=== PATIENT | female | born 1995 | race Caucasian/White ===

== ENCOUNTER 2020-10-09 16:48 | Emergency (ER) | payer MEDICAID, SELFPAY ==
--- NOTE | 2020-10-09 17:20 | XR_ITS ---
EXAMINATION: XR FOOT, LEFT CLINICAL INFORMATION: Pain fourth digit with swelling after jamming foot into door. COMPARISON: None TECHNIQUE: AP, lateral, and oblique views of the left foot. FINDINGS: There is a comminuted fracture of the terminal tuft of the distal phalanx of the fourth digit. No other fractures are seen. There is associated soft tissue swelling XR/XR foot LT 2V IMPRESSION: Fracture terminal tuft distal phalanx fourth digit.
[2020-10-09 17:24] VITALS: BP 132/78; PULSE 78; RESP 16; TEMP 36.7; O2SAT 100; BMI 23.4
--- NOTE | 2020-10-09 17:35 | ED.GENADULT ---
HPI - General Adult General Chief complaint: Extremity Injury, Lower Stated complaint: TOE INJURY Time Seen by Provider: 10/09/20 17:16 Source: patient Mode of arrival: ambulatory History of Present Illness HPI narrative: A 25-year-old female otherwise healthy presenting to the emergency department for left toe pain. She states she stubbed her toe the entrance way walking to her door. She is not sure if she has an open wound. She is able to ambulate. She denies other injuries. Unknown last tetanus. Related Data Allergies Allergy/AdvReac Type Severity Reaction Status Date / Time No Known Allergies Allergy Verified 10/09/20 17:32 [No Known Allergies*] Review of Systems Constitutional: Constitutional: Denies fever(s) Eyes: Eyes: Reports no additional eye complaints ENT: Reports system reviewed and no additional complaints, except as documented and Denies dizziness Cardiovascular: Cardiovascular: Denies chest pain and Denies dyspnea Respiratory: Respiratory: Denies dyspnea Gastrointestinal: Gastrointestinal: Denies abdominal pain Musculoskeletal: Comments: left toe pain Neurologic: Denies dizziness Psychiatric: Psychiatric: Reports no additional psychiatric complaints Endocrine: Endocrine: Reports no additional endocrine complaints Hematologic/Lymphatic: Hematologic/Lymphatic: Denies easy bleeding [facility] Past Medical History Medical History Asthma Social History Social History Advance Directives: No Advance Directives Information Provided: No Physical Exam Vital Signs: Vital Signs: Last Vital Signs Temp 98.0 F 10/09/20 17:24 Pulse 78 10/09/20 17:24 Resp 16 10/09/20 17:24 BP 132/78 10/09/20 17:24 Pulse Ox 100 10/09/20 17:24 Body Mass Index 23.4 Const: Other: Sitting upright texting on the cellphone Orientation/consciousness: patient oriented x3 HENMT: Head: Yes atraumatic Eyes: Pupils: Equal, round and reactive pupils present Neck: Neck: Yes supple Chest: Chest palpation & inspection: normal inspection of the chest Resp: Effort & Inspection: normal respiratory effort and able to speak in complete sentences Cardio: Rate: regular rate GI: Inspection: No distended Back/Spine/Pelvis: Other: normal ROM Skin: Other: abrasion noted to dorsal aspect of 4th left toe, no laceration Neuro: General: patient oriented x3 Cranial nerves: Yes Equal, round and reactive pupils present Extrem: Other: LLE- positive pedal pulse, swelling noted to left toe with ecchymosis, unable to assess capillary refill since her toes are painted, swelling also noted to 5th digit no swelling or tenderness to proximal foot, no evidence of open fracture, compartment soft, neurovascularly intact Medical Decision Making MDM Narrative Medical decision making narrative: 25-year-old female presenting to the emergency department after injuring her left foot Vitals stable, nontoxic appearing, hemodynamically stable Was sent for x-ray of her left foot to assess for fracture given swelling. No evidence of a LeFort fracture. No evidence of a Velasquez fracture. She is otherwise neurovascularly intact. Compartments are soft. No injuries to other extremities. No evidence of infectious symptoms, area appears to be ecchymosis secondary to the injury, and does not appear to be erythematous suggesting underlying cellulitis. no evidence of hyphema as ecchymosis seems to be more dorsal and inferior. Will israel tape her 4th digit to her 3rd digit. Will give her a postop shoe. She is ambulating while it is not need crutches. Will update her tetanus given the abrasion. No evidence of an open fracture. No evidence of foreign body. Discussed icing to help with the swelling. Tylenol Motrin for pain. Discharge Plan Discharge Clinical Impression: Fracture of toe of left foot Patient Disposition: Home, Self-Care Instructions: Toe Fracture (ED), R.I.C.E. Treatment (ED) Additional Instructions: Please return to the emergency department if your pain is not controlled, worsening swelling, weakness, dizziness, difficulty walking, vomiting, or any other concerning symptoms. We recommend you elevate your foot and place ice pack to help with the swelling. Take tylenol or motrin as directed for pain if needed. Use post op shoe when walking, when the swelling goes down you may resume using your other shoes. Your tetanus was updated today.
== END 2020-10-09 18:31 | disposition home or self-care (01) ==
PROVIDERS: Emergency Provider Emergency Medicine; PCP Internal Medicine Geriatric Medicine
DX: S92.902A Unspecified fracture of left foot, initial encounter for closed fracture (principal); M79.672 Pain in left foot; Y29.XXXA Contact with blunt object, undetermined intent, initial encounter; Y93.9 Activity, unspecified; Y92.9 Unspecified place or not applicable; Y99.9 Unspecified external cause status
CPT/HCPCS: 73620; 90471; 90715; 99284

== ENCOUNTER 2020-11-08 16:17 | Emergency (ER) | payer MEDICAID, SELFPAY ==
[2020-11-08 17:30] VITALS: BP 125/71; PULSE 75; RESP 16; TEMP 36.8; O2SAT 100; BMI 23.4
--- NOTE | 2020-11-08 18:29 | ED.URI ---
HPI - URI/Sore Throat General Chief Complaint: Upper Respiratory Symptoms Stated Complaint: SOB Time Seen by Provider: 11/08/20 17:48 Source: patient Mode of arrival: ambulatory Limitations: no limitations History of Present Illness HPI Narrative: This is a 25-year-old female who reports mild history of asthma otherwise no significant health problems presenting with complaint of cough for past several days also some rhinorrhea and myalgias. MD elicited complaint: cough Pertinent past history: asthma Onset (ago): day(s) Severity: mild Able to tolerate fluids by mouth: Yes Relieving factors: nothing Treatments prior to arrival: none Related Data Previous Rx's Medication Instructions Recorded azithromycin [Zithromax Z-Michael] 250 mg PO DAILY 5 Days #6 tab 11/08/20 prednisone 40 mg PO DAILY 5 Days #10 tab 11/08/20 Allergies Allergy/AdvReac Type Severity Reaction Status Date / Time No Known Allergies Allergy Verified 10/09/20 17:32 [No Known Allergies*] Review of Systems Review of Systems: Constitutional: No Weight loss, No Fever, + Chills, No Night Sweats, No Fatigue, No Malaise ENT/Mouth: No Hearing loss, No Ear Pain, No Sinus Pain, No Hoarseness, No sore throat, + Rhinorrhea, No Swallowing Difficulty Eyes: No Eye Pain, No Swelling, No Redness, No Foreign Body, No Discharge, No Vision Changes Cardiovascular: No Chest Pain, No SOB, No Dyspnea on Exertion, No Orthopnea, No Edema, No Palpitations Respiratory: + Cough, No Sputum, No Wheezing, No Smoke Exposure, No Dyspnea Gastrointestinal: No Nausea, No Vomiting, No Diarrhea, No Constipation, No abdominal Pain, No Hematochezia, No Melena Genitourinary: no irregular bleeding, No Dysuria, No Urinary Frequency, No Hematuria, No Urinary Incontinence, No Urgency, No Flank Pain, No Urinary Flow Changes, No Hesitancy Musculoskeletal: No joint pain, No Myalgias, No Joint Swelling Skin: No Skin Lesions, No rash Neuro: No Weakness, No Numbness, No Paresthesias, No Loss of Consciousness, No Dizziness, No Headache Psych: No Social Issues Heme/Lymph: No Bruising, No Bleeding,No Lymphadenopathy Endocrine: No Polyuria, No Polydipsia, No Temperature Intolerance Yes all other systems are reviewed and are negative [facility] Past Medical History Medical History Asthma Social History Social History Advance Directives: No Advance Directives Information Provided: No Physical Exam Vital Signs: Vital Signs: Last Vital Signs Temp 98.3 F 11/08/20 17:30 Pulse 75 11/08/20 17:30 Resp 16 11/08/20 17:30 BP 125/71 11/08/20 17:30 Pulse Ox 100 11/08/20 17:30 Body Mass Index 23.4 Reviewed Const: General: cooperative and healthy appearing; No acute distress or intoxicated appearing Nutritional Appearance: average body habitus Orientation/consciousness: patient oriented x3 HENMT: Head: Yes normal to inspection Ears: hearing grossly normal bilaterally Eyes: General: appearance normal, both eyes and all related structures Visual Jacobs: normal visual jacobs by confrontation Neck: Neck: Yes normal visual inspection, No positive Brudzinski's sign, No positive Kernig's sign and No tender Thyroid: Thyroid normal Chest: Chest palpation & inspection: normal inspection of the chest Resp: Other: Mild dry bronchial cough Effort & Inspection: normal respiratory effort Auscultation: clear to auscultation bilaterally Cardio: Jugular venous distension: no JVD Rhythm: regular rhythm Heart sounds: S1 normal heart sound present and S2 normal heart sound present GI: Inspection: Yes normal to inspection Percussion: Yes normal to percussion Auscultation: normal bowel sounds : General: Yes no CVA tenderness Back/Spine/Pelvis: Back: no CVA tenderness Skin: General skin exam: no rashes or lesions noted Neuro: General: patient oriented x3 Extrem: General: Yes normal to inspection Course Course Course Narrative: Hemodynamically stable. Respiratory rate 18, pulse ox 100% on room air, heart rate 78. In no acute distress. Will discharge with short course steroids, azithromycin proper use of inhaler with chamber. COVID-19 send a PCR. Will quarantine for 14 days. Clear return follow-up instructions provided. Stable for discharge. Discharge Plan Discharge Clinical Impression: Upper respiratory infection Patient Disposition: Home, Self-Care Instructions: Viral Syndrome (ED) Additional Instructions: Based on your symptoms and history we have sent a COVID-19. Although your RESULT IS PENDING at this time. RESULTS should return within 72 hours. At this time you will be contacted with either NEGATIVE OR POSITIVE results. -Please wait until we contact you for your results. At this time you will be okay for discharge. Please plan for self quarantine for up to 14 days. Do not expose yourself to others. You may not go to work. If testing does come back negative you may return to activities as long as you are no longer having any symptoms for at least 3 days. Please continue to follow cold instructions and wash your hands frequently. You may take Tylenol as directed on the bottle for pain or fever. Patient seen in the emergency department and should be excused from work until negative test results AND until 72 hours without any symptoms AND at least 10 days have passed since symptoms first appeared or since last exposure to COVID-19 positive patient CDC Guidelines for home isolation: - Stay away from others - WEAR A MASK if you are sick AND STAY HOME - Cover your mouth and nose with a tissue when you cough or sneeze. Dispose of tissues in a lined trash can and wash your hands immediately with soap and water for at least 20 seconds. If soap and water are not available, clean hands with alcohol-based hand sample sawyer that contains at least 60% alcohol. - Clean your hands often with soap and water for at least 20 seconds - Avoid touching your eyes, nose and mouth with unwashed hands - Do not share dishes, drinking glasses, cups, eating utensils, towels, or bedding with other people in your home. After using these items, wash them thoroughly with soap and water or put in the silverware buffing machine operator. - Clean high-touch surfaces in your isolation area ( sick room and bathroom) every day; let a caregiver clean and disinfect high-touch surfaces in other areas of the home. Clean the area or item with soap and water or another detergent if it is dirty. Then, use a household disinfectant. - Limit contact with pets and animals: If you must care for a pet, wash your hands before and after interacting with them Prescriptions: New azithromycin [Zithromax Z-Michael] 250 mg tablet 250 mg PO DAILY 5 Days Qty: 6 RF: 0 prednisone 20 mg tablet 40 mg PO DAILY 5 Days Qty: 10 RF: 0 Interventions: ED Discharge Assessment Last Done: 11/08/20 18:26
== END 2020-11-08 19:12 | disposition home or self-care (01) ==
PROVIDERS: Nurse Practitioner Primary Care; Emergency Provider Emergency Medicine; PCP Internal Medicine Geriatric Medicine
DX: J06.9 Acute upper respiratory infection, unspecified (principal); Z20.828 Contact with and (suspected) exposure to other viral communicable diseases; J45.909 Unspecified asthma, uncomplicated
CPT/HCPCS: 36415; 99283; U0003

== ENCOUNTER 2020-12-22 12:19 | Emergency (ER) | payer MEDICAID, SELFPAY ==
[2020-12-22 19:22] VITALS: BP 148/87; PULSE 78; RESP 18; TEMP 36.9; O2SAT 98; BMI 23.3
--- NOTE | 2020-12-22 19:22 | PC.NURSE ---
attempted to call patient into ED. No answer in waiting room x 2.
== END 2020-12-22 19:28 | disposition left against medical advice (07) ==
LOC: HO.ED 19:28
PROVIDERS: Emergency Provider Emergency Medicine; PCP Internal Medicine Geriatric Medicine
DX: R11.0 Nausea (principal); R10.11 Right upper quadrant pain
CPT/HCPCS: 99281; 99282

== ENCOUNTER 2020-12-23 05:31 | Emergency (ER) | payer MEDICAID, SELFPAY ==
--- NOTE | ~2020-12-23 | US_ITS ---
EXAMINATION: US ABDOMEN LIMITED CLINICAL INFORMATION: Right upper quadrant pain. Elevated liver function tests. Evaluate gallbladder. COMPARISON: None TECHNIQUE: Real-time imaging of the right upper quadrant abdominal viscera. FINDINGS: PANCREAS: Normal. LIVER: Normal. The liver is normal in size. The liver contour is normal. Parenchymal echogenicity is normal. No focal hepatic lesion. There is no intrahepatic biliary duct dilatation seen. GALLBLADDER: There is layering dependent echogenic sludge or bile in the gallbladder. No shadowing gallstones. No gallbladder wall thickening or pericholecystic fluid. COMMON BILE DUCT: Normal in caliber measuring 0.3 cm in diameter. RIGHT KIDNEY: Normal. No hydronephrosis. No renal calculi or focal parenchymal lesions. The kidney measures 9.4 cm in maximum dimension. FREE FLUID: None. US/US abdomen limited IMPRESSION: There is dependent sludge or bile in the gallbladder. No gallstones however. No evidence of cholecystitis. No biliary ductal dilatation.
--- NOTE | ~2020-12-23 | US_ITS ---
EXAMINATION: US OBSTETRICAL ULTRASOUND CLINICAL INFORMATION: Approximately 8 weeks , pain. Assess for ectopic. COMPARISON: None. LMP: 10/27/2020. Gestational age by maternal dates is 8 weeks 1 day. Estimated date of delivery by maternal dates is 08/03/2021. TECHNIQUE: Ultrasound of the maternal pelvis is performed using transabdominal transducer. M-mode Doppler is also performed. FINDINGS: There is a single intrauterine gestational sac with visible yolk sac, embryo/fetus, and cardiac activity. There is no significant subchorionic hemorrhage or hematoma. HR: 163 beats per minute. CRL (crown rump length): 1.6 cm (8 weeks 0 days +/- 4 days). CHELA (estimated date of delivery): 08/04/2021 +/- 4 days. MATERNAL ADNEXA: The right maternal ovary measures 3.0 x 2.1 x 2.3 cm. The left maternal ovary measures 2.4 x 1.0 x 1.8 cm. There is no significant maternal adnexal mass. No maternal pelvic ascites. US/US OB <= 14 weeks fetus IMPRESSION: 1. Single intrauterine gestation with ultrasound gestational age of 8 weeks 0 days +/- 4 days. 2. Estimated date of delivery is 08/04/2021 +/- 4 days. 3. No maternal adnexal mass or pelvic ascites.
[2020-12-23 05:37] VITALS: BP 130/54; BP 174/94; PULSE 71; PULSE 73; RESP 15; O2SAT 99; BMI 23.4
[2020-12-23] MEDS: 0.9 % Sodium Chloride 1,000 ML 999 ML IV (06:12)
[2020-12-23] MEDS: diphenhydrAMINE HCL 50 MG/ML VIAL 25 MG IVPUSH (06:13)
[2020-12-23 06:30] LABS: Basophils Percent Auto 0.2 % (0-2); Eosinophils Percent Auto 0.1 % (0-4); Hematocrit 40.2 % (37-47); Hemoglobin 13.4 g/dl (12.0-16.0); Imm Gran Abs Auto 0.14 X10*3/uL (0.00-0.03); Imm Gran Pct Auto 0.6 % (0.0-0.4); Lymphocytes Absolute Auto 1.7 X10*3/uL (1.2-4.9); Lymphocytes Percent Auto 6.7 % (20-40); MANUAL DIFF FLAG SCAN; Mean Corpuscular HGB Conc 33.3 g/dl (31.0-35.0); Mean Corpuscular Hemoglobin 29.8 pg (27.0-33.0); Mean Corpuscular Volume 89.3 fL (80-98); Monocytes Percent Auto 3.9 % (2-11); Neutrophils Absolute Auto 22.5 X10*3/uL (2.0-8.3); Neutrophils Percent Auto 88.5 % (45-73); Platelet Count 361 X10*3/uL (160-400); Red Cell Distribution Width 11.9 % (11.0-16.0); SCAN SMEAR FLAG 1; White Blood Count 25.4 X10*3/uL (4.8-10.8)
[2020-12-23 06:32] LABS: Glucose Urine UA NEG (NEG); Leukocyte Esterase Urine NEG (NEG); Mean Platelet Volume 9.9 fL (9.4-12.3); Nitrite Urine NEG (NEG); Specific Gravity - Urine >= 1.030 (1.005-1.025); Urine Blood TRACE (NEG); Urine Ketones 40 MG/DL (NEG); Urine Protein 1+ MG/DL (NEG-TRACE)
--- NOTE | 2020-12-23 06:32 | PC.NURSE ---
Patient medicated per emar as noted. MD evaluation completed and patient line'd and lab'd
[2020-12-23 06:33] LABS: Appearance Urine CLOUDY; Color Urine DARK YELLOW
[2020-12-23 06:39] LABS: Bacteria Urine TRACE /LPF; Mucus Urine 4+ /LPF; RBC Urine 0-2 /HPF (0); Squamous Epithelial Cell Urine 4+ /LPF
[2020-12-23 06:40] LABS: Alanine Aminotransferase 52 U/L (0-31); Albumin Level 4.9 g/dL (3.5-5.0); Alkaline Phosphatase 64 U/L (39-117); Anion Gap 19 (12-20); Aspartate Amino Transferase 34 U/L (5-31); Bilirubin Total 1.3 mg/dL (0.0-1.0); Blood Urea Nitrogen 11 mg/dL (9-16); Calcium 9.9 mg/dL (8.4-10.2); Carbon Dioxide 22 mmol/L (22-29); Chloride 99 mmol/L (96-108); Creatinine Clr Calc Pharmacy 81.6; Estimated Glomerular Filt Rate > 60; Glucose Random 174 mg/dL (60-115); Lipase 4 U/L (8-78); Potassium 3.6 mmol/L (3.3-5.1); Sodium 136 mmol/L (135-145)
[2020-12-23 06:54] LABS: SLIDE REVIEW VERIFIED
--- NOTE | 2020-12-23 07:21 | ED_ITS ---
HPI - General Adult General Chief complaint: Nausea/Vomiting/Diarrhea Stated complaint: NAUSEA AND VOMITING Time Seen by Provider: 12/23/20 05:45 Source: patient Mode of arrival: EMS Limitations: no limitations History of Present Illness HPI narrative: 25-year-old female who presents emergency department for evaluat ion of nausea, vomiting, diarrhea and abdominal pain. The patient states that she is approximately 8 weeks with a last menstrual period being on 10/27/2020 she is a G4, P0. The patient states that she has been sick for approximately 4 days. She states that she has been vomiting all day and unable to eat food or drink fluid. She states that she has had 2-3 episodes of diarrhea per day. She states that occasionally she has noted blood in the emesis. She is also complaining of abdominal pain. She points to her mid epigastric area when asked to localize the pain. She describes the pain as a constant, cramping sensation. She also states she is having a cramping sensation in her lower abdomen which is mild compared to her epigastric area. The patient has established [employer] [facility] and states that she has an ultrasound scheduled at the end of the month but has not had an ultrasound yet during this . Related Data Allergies Allergy/AdvReac Type Severity Reaction Status Date / Time Penicillins Allergy Unknown Verified 12/23/20 05:43 Review of Systems Review of Systems: Yes all other systems are reviewed and are negative Neurologic: Reports Abnormal speech present [facility] Past Medical History [facility] Narrative: Patient has a history of asthma, she denies tobacco, alcohol and drug use. Medical History Asthma Social History Social History Smoking Status: Never smoker Use of substances other than those prescribed or required for medical reasons: No Advance Directives: No Advance Directives Information Provided: No Physical Exam Vital Signs: Vital Signs: Last Vital Signs Pulse 73 12/23/20 05:37 Resp 15 12/23/20 05:37 BP 130/54 L 12/23/20 05:37 Pulse Ox 99 12/23/20 05:37 Body Mass Index 23.4 Const: General: cooperative, in distress (Secondary to abdominal pain, nausea and vomiting) and anxious Orientation/consciousness: oriented to person and oriented to place Limitations: no limitations HENMT: Head: Yes normal to inspection, Yes normocephalic and Yes atraumatic Ears: external ears normal General nose exam: Normal external nose present Face and sinus: Yes normal facial exam Mouth: Normal oral and palatal mucosa present Throat: Yes posterior oropharynx normal Eyes: Periorbital: periorbital findings normal Eyelids: Yes eyelids normal Conjunctivae: conjunctivae normal Sclerae: sclerae normal Corneas: corneas normal Pupils: Equal, round and reactive pupils present Direct Ophthalmoscopy: normal light reflex Neck: Neck: Yes full ROM, Yes no lymphadenopathy, Yes no meningeal signs, Yes trachea midline and Yes supple Chest: Chest palpation & inspection: normal inspection of the chest and normal palpation of entire chest wall Resp: Effort & Inspection: normal respiratory effort and able to speak in complete sentences Auscultation: clear to auscultation bilaterally Cardio: Rate: regular rate Rhythm: regular rhythm Heart sounds: S1 normal heart sound present, S2 normal heart sound present and no murmurs GI: Inspection: Yes normal to inspection Palpation (GI): Soft to palpation, Tenderness to palpation present (GI) in the epigastrum (Moderate) and suprapu bicly ([id number]), no guarding, not rigid and No hepatosplenomegaly present : General: Yes no CVA tenderness Back/Spine/Pelvis: Back: no CVA tenderness Cervical Spine: normal cervical lordosis Thoracic/Lumbar Spine: thoracic and lumbar spine normal to inspection Skin: Lesions: no lesions Rashes: no rashes Wounds: no wounds Neuro: General: oriented to person, oriented to place and no meningeal signs Cranial nerves: Yes CN's II-XII intact bilaterally and Yes Equal, round and reactive pupils present Cognition (Neuro): normal cognition Speech: Abnormal speech present Motor exam (neuro): 5/5 motor strength present throughout Extrem: General: Yes normal to inspection and Yes full ROM Psych: Appearance: well kempt Mental Status: mental status grossly normal Speech and movement: Normal speech and movement present Affect: normal affect Attitude: cooperative Thought process: Normal thought process present Thought content: Normal thought content present Course Course Course Narrative: 25-year-old female, G4, P0, approximately 8 weeks by dates, who presents emergency department for evaluation of nausea, vomiting, diarrhea abdominal pain x4 days. Physical examination did reveal a young woman who is in distress secondary to her pain and vomiting. She did have moderate midepigastric tenderness and mild to moderate suprapubic tenderness. Patient was ordered to get Reglan 10 mg IV and Benadryl 50 mg IV. Was also treated with normal saline IV x1 L. 0733: The patient states that her nausea and abdominal pain is improved. Repeat exam did reveal mild midepigastric tenderness and mild suprapubic tenderness. She continues to complain of nausea therefore she was given Phenergan 12.5 mg IV and a 2nd L of normal saline IV. [place] [id number] which may be secondary to her demarginalization/stress. She also has slight elevation in her AST and ALT with normal alk-phos. Quantitative beta HCG was elevated at 185,876. A ultrasound was ordered of the patient's right upper quadrant and pelvis to evaluate the and rule out biliary disease. At the end of my shift, the patient's care was turned over to my colleague, Dr. Kristina Mejia. Medical Decision Making Lab Data Result diagrams: 12/23/20 06:05 12/23/20 06:05 Labs: Lab Results 12/23/20 12/23/20 12/23/20 Range/Units 06:05 06:05 06:05 WBC 25.4 H (4.8-10.8) X10*3/uL RBC 4.50 (4.20-5.50) X10*6/uL Hgb 13.4 (12.0-16.0) g/dl Hct 40.2 (37-47) % MCV 89.3 (80-98) fL MCH 29.8 (27.0-33.0) pg MCHC 33.3 (31.0-35.0) g/dl RDW 11.9 (11.0-16.0) % Plt Count 361 (160-400) X10*3/uL MPV 9.9 (9.4-12.3) fL Immature Gran % (Auto) 0.6 H (0.0-0.4) % Neut % (Auto) 88.5 H (45-73) % Lymph % (Auto) 6.7 L (20-40) % [place] % (Auto) 3.9 (2-11) % Eos % (Auto) 0.1 (0-4) % Baso % (Auto) 0.2 (0-2) % Lymph # (Auto) 1.7 (1.2-4.9) X10*3/uL [place] # (Auto) 1.0 (0.1-1.2) X10*3/uL Eos # (Auto) 0.0 (0.0-0.4) X10*3/uL Baso # (Auto) 0.0 (0.0-0.2) X10*3/uL Abs Immat Gran (auto) 0.14 H (0.00-0.03) X10*3/uL Absolute Neuts (auto) 22.5 H (2.0-8.3) X10*3/uL Absolute Nucleated RBC 0.000 (0.0-0.012) X10*3/uL Nucleated RBC % (auto) 0.0 (0.0-0.2) /100WBC Smear Tech's Comments VERIFIED Sodium 136 (135-145) mmol/L Potassium 3.6 (3.3-5.1) mmol/L Chloride 99 (96-108) mmol/L Carbon Dioxide 22 (22-29) mmol/L Anion Gap 19 (12-20) BUN 11 (9-16) mg/dL Creatinine 0.75 (0.5-1.4) mg/dL Estim Creat Clear Calc 81.6 Estimated GFR > 60 Random Glucose 174 H (60-115) mg/dL Calcium 9.9 (8.4-10.2) mg/dL Total Bilirubin 1.3 H (0.0-1.0) mg/dL AST 34 H (5-31) U/L ALT 52 H (0-31) U/L Alkaline Phosphatase 64 (39-117) U/L Total Protein 8.0 (6.5-8.0) g/dL Albumin 4.9 (3.5-5.0) g/dL Lipase 4 L (8-78) U/L Beta HCG, Quant 030248 mIU/mL Urine Color DARK YELLOW Urine Appearance CLOUDY Urine pH 6.0 (5.0-8.0) Ur Specific [place] >= 1.030 H (1.005-1.025) Urine Protein 1+ H (NEG-TRACE) MG/DL Urine Glucose (UA) NEG (NEG) MG/DL Urine Ketones 40 (NEG) MG/DL Urine Blood TRACE (NEG) Urine Nitrite NEG (NEG) Ur Leukocyte Esterase NEG (NEG) Urine RBC 0-2 (0) /HPF Urine WBC 1-4 (0-4) /HPF Ur Squamous Epith Cells 4+ /LPF Urine Bacteria TRACE /LPF Urine Mucus 4+ /LPF
[2020-12-23] MEDS: 0.9 % Sodium Chloride 1,000 ML 999 ML IVCONT (07:30)
--- NOTE | 2020-12-23 10:01 | PC.NURSE ---
pt tolerating small sips of fluid. She moans when approached, is otherwise sleeping. She states she has abdominal pain. Will continue to monitor
[2020-12-23 10:35] VITALS: BP 101/56; PULSE 80; RESP 16; O2SAT 98
== END 2020-12-23 11:04 | disposition home or self-care (01) ==
PROVIDERS: Emergency Provider Emergency Medicine Emergency Medical Services
DX: O26.91 Pregnancy related conditions, unspecified, first trimester (principal); R11.2 Nausea with vomiting, unspecified; Z3A.08 8 weeks gestation of pregnancy
CPT/HCPCS: 36415; 76705; 76801; 80053; 81001; 83690; 84702; 85025; 96361; 96374; 96375; 99284; J1200; J2765

== ENCOUNTER 2021-06-04 21:32 | Emergency (ER) | payer OTHER, MEDICAID, SELFPAY ==
[2021-06-04 21:44] VITALS: BP 110/62; PULSE 59; RESP 18; TEMP 37; O2SAT 99; BMI 25.4
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
[2021-06-04] MEDS: Cyclobenzaprine HCl 10 MG TABLET PO (23:54)
== END 2021-06-04 23:59 | disposition home or self-care (01) ==
PROVIDERS: Emergency Provider Emergency Medicine Emergency Medical Services; PCP Internal Medicine Geriatric Medicine
DX: S16.1XXA Strain of muscle, fascia and tendon at neck level, initial encounter (principal); S06.0X0A Concussion without loss of consciousness, initial encounter; S30.860A Insect bite (nonvenomous) of lower back and pelvis, initial encounter; M54.2 Cervicalgia; V43.52XA Car driver injured in collision with other type car in traffic accident, initial encounter; Y93.9 Activity, unspecified; Y92.410 Unspecified street and highway as the place of occurrence of the external cause; Y99.9 Unspecified external cause status; Z79.899 Other long term (current) drug therapy
CPT/HCPCS: 99284

== ENCOUNTER 2021-12-13 10:34 | Emergency (ER) | payer MEDICAID, SELFPAY ==
--- NOTE | ~2021-12-13 | US_ITS ---
EXAMINATION: US PELVIS TRANSVAGINAL CLINICAL INFORMATION: Abdominal pain. Bleeding. COMPARISON: April 13, 2014 TECHNIQUE: Transcutaneous and transvaginal pelvic ultrasound. Transvaginal scanning was performed after voiding to better evaluate the endometrium and adnexa. FINDINGS: The uterus measures 8.0 x 3.0 x 4.6 cm. The uterus is anteverted. No suspicious abnormalities region of the cervix. The uterine contour is smooth. The endometrium measures 0.5 cm. IUD seen in place. No focal abnormalities within the myometrium. The right ovary measures approximately 4.2 x 2.3 x 2.5 cm. The calculated right ovarian volume is approximately 4.6 mL. There is normal vascular flow to the adnexa. No abnormal adnexal masses. The left ovary measures 2.9 x 1.0 x 2.1 cm. The calculated left ovarian volume is approximately 3.2 mL. Normal vascular flow present. No abnormal adnexal mass. No significant free pelvic fluid. US/US pelvic and transvaginal IMPRESSION: IUD in position. No suspicious pelvic findings.
[2021-12-13 10:41] VITALS: BP 145/83; PULSE 83; RESP 19; TEMP 36.6; O2SAT 100; BMI 23.6
--- NOTE | 2021-12-13 13:17 | ED_ITS ---
HPI - General Chief complaint: Vaginal Bleeding Stated complaint: vaginal bleeding iud quest Time Seen by Provider: 12/13/21 13:04 Source: patient Mode of arrival: ambulatory Limitations: no limitations History of Present Illness HPI Narrative: 26 y/o female presenting with lower abdominal pain and intermittent vaginal bleeding for the last 3 days. She reports taking a home test today that was positive. She has an IUD in place. She reports having 3 miscarriages in the past as well as 3 abortions. She does not recall when her last menstrual period was but she was given him regularly and thinks it was in the middle of November. She reports 3 days ago she started have some light pink vaginal bleeding when she wiped. It resolved and recurred again this morning. She took a test that was positive. She called the [facility] and was unable to be evaluated for several days so she came to the ER for further evaluation. She reports lower abdominal cramping intermittently, in the middle and not on 1 side more than the other. No fever, chills, vaginal discharge. Not concerned about STI. MD Complaint: abdominal pain and vaginal bleeding Onset (ago): day(s) (3) Pain Consistency: intermittent Location: pelvis Severity: mild Severity scale (1-10): 4 Quality: Cramping Relieving factors: none Exacerbating factors: none Associated symptoms: abdominal pain Vaginal discharge: none Vaginal bleeding: light Date of Last Menstrual Period: 11/15/21 Patient : Yes Related Data : 6 Para: 0 Total number of abortions (spontaneous and elective): 6 Previous Rx's Medication Instructions Recorded doxylamine 20 mg-pyridoxine 20 mg 1 tab PO BID PRN #30 tab 12/23/20 tablet,immediate and delayed release promethazine 25 mg tablet 25 mg PO TID PRN #30 tab 12/23/20 cyclobenzaprine 10 mg tablet 10 mg PO TID PRN #20 tab 06/04/21 Allergies Allergy/AdvReac Type Severity Reaction Status Date / Time Penicillins Allergy Unknown Verified 12/23/20 05:43 Review of Systems Review of Systems: Constitutional: No Fever, No Chills ENT/Mouth: No sore throat, No Rhinorrhea, No Swallowing Difficulty Cardiovascular: No Chest Pain, No SOB, No Orthopnea, No Edema Respiratory: No Cough, No Sputum, No Wheezing, No dyspnea Gastrointestinal: No Nausea, No Vomiting, No Diarrhea, + abdominal Pain, No Hematochezia, No Melena Genitourinary: No Dysuria, No Urinary Frequency, No Hematuria, +vaginal bleeding Musculoskeletal: No joint pain, No Myalgias Skin: No Skin Lesions, No rash Neuro: No Weakness, No Numbness, No Dizziness, No Headache Psych: +Anxiety/Panic, No Depression Heme/Lymph: No Bruising, No Lymphadenopathy PMFSH Past Medical History Medical History Asthma : 6 Para: 0 Total number of abortions (spontaneous and elective): 6 Date of Last Menstrual Period: 11/15/21 Social History Social History Advance Directives: No Advance Directives Information Provided: Yes Patient : Yes Physical Exam Vital Signs: Vital Signs: Last Vital Signs Temp 98 F 12/13/21 10:41 Pulse 59 12/13/21 14:17 Resp 16 12/13/21 14:17 BP 127/77 12/13/21 14:17 Pulse Ox 99 12/13/21 14:17 BMI result Body Mass Index 23.6 Appearance: Alert. Oriented X3. No acute distress. Eyes: Pupils equal, round and reactive to light. ENT: Pharynx normal. Neck: Normal inspection. Neck supple. CVS: Normal heart rate and rhythm. Pulses normal. Respiratory: No respiratory distress. Breath sounds normal. Abdomen: Soft with mild suprapubic tenderness centrally, +BS x4. Pelvic deferred Skin: Skin warm and dry. Normal skin color. Normal skin turgor. No rashes. Extremities: No lower extremity edema. Neuro: Oriented X 3. Nonfocal. Course Course Course Narrative: 26 y/o female s/p 3 elective and 3 spontaneous abortions in the past presents with + test at home despite IUD. She has lower abdominal cramping and light vaginal bleeding. Will check HCG quant and pelvic U/S. Reevaluation(s) Reevaluation #1: HCG quant is negative. Patient informed. Will get pelvic U/S to assess positioning of IUD. Reevaluation #2: Pelvic ultrasound showed the IUD is in adequate position. At this time was ruled out and patient is satisfied with the results of today. She is declining a pelvic exam at this time, saying she does not need it and she is reassured with the information provided today. She will follow-up with the top history is needed. She is stable for discharge home. MDM - OB/Uterine Contractions Lab Data Result diagrams: 12/13/21 13:58 12/13/21 13:58 Labs: Lab Results 12/13/21 12/13/21 12/13/21 Range/Units 13:57 13:58 13:58 WBC 8.6 (4.8-10.8) X10*3/uL RBC 4.48 (4.20-5.50) X10*6/uL Hgb 13.5 (12.0-16.0) g/dl Hct 41.2 (37.0-47.0) % MCV 92.0 (80.0-98.0) fL MCH 30.1 (27.0-33.0) pg MCHC 32.8 (31.0-35.0) g/dl RDW 12.2 (11.0-16.0) % Plt Count 314 (160-400) X10*3/uL MPV 9.8 (9.4-12.3) fL Immature Gran % (Auto) 0.2 (0.0-0.4) % Neut % (Auto) 62.4 (45-73) % Lymph % (Auto) 28.5 (20-40) % [place] % (Auto) 6.9 (2-11) % Eos % (Auto) 1.8 (0-4) % Baso % (Auto) 0.2 (0-2) % Lymph # (Auto) 2.4 (1.2-4.9) X10*3/uL [place] # (Auto) 0.6 (0.1-1.2) X10*3/uL Eos # (Auto) 0.2 (0.0-0.4) X10*3/uL Baso # (Auto) 0.0 (0.0-0.2) X10*3/uL Abs Immat Gran (auto) 0.02 (0.00-0.03) X10*3/uL Absolute Neuts (auto) 5.3 (2.0-8.3) x10*3/uL Absolute Nucleated RBC 0.000 (0.0-0.012) X10*3/uL Nucleated RBC % (auto) 0.0 (0.0-0.2) /100WBC Sodium 136 (135-145) mmol/L Potassium 4.5 D (3.3-5.1) mmol/L Chloride 105 (96-108) mmol/L Carbon Dioxide 27 (22-29) mmol/L Anion Gap 9 L (12-20) BUN 13 (9-16) mg/dL Creatinine 0.75 (0.5-1.4) mg/dL Estim Creat Clear Calc 85.0 Estimated GFR > 60 Random Glucose 92 (60-115) mg/dL Calcium 9.9 (8.4-10.2) mg/dL Magnesium 2.1 (1.6-2.6) mg/dL Total Bilirubin 0.7 (0.0-1.0) mg/dL Direct Bilirubin 0.2 (0.0-0.5) mg/dL AST 14 D (5-31) U/L ALT 11 (0-31) U/L Alkaline Phosphatase 76 (39-117) U/L Total Protein 7.5 (6.5-8.0) g/dL Albumin 4.5 (3.5-5.0) g/dL Beta HCG, Quant < 2 mIU/mL Urine Color Urine Appearance Urine pH (5.0-8.0) Ur Specific [place] (1.005-1.025) Urine Protein (NEG-TRACE) MG/DL Urine Glucose (UA) (NEG) MG/DL Urine Ketones (NEG) MG/DL Urine Blood (NEG) Urine Nitrite (NEG) Ur Leukocyte Esterase (NEG) Urine Test (NEGATIVE) Blood Type O Positive 12/13/21 12/13/21 Range/Units 13:58 13:58 WBC (4.8-10.8) X10*3/uL RBC (4.20-5.50) X10*6/uL Hgb (12.0-16.0) g/dl Hct (37.0-47.0) % MCV (80.0-98.0) fL MCH (27.0-33.0) pg MCHC (31.0-35.0) g/dl RDW (11.0-16.0) % Plt Count (160-400) X10*3/uL MPV (9.4-12.3) fL Immature Gran % (Auto) (0.0-0.4) % Neut % (Auto) (45-73) % Lymph % (Auto) (20-40) % [place] % (Auto) (2-11) % Eos % (Auto) (0-4) % Baso % (Auto) (0-2) % Lymph # (Auto) (1.2-4.9) X10*3/uL [place] # (Auto) (0.1-1.2) X10*3/uL Eos # (Auto) (0.0-0.4) X10*3/uL Baso # (Auto) (0.0-0.2) X10*3/uL Abs Immat Gran (auto) (0.00-0.03) X10*3/uL Absolute Neuts (auto) (2.0-8.3) x10*3/uL Absolute Nucleated RBC (0.0-0.012) X10*3/uL Nucleated RBC % (auto) (0.0-0.2) /100WBC Sodium (135-145) mmol/L Potassium (3.3-5.1) mmol/L Chloride (96-108) mmol/L Carbon Dioxide (22-29) mmol/L Anion Gap (12-20) BUN (9-16) mg/dL Creatinine (0.5-1.4) mg/dL Estim Creat Clear Calc Estimated GFR Random Glucose (60-115) mg/dL Calcium (8.4-10.2) mg/dL Magnesium (1.6-2.6) mg/dL Total Bilirubin (0.0-1.0) mg/dL Direct Bilirubin (0.0-0.5) mg/dL AST (5-31) U/L ALT (0-31) U/L Alkaline Phosphatase (39-117) U/L Total Protein (6.5-8.0) g/dL Albumin (3.5-5.0) g/dL Beta HCG, Quant mIU/mL Urine Color YELLOW Urine Appearance HAZY Urine pH 8.0 (5.0-8.0) Ur Specific [place] 1.020 (1.005-1.025) Urine Protein NEG (NEG-TRACE) MG/DL Urine Glucose (UA) NEG (NEG) MG/DL Urine Ketones NEG (NEG) MG/DL Urine Blood NEG (NEG) Urine Nitrite NEG (NEG) Ur Leukocyte Esterase NEG (NEG) Urine Test NEGATIVE (NEGATIVE) Blood Type Discharge Plan Discharge Clinical Impression: Vaginal bleeding Patient Disposition: Home, Self-Care Additional Instructions: Your labs and urine test today showed you are NOT Your ultrasound showed your IUD is in the correct position Your light bleeding and cramping may just be due to your period Follow up with your doctor as needed If you develop new or worsening symptoms call 911 or come back to the ER for further evaluation. Prescriptions: No Action doxylamine-pyridoxine (vit B6) 20-20 mg tablet,IR,delayed rel,biphasic 1 tab PO BID PRN (Reason: nausea and vomiting) Qty: 30 1RF promethazine 25 mg tablet 25 mg PO TID PRN (Reason: nausea and vomiting) Qty: 30 0RF cyclobenzaprine 10 mg tablet 10 mg PO TID PRN (Reason: muscle spasm) Qty: 20 0RF
[2021-12-13 14:04] LABS: MANUAL DIFF FLAG NO
[2021-12-13 14:06] LABS: Basophils Percent Auto 0.2 % (0-2); Eosinophils Absolute Auto 0.2 X10*3/uL (0.0-0.4); Eosinophils Percent Auto 1.8 % (0-4); Hematocrit 41.2 % (37.0-47.0); Hemoglobin 13.5 g/dl (12.0-16.0); Imm Gran Abs Auto 0.02 X10*3/uL (0.00-0.03); Imm Gran Pct Auto 0.2 % (0.0-0.4); Lymphocytes Absolute Auto 2.4 X10*3/uL (1.2-4.9); Lymphocytes Percent Auto 28.5 % (20-40); Mean Corpuscular HGB Conc 32.8 g/dl (31.0-35.0); Mean Corpuscular Hemoglobin 30.1 pg (27.0-33.0); Mean Platelet Volume 9.8 fL (9.4-12.3); Monocytes Absolute Auto 0.6 X10*3/uL (0.1-1.2); Monocytes Percent Auto 6.9 % (2-11); Neutrophils Absolute Auto 5.3 x10*3/uL (2.0-8.3); Neutrophils Percent Auto 62.4 % (45-73); Platelet Count 314 X10*3/uL (160-400); Red Blood Count 4.48 X10*6/uL (4.20-5.50); Red Cell Distribution Width 12.2 % (11.0-16.0); White Blood Count 8.6 X10*3/uL (4.8-10.8)
[2021-12-13 14:09] LABS: Appearance Urine HAZY; Color Urine YELLOW; Glucose Urine UA NEG (NEG); Leukocyte Esterase Urine NEG (NEG); Nitrite Urine NEG (NEG); Urine Blood NEG (NEG); Urine Ketones NEG (NEG); Urine Protein NEG (NEG-TRACE)
[2021-12-13 14:10] LABS: UPreg QC Valid YES; Urine Pregnancy NEGATIVE (NEGATIVE)
[2021-12-13 14:17] VITALS: BP 127/77; PULSE 59; RESP 16; O2SAT 99
[2021-12-13 14:28] LABS: Alanine Aminotransferase 11 U/L (0-31); Albumin Level 4.5 g/dL (3.5-5.0); Alkaline Phosphatase 76 U/L (39-117); Anion Gap 9 (12-20); Aspartate Amino Transferase 14 U/L (5-31); Bilirubin Direct 0.2 mg/dL (0.0-0.5); Bilirubin Total 0.7 mg/dL (0.0-1.0); Carbon Dioxide 27 mmol/L (22-29); Chloride 105 mmol/L (96-108); Estimated Glomerular Filt Rate > 60; Glucose Random 92 mg/dL (60-115); Magnesium 2.1 mg/dL (1.6-2.6); Potassium 4.5 mmol/L (3.3-5.1); Sodium 136 mmol/L (135-145); Total Protein 7.5 g/dL (6.5-8.0)
[2021-12-13 14:33] LABS: HCG Quantitative < 2 mIU/mL
[2021-12-13 15:03] LABS: Blood Urea Nitrogen 13 mg/dL (9-16); Calcium 9.9 mg/dL (8.4-10.2)
[2021-12-13 15:54] VITALS: BP 124/80; PULSE 57; RESP 16; TEMP 36.6; O2SAT 100
== END 2021-12-13 16:19 | disposition home or self-care (01) ==
PROVIDERS: Physician Assistant; Emergency Provider Emergency Medicine; PCP Internal Medicine Geriatric Medicine
DX: R10.30 Lower abdominal pain, unspecified (principal); N93.9 Abnormal uterine and vaginal bleeding, unspecified; Z32.02 Encounter for pregnancy test, result negative
CPT/HCPCS: 36415; 76830; 76856; 80048; 80076; 81003; 81025; 83735; 84702; 85025; 86900; 86901; 99284

== ENCOUNTER 2022-03-31 11:10 | Emergency (ER) | payer OTHER, SELFPAY ==
--- NOTE | ~2022-03-31 | XR_ITS ---
EXAMINATION: XR CHEST CLINICAL INFORMATION: Cough. COMPARISON: Comparison 07/29/2017 chest radiograph. TECHNIQUE: Frontal view of the chest was obtained. FINDINGS: No significant abnormality is noted involving the heart, lungs, mediastinum, bony thorax or soft tissues. XR/XR chest 1V IMPRESSION: No acute cardiopulmonary process.
[2022-03-31 11:14] VITALS: BP 136/88; PULSE 88; RESP 18; TEMP 37; O2SAT 96; BMI 25.4
[2022-03-31 11:37] LABS: MANUAL DIFF FLAG NO
[2022-03-31 11:39] LABS: Basophils Percent Auto 0.4 % (0-2); Eosinophils Absolute Auto 0.5 X10*3/uL (0.0-0.4); Eosinophils Percent Auto 5.4 % (0-4); Hematocrit 39.9 % (37.0-47.0); Hemoglobin 13.1 g/dl (12.0-16.0); Imm Gran Abs Auto 0.02 X10*3/uL (0.00-0.03); Imm Gran Pct Auto 0.2 % (0.0-0.4); Lymphocytes Absolute Auto 2.7 X10*3/uL (1.2-4.9); Lymphocytes Percent Auto 27.2 % (20-40); Mean Corpuscular HGB Conc 32.8 g/dl (31.0-35.0); Mean Corpuscular Hemoglobin 29.8 pg (27.0-33.0); Mean Corpuscular Volume 90.7 fL (80.0-98.0); Mean Platelet Volume 9.6 fL (9.4-12.3); Monocytes Absolute Auto 0.9 X10*3/uL (0.1-1.2); Monocytes Percent Auto 9.1 % (2-11); Neutrophils Absolute Auto 5.8 x10*3/uL (2.0-8.3); Neutrophils Percent Auto 57.7 % (45-73); Platelet Count 338 X10*3/uL (160-400); Red Cell Distribution Width 12.8 % (11.0-16.0); White Blood Count 10.1 X10*3/uL (4.8-10.8)
[2022-03-31 11:54] LABS: Alanine Aminotransferase 21 U/L (0-31); Albumin Level 4.3 g/dL (3.5-5.0); Alkaline Phosphatase 72 U/L (39-117); Anion Gap 10 (12-20); Aspartate Amino Transferase 16 U/L (5-31); Bilirubin Total 0.6 mg/dL (0.0-1.0); Blood Urea Nitrogen 7 mg/dL (9-16); Calcium 9.4 mg/dL (8.4-10.2); Carbon Dioxide 26 mmol/L (22-29); Chloride 106 mmol/L (96-108); Creatinine Clr Calc Pharmacy 89.3; Estimated Glomerular Filt Rate > 60; Glucose Random 85 mg/dL (60-115); Potassium 3.6 mmol/L (3.3-5.1); Sodium 138 mmol/L (135-145); Total Protein 7.2 g/dL (6.5-8.0)
[2022-03-31 11:56] LABS: Influenza A Negative (Negative); Influenza B2 Negative (Negative)
[2022-03-31 11:57] LABS: COVID-19 Test Negative (Negative); IDNOW Serial# 16C4AD1C
--- NOTE | 2022-03-31 13:26 | ED_ITS ---
HPI - URI/Sore Throat General Chief Complaint: Upper Respiratory Symptoms Stated Complaint: Asthma Time Seen by Provider: 03/31/22 13:22 Source: patient Mode of arrival: ambulatory History of Present Illness HPI Narrative: 26-year-old female with past medical history of asthma presenting to the ED complaining of productive cough, wheezing, and chest tightness at night x3 days S/P cleaning air conditioner. Admits to using inhalers and took 1 dose of 20 mg of prednisone yesterday from prior prescription without relief. Denies fever, [place], recent travel, sick contacts MD elicited complaint: cough Onset (ago): day(s) Related Data Previous Rx's Medication Instructions Recorded doxylamine 20 mg-pyridoxine 20 mg 1 tab PO BID PRN #30 tab 12/23/20 tablet,immediate and delayed release promethazine 25 mg tablet 25 mg PO TID PRN #30 tab 12/23/20 cyclobenzaprine 10 mg tablet 10 mg PO TID PRN #20 tab 06/04/21 albuterol sulfate 2.5 mg/0.5 mL 5 mg INHALATION Q4H PRN #30 ea 03/31/22 solution for nebulization albuterol sulfate 90 mcg/actuation 2 puff INHALATION Q4-6H PRN #6.7 g 03/31/22 aerosol inhaler prednisone 20 mg tablet 40 mg PO DAILY 5 Days #10 tab 03/31/22 Allergies Allergy/AdvReac Type Severity Reaction Status Date / Time Penicillins Allergy Unknown Verified 12/23/20 05:43 Review of Systems Review of Systems: Constitutional: No Fever, No Chills, No Fatigue, No Ma laise ENT/Mouth: No Ear Pain, No Nasal Congestion, No sore throat, No Rhinorrhea, No Swallowing Difficulty Eyes: No Eye Pain, No Swelling, No Redness, No Vision Changes Cardiovascular: + Chest tightness, +intermittent SOB, No Edema, No Palpitations Respiratory: + Cough, No Sputum, + Wheezing, No Smoke Exposure, No Dyspnea Gastrointestinal: No Nausea, No Vomiting, No Diarrhea, No Constipation, No A bdominal pain Genitourinary: No Dysuria, No Urinary Frequency, No Hematuria, No Flank Pain Musculoskeletal: No joint pain, No Myalgias, No Joint Swelling Skin: No Skin Lesions, No rash Neuro: No Weakness, No Dizziness, No Headache Yes all other systems are reviewed and are negative PMFSH Past Medical History Attestation statement: The following information was validated with the patient. Medical History Asthma Social History Social History Advance Directives: No Advance Directives Information Provided: No Physical Exam Vital Signs: Vital Signs: Last Vital Signs Temp 98.6 F 03/31/22 11:14 Pulse 67 03/31/22 14:54 Resp 20 03/31/22 13:49 BP 136/88 03/31/22 11:14 Pulse Ox 96 03/31/22 11:14 BMI result Body Mass Index 25.4 Const: General: cooperative, healthy appearing and no acute distress Orientation/consciousness: patient oriented x3 Limitations: no limitations HEENT: Head: Yes normal to inspection and Yes atraumatic Ears: hearing grossly normal bilaterally General nose exam: Normal external nose present Face and sinus: Yes normal facial exam Eyes: General: appearance normal, both eyes and all related structures EOM: EOMs intact bilaterally Neck: Neck: Yes normal visual inspection and Yes no meningeal signs Resp: Effort & Inspection: normal respiratory effort and no respiratory distress Auscultation: clear to auscultation bilaterally and wheezes (end expiratory) expiratory wheezes and throughout Cardio: Rate: regular rate Heart sounds: S1 normal heart sound present and S2 normal heart sound present Skin: Rashes: no rashes Wounds: no wounds Neuro: General: patient oriented x3, tone normal and no meningeal signs Gait exam (Neuro): Normal gait present Extrem: General: Yes normal to inspection and Yes no pedal edema Course Course Course Narrative: -1332--no leukocytosis. Labs otherwise unremarkable. COVID-19 and influenza negative. -CXR unremarkable -1426-- On re-evaluation pt reports sx improvement, however still continued exp wheeze noted > will give additional Duoneb and reassess -on re-evaluation lungs CTA. Patient satting 97% on RA. Patient reports symptomatic improvement, discussed worrisome signs and symptoms and strict return precautions and need close follow-up with PCP. She verbalized understanding & feels safe for discharge home MDM - URI/Sore Throat MDM Narrative Medical decision making narrative: 26-year-old female with past medical history of asthma presenting to the ED complaining of productive cough, wheezing, and chest tightness at night x3 days S/P cleaning air conditioner. On exam vital signs stable, and 80/nontoxic- appearing, talking in complete sentences, mild end expiratory wheeze noted throughout. No respiratory distress. Concern for asthma exacerbation versus viral illness including COVID-19 / influenza. Rule out pneumonia. Symptoms atypical for ACS/PE plan: Labs, CXR, COVID-19/influenza testing, DuoNeb, p.o. prednisone, anticipated DC home Differential Diagnosis Differential diagnosis: Likely upper respiratory infection, viral infection, bronchitis and influenza Medical Records Attestation: I reviewed the patient's medical records. Lab Data Attestation: I reviewed the patient's lab results. Result diagrams: 03/31/22 11:31 03/31/22 11:31 Labs: Lab Results 03/31/22 03/31/22 03/31/22 Range/Units 11:31 11:31 11:31 WBC 10.1 (4.8-10.8) X10*3/uL RBC 4.40 (4.20-5.50) X10*6/uL Hgb 13.1 (12.0-16.0) g/dl Hct 39.9 (37.0-47.0) % MCV 90.7 (80.0-98.0) fL MCH 29.8 (27.0-33.0) pg MCHC 32.8 (31.0-35.0) g/dl RDW 12.8 (11.0-16.0) % Plt Count 338 (160-400) X10*3/uL MPV 9.6 (9.4-12.3) fL Immature Gran % (Auto) 0.2 (0.0-0.4) % Neut % (Auto) 57.7 (45-73) % Lymph % (Auto) 27.2 (20-40) % [place] % (Auto) 9.1 (2-11) % Eos % (Auto) 5.4 H (0-4) % Baso % (Auto) 0.4 (0-2) % Lymph # (Auto) 2.7 (1.2-4.9) X10*3/uL [place] # (Auto) 0.9 (0.1-1.2) X10*3/uL Eos # (Auto) 0.5 H (0.0-0.4) X10*3/uL Baso # (Auto) 0.0 (0.0-0.2) X10*3/uL Abs Immat Gran (auto) 0.02 (0.00-0.03) X10*3/uL Absolute Neuts (auto) 5.8 (2.0-8.3) x10*3/uL Absolute Nucleated RBC 0.000 (0.0-0.012) X10*3/uL Nucleated RBC % (auto) 0.0 (0.0-0.2) /100WBC Sodium 138 (135-145) mmol/L Potassium 3.6 (3.3-5.1) mmol/L Chloride 106 (96-108) mmol/L Carbon Dioxide 26 (22-29) mmol/L Anion Gap 10 L (12-20) BUN 7 L (9-16) mg/dL Creatinine 0.76 (0.5-1.4) mg/dL Estim Creat Clear Calc 89.3 Estimated GFR > 60 Random Glucose 85 (60-115) mg/dL Calcium 9.4 (8.4-10.2) mg/dL Total Bilirubin 0.6 (0.0-1.0) mg/dL AST 16 (5-31) U/L ALT 21 (0-31) U/L Alkaline Phosphatase 72 (39-117) U/L Total Protein 7.2 (6.5-8.0) g/dL Albumin 4.3 (3.5-5.0) g/dL COVID-19 (EDMUND) (Negative) COVID-19 Clin Com Influenza Type A (MOIZ) Negative (Negative) Influenza Type B (OMIZ) Negative (Negative) Influenza A & B Note See Note 03/31/22 Range/Units 11:31 WBC (4.8-10.8) X10*3/uL RBC (4.20-5.50) X10*6/uL Hgb (12.0-16.0) g/dl Hct (37.0-47.0) % MCV (80.0-98.0) fL MCH (27.0-33.0) pg MCHC (31.0-35.0) g/dl RDW (11.0-16.0) % Plt Count (160-400) X10*3/uL MPV (9.4-12.3) fL Immature Gran % (Auto) (0.0-0.4) % Neut % (Auto) (45-73) % Lymph % (Auto) (20-40) % [place] % (Auto) (2-11) % Eos % (Auto) (0-4) % Baso % (Auto) (0-2) % Lymph # (Auto) (1.2-4.9) X10*3/uL [place] # (Auto) (0.1-1.2) X10*3/uL Eos # (Auto) (0.0-0.4) X10*3/uL Baso # (Auto) (0.0-0.2) X10*3/uL Abs Immat Gran (auto) (0.00-0.03) X10*3/uL Absolute Neuts (auto) (2.0-8.3) x10*3/uL Absolute Nucleated RBC (0.0-0.012) X10*3/uL Nucleated RBC % (auto) (0.0-0.2) /100WBC Sodium (135-145) mmol/L Potassium (3.3-5.1) mmol/L Chloride (96-108) mmol/L Carbon Dioxide (22-29) mmol/L Anion Gap (12-20) BUN (9-16) mg/dL Creatinine (0.5-1.4) mg/dL Estim Creat Clear Calc Estimated GFR Random Glucose (60-115) mg/dL Calcium (8.4-10.2) mg/dL Total Bilirubin (0.0-1.0) mg/dL AST (5-31) U/L ALT (0-31) U/L Alkaline Phosphatase (39-117) U/L Total Protein (6.5-8.0) g/dL Albumin (3.5-5.0) g/dL COVID-19 (EDMUND) Negative (Negative) COVID-19 Clin Com See Note Influenza Type A (MOIZ) (Negative) Influenza Type B (MOIZ) (Negative) Influenza A & B Note Discharge Plan Discharge Clinical Impression: Asthma with acute exacerbation Patient Disposition: Home, Self-Care Instructions: Asthma (DC) Additional Instructions: Your blood work and chest x-ray were reassuring today in the ED. you tested negative for COVID-19 and the flu. Continue to use inhalers and neb machine. In addition take prednisone. If symptoms persist or worsen please return to the emergency department. Please follow-up with her doctor Prescriptions: New prednisone 20 mg tablet 40 mg PO DAILY 5 Days Qty: 10 0RF albuterol sulfate 90 mcg/actuation HFA aerosol inhaler 2 puff inhalation Q4-6H PRN (Reason: shortness of breath or wheezing) Qty: 6.7 0RF albuterol sulfate 2.5 mg/0.5 mL solution for nebulization 5 mg inhalation Q4H PRN (Reason: shortness of breath or wheezing) Qty: 30 0RF No Action doxylamine-pyridoxine (vit B6) 20-20 mg tablet,IR,delayed rel,biphasic 1 tab PO BID PRN (Reason: nausea and vomiting) Qty: 30 1RF promethazine 25 mg tablet 25 mg PO TID PRN (Reason: nausea and vomiting) Qty: 30 0RF cyclobenzaprine 10 mg tablet 10 mg PO TID PRN (Reason: muscle spasm) Qty: 20 0RF Referrals: Physician,Unknown J [Primary Care Provider] - 3 days
[2022-03-31] MEDS: predniSONE 20 MG TABLET 40 MG PO (13:44)
[2022-03-31] MEDS: Albuterol/Iprat 2.5/0.5MG 3 ML AMPUL.NEB INHALE ×2 (13:47→14:53)
[2022-03-31 13:49] VITALS: PULSE 60; RESP 20; O2SAT 99
[2022-03-31 14:54] VITALS: PULSE 67; O2SAT 100
== END 2022-03-31 16:42 | disposition home or self-care (01) ==
PROVIDERS: Emergency Provider Emergency Medicine
DX: J45.901 Unspecified asthma with (acute) exacerbation (principal); R05.9 Cough, unspecified; Z20.822 Contact with and (suspected) exposure to COVID-19; Z79.899 Other long term (current) drug therapy
CPT/HCPCS: 71045; 80053; 85025; 87502; 87635; 94640; 99283

== ENCOUNTER 2022-11-23 17:45 | Outpatient (REF) | payer OTHER, SELFPAY ==
[2022-11-24 13:30] LABS: BV Int Neg Control Negative (Negative); BV Int Pos Control Positive (Positive)
== END 2022-11-23 17:46 | disposition home or self-care (01) ==
LOC: HO.LNP 17:45
PROVIDERS: Visit Provider Internal Medicine
DX: N76.0 Acute vaginitis (principal); B96.89 Other specified bacterial agents as the cause of diseases classified elsewhere
CPT/HCPCS: 87480; 87510; 87660

== ENCOUNTER 2023-05-24 14:45 | Outpatient (AMB) | payer OTHER, SELFPAY ==
--- OUTSIDE RECORDS SUMMARY | 2023-05-24 14:46 | XMS_ITS | Continuity of Care Document ---
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/pharmacy #[id number], Partial fill upon patient request if the prescription is for a schedule II opioid drug., 152, cm, 12/26... Start Date: 12/27/20 Status: Ordered famotidine 20 mg oral tablet 1, tablet, By Mouth, Daily at bedtime, # 30 tablet, Refills 0, Tot. Refills 0, Maintenance, 04/09/21 16:40:00 EDT, Route to Pharmacy Electronically, [id number], 152, cm, 12/26/20 13:14:00 EST, Height, 53.6, kg, 12/26/20 16:46:00 EST, Dry Weight Start Date: 04/09/21 Status: Ordered Vitamin B6 25 mg oral tablet See Instructions, 1 tablet By Mouth up to 3 times Daily for nausea, # 90 tablet, 1 Refills, Maintenance, 12/27/20 2:30:00 EST, [facility][id number], Partial fill upon patient request if the prescription is for a schedule II opioid drug., 152, cm, ... Start Date: 12/27/20 Status: Ordered Problem List Condition Confirmation Course Effective Dates Status Health [facility] Informant Asthma Confirmed Active Social History Social History Type Response Smoking Status Never (less than 100 in lifetime) entered on: 12/26/20 Sex Patient Care team information Care Team Personnel Name: Name Billy FARRAR Position: [facility] Outreach Member Role: PCP Address: Address: [address] [place] [address]- Care Team Related Persons Name: SERENE ZHOU Address: home [address] [place] [address]
--- NOTE | 2023-05-24 14:50 | MHC.OFFWIV ---
Intake Vital Signs 05/24/23 14:51 Height 5 ft BP 112/70 Blood Pressure Location Lt brachial Position Sitting Pulse 74 Pulse Source Pulse Oximeter Temp 97 F Temp Source Temporal Artery Scan Pulse Oximetry (%) 99 Oxygen Delivery Method Room Air Intake Visit Reasons: EP vaginal infection? Patient Tobacco Use Status: Never used Tobacco Allergies Seasonal Allergies Allergy (Intermediate, Verified 05/24/23 14:51) Sneezing Do you need a note to return to daycare/school/sports/work: No HPI HPI Comments History of Present Illness Details This is a 27-year-old female with history of recurrent bacterial vaginosis who presents with vaginal odor. Patient states she has not noticed any vaginal discharge or vaginal irritation/pruritus but she has noticed a foul odor. She denies any dysuria, hematuria, or urinary frequency/urgency. She denies any fevers/chills. 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 Current occupational exposures/hazards: No Cognitive needs: Yes Hearing needs: No Vision needs: Yes Review of Systems Const All systems reviewed & are unremarkable except as noted in HPI and below Reports no additional complaints Eyes Reports no additional complaints ENT Reports no additional complaints Card Reports no additional complaints Resp Reports no additional complaints GI Reports no additional complaints Reports as per HPI Musc Reports no additional complaints Skin/Breast Reports system reviewed and no additional complaints, except as documented Neuro Reports no additional complaints Psych Reports no additional complaints Endo Reports no additional complaints Yaw/Lymph Reports no additional complaints Aller/Immun Reports no additional complaints Physical Exam Vital Signs: Last Vital Signs Temp 97 F 05/24/23 14:51 Pulse 74 05/24/23 14:51 BP 112/70 05/24/23 14:51 Pulse Ox 99 05/24/23 14:51 Oxygen Delivery Method Room Air 05/24/23 14:51 Const General: cooperative, healthy appearing, comfortable, no acute distress and well developed Orientation/consciousness: patient oriented x3 HEENT Head: Yes normal to inspection Ears: hearing grossly normal bilaterally General nose exam: Normal external nose present Face and sinus: Yes normal facial exam Eyes General: appearance normal, both eyes and all related structures Pupils: Equal, round and reactive pupils present EOM: EOMs intact bilaterally Resp Effort & Inspection: normal respiratory effort and able to speak in complete sentences Cardio Rate: regular rate Skin General skin exam: no rashes or lesions noted Neuro General: patient oriented x3 Cranial nerves: Yes CN's II-XII intact bilaterally and Yes Equal, round and reactive pupils present Motor exam (neuro): 5/5 motor strength present throughout Assessment & Plan Assessment & Plan (1) Bacterial vaginosis: Code(s): N76.0 - Acute vaginitis; B96.89 - Other specified bacterial agents as the cause of diseases classified elsewhere Plan This is a 27-year-old female presenting to the office with foul odor of her vagina. Patient started on metronidazole gel daily x5 days for empiric treatment of bacterial vaginosis. Follow-up BV panel as well as chlamydia/gonorrhea panel. Orders: Orders Bacterial Vaginosis Panel Today N89.8 - Other specified noninflammatory disorders of vagina CT NG by PCR Today N89.8 - Other specified noninflammatory disorders of vagina Medications: New metronidazole 0.75%(37.5mg/5gram) 1 appful vaginal DAILY 70 grams 0RF 5 days Coding Level of Care Code Est Pt Level 3 (15865) Diagnoses Bacterial vaginosis N76.0; B96.89
[2023-05-24 14:51] VITALS: BP 112/70; PULSE 74; TEMP 36.1; O2SAT 99
== END 2023-05-24 16:12 | disposition home or self-care (01) ==
PROVIDERS: PCP Hospitalist; Visit Provider Physician Assistant Medical
DX: N76.0 Acute vaginitis (principal); B96.89 Other specified bacterial agents as the cause of diseases classified elsewhere
CPT/HCPCS: 99213

== ENCOUNTER 2023-05-24 14:57 | Outpatient (REF) | payer OTHER, SELFPAY ==
[2023-05-25 07:23] LABS: CT PCR NOT DETECTED (Not Detect.); NG PCR NOT DETECTED (Not Detect.)
[2023-05-25 11:49] LABS: BV Int Neg Control Negative (Negative); BV Int Pos Control Positive (Positive)
== END 2023-05-24 14:58 | disposition home or self-care (01) ==
LOC: HO.LAB 14:57
PROVIDERS: Visit Provider Physician Assistant Medical
DX: N89.8 Other specified noninflammatory disorders of vagina (principal)
CPT/HCPCS: 0353U; 87480; 87510; 87660

== ENCOUNTER 2023-09-13 16:16 | Outpatient (AMB) | payer OTHER, SELFPAY ==
[2023-09-13 16:19] VITALS: BP 100/60; PULSE 61; RESP 13; O2SAT 98; BMI 22.3
--- NOTE | 2023-09-13 16:19 | A.OFFPC_ITS ---
Vital Signs 09/13/23 16:19 Height 5 ft Weight 114 lb BMI 22.3 BP 100/60 Blood Pressure Location Rt brachial Position Sitting Respiration 13 Pulse 61 Pulse Source Pulse Oximeter Pulse Oximetry (%) 98 Oxygen Delivery Method Room Air Intake Visit Reasons: Transfer of Care from [facility] Intake Note: Patient is here to transfer care from Gita Morrow DNP to Christine Trivedi DNP. Patient would like to discuss monoxadil oral for alopecia. Patient was seeing [facility] and they informed her she would need a new referral. Patient reports she has a history of bacterial vaginosis and she is usually prescribed a gel and she would like to know if her provider will send the prescription to the pharmacy. Patient would like to renew her albuterol inhaler prescription. 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 Accompanied by: Self / Same As Patient Allergies Seasonal Allergies Allergy (Intermediate, Verified 09/13/23 16:31) Sneezing Medication List - Last Reconciled 09/13/23 by Christine Trivedi CNP albuterol sulfate 90 mcg/actuation 2 puffs inhalation Q4-6H PRN albuterol sulfate 2.5 mg (3 mL) inhalation QID PRN fluoxetine 20 mg PO DAILY 30 days metronidazole 0.75%(37.5mg/5gram) 1 appful vaginal DAILY 5 days Tobacco use date assessed: 12/20/22 HPI HPI Comments History of Present Illness Details 27-year-old female presents for transfer of care She has past medical history significant for asthma, bipolar 1 disorder, anxiety, depression, and PTSD She is on fluoxetine and albuterol and admits to taking her medications as prescribed. She reports controlled anxiety and depression symptoms She notes that she is on a wait list for therapist She reports history of a bald spot on head that resolved after she missed her appointment from [facility]; she requests a referral for a follow-up She offers no complaints and denies acute symptoms. 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 1. Little interest or pleasure in doing things: several days 2. Feeling down, depressed, or hopeless: several days 3. Trouble falling or staying asleep, or sleeping too much: more than half the days 4. Feeling tired or having little energy: several days 5. Poor appetite or overeating: nearly every day 6. Feeling bad about yourself - or that you are a failure or have let yourself or your family down: not at all 7. Trouble concentrating on things, such as reading the newspaper or watching television: more than half the days 8. Moving or speaking so slowly that other people could have noticed. Or the opposite - being so fidgety or restless that you have been moving around a lot more than usual: several days 9. Thoughts that you would be better off or of hurting yourself in some way: not at all Total score: 11 Depression Screening Interpretation: Positive Depression Screening Follow-up: Existing condition and In treatment Depression Screening Done: Yes 37955 - PHQ-9 Billing: Yes Source: Developed by Drs. Anthony Nichole, Arleen Do, Vic Patel and colleagues, with an educational jeri from [employer]. Thrive Questionnaire Date Thrive assessed: 09/13/23 I am a: Patient What is your living situation today?: I have a steady place to live Within the past 12 months, did the food you bought not last and you didn't have the money to get more?: Never true Within the past 12 months, did you worry whether your food would run out before you got money to buy more?: Never true Do you have trouble paying for medicines?: No Do you have trouble getting transportation to medical appointments?: No Do you have trouble paying your heating and electricity bill?: No Do you have trouble taking care of your child, family member or friend?: No Do you have trouble with day-to-day activities such as bathing, preparing meals, shopping, managing finances, etc.?: No Are you currently unemployed and looking for a job?: No Are you interested in more education?: No Please select the resources that you would like help with: None Currently or been in a relationship where the following occur: no concerns reported AUDIT C Alcohol Use Questionnaire (AUDIT-C) 1. How often do you have a drink containing alcohol?: Never 3. How often do you have six or more drinks on one occasion?: Never Total Score: 0 TEMI-7 AMB Questionnaire TEMI-7 Date TEMI - 7 assessed: 09/13/23 Feeling nervous, anxious, or on edge: 0 = Not at all Not being able to stop or control worryin = Not at all Worrying too much about different things: 0 = Not at all Trouble relaxin = Several days Being so restless that it is hard to sit still: 0 = Not at all Becoming easily annoyed or irritable: 1 = Several days Feeling afraid as if something awful might happen: 0 = Not at all Total TEMI-7 score (0-4 normal; 5-9 mild; 10-14 moderate; 15-21 severe): 2 Source: Developed by Drs. Anthony Nichole, Arleen Do, Vic Patel and colleagues, with an educational jeri from [employer]. TEMI-7 Assessment Billing TEMI-7 Assessment Tool: TEMI-7 Assessment 59580 ACT Questionnaire In the past 4 weeks, how much of the time did your asthma keep you from getting as much done at work, school or at home?: Some of the time During the past 4 weeks, how often have you had shortness of breath?: Once a day During the past 4 weeks, how often did your asthma symptoms wake you up at night or earlier than usual in the morning?: 2-3 nights a week During the past 4 weeks, how often have you had to use your rescue inhaler or nebulizer medication?: 1-2 times a week How would you rate your asthma control during the past 4 weeks?: Somewhat controlled ACT Interpretation: Positive Score: 12 Review of Systems Const Details: Const Denies chills, Denies fatigue, Denies fever(s), Denies headache(s) and Denies weakness ENT Denies dizziness and Denies headache(s) Card Denies chest pain, Denies lightheadedness, Denies dyspnea and Denies other (Palpitations) Resp Denies cough, Denies dyspnea, Denies wheezing and Denies other ( shortness of breath) GI Denies abdominal pain, Denies melena, Denies hematochezia, Denies change in bowel habits, Denies dyspepsia and Denies nausea Denies hematuria and Denies dysuria Musc Denies abnormal gait, Denies myalgias, Denies arthralgias, Denies numbness and Denies tingling Skin/Breast Denies rash, Denies unusual bruising and Denies wounds Neuro Denies abnormal gait, Denies dizziness, Denies headache(s), Denies memory loss, Denies numbness, Denies Sensory deficit (Neuro), Denies tingling and Denies weakness Psych Denies anxiety, Denies depression, Denies memory loss Endo Denies cold intolerance, Denies fatigue, Denies heat intolerance, Denies polydipsia and Denies polyuria Aller/Immun Denies wheezing Physical exam (Primary Care) Vital Signs: Last Vital Signs Pulse 61 09/13/23 16:19 Resp 13 09/13/23 16:19 BP 100/60 09/13/23 16:19 Pulse Ox 98 09/13/23 16:19 Oxygen Delivery Method Room Air 09/13/23 16:19 BMI result Body Mass Index 22.3 Tobacco/Smoking Status: Tobacco use Status Tobacco use date assessed 12/20/22 09/13/23 16:19 Patient Tobacco Use Status Never used Tobacco 09/13/23 16:19 e-Cigarette/Vaping Use Never Used 09/13/23 16:19 Depression Screening Interpretation: Positive Depression Screening Follow-up: Existing condition and In treatment Thrive Assessment: Date of Thrive Assessment Date Thrive assessed 04/24/23 09/13/23 16:19 Currently or been in a relationship where the following occur: no concerns reported Const Other: General: no acute distress and well developed Nutritional Appearance: well nourished Orientation/consciousness: patient oriented x3 HENMT Head: Yes normocephalic and Yes atraumatic Eyes General: appearance normal, both eyes and all related structures Pupils: Equal, round and reactive pupils present EOM: EOMs intact bilaterally Resp Effort & Inspection: normal respiratory effort Auscultation: clear to auscultation bilaterally Cardio Rate: regular rate Rhythm: regular rhythm Heart sounds: S1 normal heart sound present, S2 normal heart sound present, no gallops, no murmurs and no rubs GI Palpation (GI): No Abdominal aortic bruit present, Soft to palpation, nontender, No hepatosplenomegaly present and No Rebound tenderness present Auscultation: normal bowel sounds General: Yes no CVA tenderness Back/Spine/Pelvis Back: no CVA tenderness Cervical Spine: cervical ROM normal and No Cervical spine tenderness Thoracic/Lumbar Spine: thoraco-lumbar ROM normal, No pain with thoraco-lumbar ROM, No thoracic spinal tenderness and No lumbar spinal tenderness Extrem General: Yes normal to inspection, No edema and No calf tenderness Skin General: warm and dry. Normal skin color. Normal skin turgor Lesions: no lesions Rashes: no rashes Trauma: no lacerations or abrasions Wounds: no wounds Nails: normal Neuro General: patient oriented x3, gait normal and no focal neuro deficit Cranial nerves: Yes Equal, round and reactive pupils present Cognition (Neuro): normal cognition Gait exam (Neuro): Normal gait present Sensory Exam: No Sensory deficit (Neuro) Psych Appearance: grossly normal Affect: normal affect Attitude: cooperative Thought process: Normal thought process present Assessment and Plan Assessment & Plan (1) Anxiety: Code(s): F41.9 - Anxiety disorder, unspecified Plan: PHQ-9 score revealed moderate depression. TEMI-7 score is normal Continue to take fluoxetine as prescribed Routine exercise encouraged Follow-up in 1 month for complete physical exam. Encouraged to perform previously scheduled fasting blood work done before her next visit. Advised to fast for 10-12 hours, may drink water only, before getting blood work done. Will also check urinalysis Return sooner with new or worsening symptoms Verbalized understanding and agreed with treatment plan. (2) Depression: Code(s): F32.A - Depression, unspecified Plan: As above (3) Bipolar 1 disorder, depressed: Code(s): F31.9 - Bipolar disorder, unspecified Plan: As above (4) PTSD (post-traumatic stress disorder): Code(s): F43.10 - Post-traumatic stress disorder, unspecified Plan: As above (5) Asthma: Code(s): J45.909 - Unspecified asthma, uncomplicated Plan: ACT score is 12 and indicates poorly control asthma Continue with current treatment regimen Follow-up with worsening or new symptoms Verbalized understanding and agreed with treatment plan. (6) Alopecia: Code(s): L65.9 - Nonscarring hair loss, unspecified Plan: She reports history of a bald spot on head that resolved after she missed her appointment from [facility]; she requests a referral for a follow-up Normal hair volume and distribution. No alopecia noted Referred to dermatology as requested Orders: Orders UA CC w/rflx Micro + Cult Today Z00.00 - Encounter for general adult medical examination without abnormal findings Referrals Dermatology Referral L65.9 - Nonscarring hair loss, unspecified Medications: Changed From albuterol sulfate 90 mcg/actuation 2 puffs inhalation Q4-6H PRN 6.7 grams 0RF shortness of breath or wheezing To albuterol sulfate 90 mcg/actuation 2 puffs inhalation Q4-6H 30 days PRN 8.5 grams 3RF shortness of breath or wheezing Refilled albuterol sulfate 2.5 mg (3 mL) inhalation QID PRN 90 mL 3RF shortness of breath or wheezing Coding Level of Care Code Est Pt Level 4 (25846) Diagnoses Anxiety F41.9 Depression F32.A Bipolar 1 disorder, depressed F31.9 PTSD (post-traumatic stress disorder) F43.10 Asthma J45.909 Alopecia L65.9 Additional Codes TEMI-7 Assessment Billing - TEMI-7 Assessment Tool: TEMI-7 Assessment 49246 ([id number])
== END 2023-09-13 16:53 | disposition home or self-care (01) ==
PROVIDERS: PCP Hospitalist; Visit Provider Nurse Practitioner Family
DX: F41.9 Anxiety disorder, unspecified (principal); F31.9 Bipolar disorder, unspecified; F43.10 Post-traumatic stress disorder, unspecified; J45.909 Unspecified asthma, uncomplicated; L65.9 Nonscarring hair loss, unspecified
CPT/HCPCS: 96127; 99214

== ENCOUNTER 2023-10-01 13:00 | Outpatient (AMB) | payer OTHER, SELFPAY ==
[2023-10-01 13:23] VITALS: BP 120/70; PULSE 83; TEMP 36.2; O2SAT 99; BMI 22.7
--- NOTE | 2023-10-01 13:23 | AM.OFFWIN_ITS ---
Intake Vital Signs 10/01/23 13:23 Height 5 ft Weight 116 lb BMI 22.7 BP 120/70 Blood Pressure Location Lt brachial Position Sitting Pulse 83 Pulse Source Pulse Oximeter Temp 97.2 F Pulse Oximetry (%) 99 Oxygen Delivery Method Room Air Intake Visit Reasons: EST/lip issues (lobby) Intake Note: pt is here today for lip issues. started yesterday top lip Patient Tobacco Use Status: Never used Tobacco Allergies Seasonal Allergies Allergy (Intermediate, Verified 10/01/23 13:42) Sneezing Do you need a note to return to daycare/school/sports/work: No HPI EST/lip issues (lobby) HPI Details 28-year-old female presents to the [facility] for a sick visit. Patient feels she has a swelling on her lips. No irritation. Noticed it on . She would also like to have testing done for bacterial vaginosis. 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 No erythema around the mouth. Assessment & Plan Assessment & Plan (1) Screening examination for sexually transmitted disease: Code(s): Z11.3 - Encounter for screening for infections with a predominantly sexual mode of transmission Plan: Testing for BV done. Will call with results. (2) Rash: Code(s): R21 - Rash and other nonspecific skin eruption Plan: Reassurance. No medications needed. Coding Level of Care Code Est Pt Level 3 (55118) Diagnoses Screening examination for sexually transmitted disease Z11.3 Rash R21
== END 2023-10-01 14:40 | disposition home or self-care (01) ==
PROVIDERS: PCP Hospitalist; Visit Provider Internal Medicine
DX: Z11.3 Encounter for screening for infections with a predominantly sexual mode of transmission (principal); R21 Rash and other nonspecific skin eruption
CPT/HCPCS: 99213

== ENCOUNTER 2023-10-01 14:49 | Outpatient (REF) | payer OTHER, SELFPAY ==
[2023-10-02 13:21] LABS: BV Int Neg Control Negative (Negative); BV Int Pos Control Positive (Positive)
== END 2023-10-01 14:50 | disposition home or self-care (01) ==
LOC: HO.LAB 14:49
PROVIDERS: Visit Provider Internal Medicine
DX: N76.0 Acute vaginitis (principal); B96.89 Other specified bacterial agents as the cause of diseases classified elsewhere
CPT/HCPCS: 87480; 87510; 87660

== ENCOUNTER 2024-03-25 13:29 | Outpatient (AMB) | payer OTHER, SELFPAY ==
[2024-03-25 13:31] VITALS: BP 102/62; PULSE 76; TEMP 36.9; O2SAT 99
--- NOTE | 2024-03-25 13:31 | AM.OFFWIN_ITS ---
Intake Vital Signs 03/25/24 13:31 Height 5 ft BP 102/62 Blood Pressure Location Rt brachial Position Sitting Pulse 76 Pulse Source Pulse Oximeter Temp 98.4 F Temp Source Oral Pulse Oximetry (%) 99 Oxygen Delivery Method Room Air Intake Visit Reasons: EP Yeast Infection Intake Note: pt is here for yeast infection or possible BV Patient Tobacco Use Status: Never used Tobacco Allergies Seasonal Allergies Allergy (Intermediate, Verified 03/25/24 13:32) Sneezing Do you need a note to return to daycare/school/sports/work: No PFSH Medical History Anxiety Asthma Bipolar 1 disorder, depressed Depression Family History Mother Thyroid condition Maternal Grandmother Colon cancer Asthma Other No family history of mental disorder Social History Household Members: Family Housing: Apartment Alcohol intake: never Patient Tobacco Use Status: Never used Tobacco e-Cigarette/Vaping Use: Never Used Substance Use Type: Marijuana service: No Current occupational status: employed 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 Current occupational exposures/hazards: No Cognitive needs: Yes Hearing needs: No Vision needs: Yes Physical Exam Vital Signs: Last Vital Signs Temp 98.4 F 03/25/24 13:31 Pulse 76 03/25/24 13:31 BP 102/62 03/25/24 13:31 Pulse Ox 99 03/25/24 13:31 Oxygen Delivery Method Room Air 03/25/24 13:31 Const General: comfortable and no acute distress Nutritional Appearance: thin Orientation/consciousness: patient oriented x3 GI Palpation (GI): Soft to palpation, not firm, nontender, no guarding, not rigid, No hepatosplenomegaly present, no hernias and no masses General: Yes no CVA tenderness External Female Exam: normal external appearance, No external swelling, No lesion and No urethral discharge Speculum Exam - Vagina: normal appearance of the vagina, abnormal vaginal discharge malodorous and frothy, erythematous and No vaginal bleeding Speculum Exam - Cervix: normal palpation, Cervical os open, Abnormal cervical discharge present white and malodorous and nontender Bimanual exam- vagina & uterus: normal palpation and No Cervical tenderness present Bimanual Exam- Adnexa, other: no masses OB/external & speculum: Cervical os open; No vaginal bleeding Back/Spine/Pelvis Back: no CVA tenderness Neuro General: patient oriented x3 Assessment & Plan Assessment & Plan (1) Vaginitis and vulvovaginitis: Code(s): N76.0 - Acute vaginitis Plan: - Sent Vaginal swab roberson BV/Yeast and TM - Void before and after intercourse - Clean front to back - Pure Latex condoms - Avoid tight clothing. Orders: Orders Bacterial Vaginosis Panel Today N76.0 - Acute vaginitis Medications: New terconazole 1 supp vaginal BEDTIME 3 ea 0RF 3 days N76.0 - Acute vaginitis fluconazole TAKE 1 TABLET TODAY, MAY REPEAT DOSE IN 72 HOURS. 150 mg PO DAILY 2 tabs 1RF N76.0 - Acute vaginitis Coding Level of Care Code Est Pt Level 4 (87806) Diagnoses Vaginitis and vulvovaginitis N76.0 Time Spent (min) 20
== END 2024-03-25 14:38 | disposition home or self-care (01) ==
PROVIDERS: PCP Hospitalist; Visit Provider Nurse Practitioner Family
DX: N76.0 Acute vaginitis (principal)
CPT/HCPCS: 99214

== ENCOUNTER 2024-03-25 13:59 | Outpatient (REF) | payer OTHER, SELFPAY ==
[2024-03-25 17:51] LABS: Bacterial Vaginosis PCR POSITIVE (Negative); Candida Group PCR NOT DETECTED (Not Detect); Candida glab krusei PCR NOT DETECTED (Not Detect); Trichomonas vaginalis PCR NOT DETECTED (Not Detect)
== END 2024-03-25 14:00 | disposition home or self-care (01) ==
LOC: HO.LAB 13:59
PROVIDERS: Visit Provider Nurse Practitioner Family
DX: N76.0 Acute vaginitis (principal)
CPT/HCPCS: 0352U

== ENCOUNTER 2024-05-22 17:38 | Outpatient (AMB) | payer OTHER, SELFPAY ==
[2024-05-22 17:39] VITALS: BP 100/62; PULSE 99; O2SAT 95; BMI 21.7
--- NOTE | 2024-05-22 17:39 | A.OFFPC_ITS ---
Vital Signs 05/22/24 17:39 Height 5 ft Weight 111 lb 2 oz BMI 21.7 BP 100/62 Blood Pressure Location Lt brachial Position Sitting Pulse 99 Pulse Source Pulse Oximeter Pulse Oximetry (%) 95 Oxygen Delivery Method Room Air Intake Visit Reasons: Meds follow up Intake Note: Patient is here to follow up on anti depressant med Allergies Seasonal Allergies Allergy (Intermediate, Verified 05/22/24 17:50) Sneezing Medication List - Last Reconciled 05/22/24 by Christine Trivedi CNP albuterol sulfate 90 mcg/actuation 2 puffs inhalation Q4-6H PRN 30 days albuterol sulfate 2.5 mg (3 mL) inhalation QID PRN fluoxetine 20 mg PO DAILY 30 days Tobacco use date assessed: 05/22/24 Dental Screening Dental Screen Date: 04/24/23 Did you have a dental visit in the last 12 months?: No Did you have a dental problem in the last 6 months where you did not have access to dental care?: No Was dental information given to patient?: Patient has dentist HPI HPI Comments History of Present Illness Details 28-year-old female presents for anxiety, depression, bipolar 1 disorder, and PTSD follow-up She admits to taking fluoxetine as prescribed without adverse reactions She reports controlled symptoms on current treatment regimen She notes that she has been doing therapy twice weekly with counseling. She does not see a psychiatrist even though she was given the option. She prefers that her PCP continue to manage her psychotropic medications She states that she has been eating healthy, sleeping well, and exercising routinely She offers no complaints and denies acute symptoms at this time [facility] Medical History Anxiety Asthma Bipolar 1 disorder, depressed Depression Family History Mother Thyroid condition Maternal Grandmother Colon cancer Asthma Other No family history of mental disorder Social History Household Members: Family Housing: Apartment Alcohol intake: never Patient Tobacco Use Status: Never used Tobacco e-Cigarette/Vaping Use: Never Used Substance Use Type: Marijuana service: No Current occupational status: employed 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 1. Little interest or pleasure in doing things: not at all 2. Feeling down, depressed, or hopeless: not at all 3. Trouble falling or staying asleep, or sleeping too much: not at all 4. Feeling tired or having little energy: not at all 5. Poor appetite or overeating: not at all 6. Feeling bad about yourself - or that you are a failure or have let yourself or your family down: not at all 7. Trouble concentrating on things, such as reading the newspaper or watching television: not at all 8. Moving or speaking so slowly that other people could have noticed. Or the opposite - being so fidgety or restless that you have been moving around a lot more than usual: not at all 9. Thoughts that you would be better off or of hurting yourself in some way: not at all Total score: 0 Depression Screening Interpretation: Negative Depression Screening Done: Yes Source: Developed by Drs. Anthony Nichole, Arleen Do, Vic Patel and colleagues, with an educational jeri from [employer]. Thrive Questionnaire Date Thrive assessed: 09/13/23 TEMI-7 AMB Questionnaire TEMI-7 Date TEMI - 7 assessed: 05/22/24 Feeling nervous, anxious, or on edge: 0 = Not at all Not being able to stop or control worryin = Several days Worrying too much about different things: 1 = Several days Trouble relaxin = Not at all Being so restless that it is hard to sit still: 0 = Not at all Becoming easily annoyed or irritable: 0 = Not at all Feeling afraid as if something awful might happen: 0 = Not at all Total TEMI-7 score (0-4 normal; 5-9 mild; 10-14 moderate; 15-21 severe): 2 Source: Developed by Drs. Anthony Nichole, Arleen Do, Vic Patel and colleagues, with an educational jeri from [employer]. Review of Systems Const Details: Const Denies chills, Denies fatigue, Denies fever(s), Denies headache(s) and Denies weakness ENT Denies dizziness and Denies headache(s) Card Denies chest pain, Denies lightheadedness, Denies dyspnea and Denies other (Palpitations) Resp Denies cough, Denies dyspnea, Denies wheezing and Denies other ( shortness of breath) GI Denies abdominal pain, Denies melena, Denies hematochezia, Denies change in bowel habits, Denies dyspepsia and Denies nausea Denies hematuria and Denies dysuria Musc Denies abnormal gait, Denies myalgias, Denies arthralgias, Denies numbness and Denies tingling Skin/Breast Denies rash, Denies unusual bruising and Denies wounds Neuro Denies abnormal gait, Denies dizziness, Denies headache(s), Denies memory loss, Denies numbness, Denies Sensory deficit (Neuro), Denies tingling and Denies wea kness Psych Denies anxiety, Denies depression, Denies memory loss Endo Denies cold intolerance, Denies fatigue, Denies heat intolerance, Denies polydi psia and Denies polyuria Aller/Immun Denies wheezing Physical exam (Primary Care) BMI result Body Mass Index 21.7 Tobacco/Smoking Status: Tobacco use Status Tobacco use date assessed 12/20/22 09/13/23 16:19 Patient Tobacco Use Status Never used Tobacco 03/25/24 13:32 e-Cigarette/Vaping Use Never Used 09/13/23 16:19 Depression Screening Interpretation: Negative Thrive Assessment: Date of Thrive Assessment Date Thrive assessed 09/13/23 09/13/23 16:51 Const Other: General: no acute distress and well developed Nutritional Appearance: well nourished Orientation/consciousness: patient oriented x3 HENAR Head: Yes normocephalic and Yes atraumatic Eyes General: appearance normal, both eyes and all related structures Pupils: Equal, round and reactive pupils present EOM: EOMs intact bilaterally Resp Effort & Inspection: normal respiratory effort Auscultation: clear to auscultation bilaterally Cardio Rate: regular rate Rhythm: regular rhythm Heart sounds: S1 normal heart sound present, S2 normal heart sound present, no gallops, no murmurs and no rubs GI Palpation (GI): No Abdominal aortic bruit present, Soft to palpation, nontender, No hepatosplenomegaly present and No Rebound tenderness present Auscultation: normal bowel sounds General: Yes no CVA tenderness Back/Spine/Pelvis Back: no CVA tenderness Cervical Spine: cervical ROM normal and No Cervical spine tenderness Thoracic/Lumbar Spine: thoraco-lumbar ROM normal, No pain with thoraco-lumbar RO M, No thoracic spinal tenderness and No lumbar spinal tenderness Extrem General: Yes normal to inspection, No edema and No calf tenderness Skin General: warm and dry. Normal skin color. Normal skin turgor Neuro General: patient oriented x3, gait normal and no focal neuro deficit Cranial nerves: Yes Equal, round and reactive pupils present Cognition (Neuro): normal cognition Gait exam (Neuro): Normal gait present Sensory Exam: No Sensory deficit (Neuro) Psych Appearance: grossly normal Affect: normal affect Attitude: cooperative Thought process: Normal thought process present Assessment and Plan Assessment & Plan (1) Anxiety: Code(s): F41.9 - Anxiety disorder, unspecified Plan: Controlled symptoms on current treatment regimen PHQ-9 and TEMI-7 scores are normal Continue current treatment regimen Healthy diet and routine exercise encouraged Continue follow-up with therapist as planned Return in 1 month for an extended physical exam or sooner with symptoms or concerns Verbalized understanding and agreed with the treatment plan (2) Depression: Code(s): F32.A - Depression, unspecified Plan: As above (3) Bipolar 1 disorder, depressed: Code(s): F31.9 - Bipolar disorder, unspecified Plan: As above (4) PTSD (post-traumatic stress disorder): Code(s): F43.10 - Post-traumatic stress disorder, unspecified Plan: As above Orders: Orders Comprehensive [place]. Panel Fast Today Z00.00 - Encounter for general adult medical examination without abnormal findings Lipid Panel Today Z00.00 - Encounter for general adult medical examination without abnormal findings UA CC w/rflx Micro + Cult Today Z00.00 - Encounter for general adult medical examination without abnormal findings Complete Blood Count Auto Diff Today Z00.00 - Encounter for general adult medical examination without abnormal findings TSH reflex Free T4 Today Z00.00 - Encounter for general adult medical examination without abnormal findings Coding Level of Care Code New Pt Level 4 (06139) Complex EM visit Add On G2211 Diagnoses Anxiety F41.9 Depression F32.A Bipolar 1 disorder, depressed F31.9 PTSD (post-traumatic stress disorder) F43.10
== END 2024-05-22 18:00 | disposition home or self-care (01) ==
PROVIDERS: Visit Provider Nurse Practitioner Family
DX: F41.9 Anxiety disorder, unspecified (principal); F31.9 Bipolar disorder, unspecified; F32.A Depression, unspecified; F43.10 Post-traumatic stress disorder, unspecified
CPT/HCPCS: 99214; G2211

== ENCOUNTER 2024-11-10 10:04 | Outpatient (AMB) | payer OTHER, SELFPAY ==
--- NOTE | 2024-11-10 10:15 | MHC.PC.OV ---
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: No Is last menstrual period known: Yes Last menstrual period: 11/10/24 Post menopausal: No Patient : No Allergies Seasonal Allergies Allergy (Intermediate, Verified 11/10/24 10:55) Sneezing Medication List - Last Reconciled 11/10/24 by Christine Trivedi CNP albuterol sulfate 2.5 mg (3 mL) inhalation QID PRN albuterol sulfate 90 mcg/actuation (Ventolin HFA) 2 puffs inhalation Q4-6H PRN fluoxetine 20 mg PO DAILY 30 days Tobacco use date assessed: 11/10/24 Dental Screening Dental Screen Date: 11/10/24 Did you have a dental visit in the last 12 months?: Yes Did you have a dental problem in the last 6 months where you did not have access to dental care?: No Was dental information given to patient?: Patient has dentist HPI HPI Comments History of Present Illness Details 29-year-old female presents for an extended physical exam. She admits to taking her medications as prescribed without adverse reaction. She notes that her mood is generally stable. Acute issue(s) - None Past Medical History - Asthma, bipolar 1 disorder, anxiety, depression, and PTSD Social History - Nonsmoker. Does not vape. Does not drink alcohol. Smokes half a joint of cannabis twice weekly as sleep aid - Has been making healthy dietary choices. Exercises routinely. Generally sleep well Health maintenance - Last eye exam was in 2019. Referred to ophthalmology for routine eye care. - Last dental visit was over 6 months ago. She will follow up for routine cleaning - Last Tdap was in 10/2020 - Has not been vaccinated for the flu this season; declines vaccination - Last pap smear was over 3 years ago Specialists - Therapist at counseling weekly [facility] Medical History Anxiety Asthma Bipolar 1 disorder, depressed Depression Family History Mother Thyroid condition Maternal Grandmother Colon cancer Asthma Other No family history of mental disorder Social History Household Members: Family Housing: Apartment Alcohol intake: never Patient Tobacco Use Status: Never used Tobacco e-Cigarette/Vaping Use: Never Used Substance Use Type: Marijuana service: No Current occupational status: employed 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 1. Little interest or pleasure in doing things: not at all 2. Feeling down, depressed, or hopeless: not at all 3. Trouble falling or staying asleep, or sleeping too much: several days 4. Feeling tired or having little energy: several days 5. Poor appetite or overeating: several days 6. Feeling bad about yourself - or that you are a failure or have let yourself or your family down: not at all 7. Trouble concentrating on things, such as reading the newspaper or watching television: several days 8. Moving or speaking so slowly that other people could have noticed. Or the opposite - being so fidgety or restless that you have been moving around a lot more than usual: not at all 9. Thoughts that you would be better off or of hurting yourself in some way: not at all Total score: 4 Depression Screening Interpretation: Negative Depression Screening Done: Yes 00754 - PHQ-9 Billing: Yes Source: Developed by Drs. Anthony Nichole, Arleen Do, Vic Patel and colleagues, with an educational jeri from [employer]. Thrive Questionnaire Date Thrive assessed: 11/10/24 I am a: Patient What is your living situation today?: I have a steady place to live Within the past 12 months, did the food you bought not last and you didn't have the money to get more?: Never true Within the past 12 months, did you worry whether your food would run out before you got money to buy more?: Sometimes True Do you have trouble paying for medicines?: No Do you have trouble getting transportation to medical appointments?: No Do you have trouble paying your heating and electricity bill?: No Do you have trouble taking care of your child, family member or friend?: No Do you have trouble with day-to-day activities such as bathing, preparing meals, shopping, managing finances, etc.?: Yes Are you currently unemployed and looking for a job?: No Are you interested in more education?: No Please select the resources that you would like help with: None Currently or been in a relationship where the following occur: No concerns reported THRIVE Score: 1 AUDIT C Alcohol Use Questionnaire (AUDIT-C) 1. How often do you have a drink containing alcohol?: Never Total Score: 0 TEMI-7 AMB Questionnaire TEMI-7 Date TEMI - 7 assessed: 11/10/24 Feeling nervous, anxious, or on edge: 0 = Not at all Not being able to stop or control worryin = Not at all Worrying too much about different things: 0 = Not at all Trouble relaxin = Several days Being so restless that it is hard to sit still: 0 = Not at all Becoming easily annoyed or irritable: 0 = Not at all Feeling afraid as if something awful might happen: 0 = Not at all Total TEMI-7 score (0-4 normal; 5-9 mild; 10-14 moderate; 15-21 severe): 1 Source: Developed by Drs. Anthony Nichole, Arleen Do, Vic Patel and colleagues, with an educational jeri from [employer]. TEMI-7 Assessment Billing TEMI-7 Assessment Tool: TEMI-7 Assessment 92654 ACT Questionnaire In the past 4 weeks, how much of the time did your asthma keep you from getting as much done at work, school or at home?: A little of the time During the past 4 weeks, how often have you had shortness of breath?: 1-2 times a week During the past 4 weeks, how often did your asthma symptoms wake you up at night or earlier than usual in the morning?: Not at all During the past 4 weeks, how often have you had to use your rescue inhaler or nebulizer medication?: 1-2 times a week How would you rate your asthma control during the past 4 weeks?: Well controlled ACT Interpretation: Positive Score: 19 Review of Systems Const Details: Denies chills, Denies fatigue, Denies fever(s), Denies headache(s) and Denies weakness HEENT Denies change in vision, Denies dizziness, Denies headache(s), Denies hearing loss, Denies nasal congestion, Denies sinus pain, Denies sinus pressure and Denies sore throat Card Denies chest pain, Denies lightheadedness, Denies dyspnea and Denies other (palpitations) Resp Denies cough, Denies dyspnea and Denies wheezing GI Denies abdominal pain, Denies melena, Denies hematochezia, Denies change in bowel habits, Denies dyspepsia and Denies nausea Denies hematuria and Denies dysuria Musc Denies abnormal gait, Denies myalgias, Denies arthralgias, Denies numbness and Denies tingling Skin/Breast Denies rash, Denies unusual bruising and Denies wounds Neuro Denies abnormal gait, Denies dizziness, Denies headache(s), Denies memory loss, Denies numbness, Denies Sensory deficit (Neuro), Denies tingling and Denies weakness Psych Denies anxiety, Denies depression and Denies memory loss Endo Denies cold intolerance, Denies fatigue, Denies heat intolerance, Denies polydipsia and Denies polyuria Yaw/Lymph Denies easy bleeding and Denies easy bruising Aller/Immun Denies wheezing Physical exam (Primary Care) Vital Signs: Last Vital Signs Temp 97.4 F 11/10/24 10:22 Pulse 66 11/10/24 10:22 Resp 16 11/10/24 10:22 BP 103/66 11/10/24 10:22 Pulse Ox 100 11/10/24 10:22 BMI result Body Mass Index 24.1 Tobacco/Smoking Status: Tobacco use Status Tobacco use date assessed 11/10/24 11/10/24 10:25 Patient Tobacco Use Status Never used Tobacco 11/10/24 10:15 e-Cigarette/Vaping Use Never Used 11/10/24 10:15 PHQ-9: PHQ-9 Score PHQ-9: Total score 4 11/10/24 10:58 Depression Screening Interpretation: Negative Thrive Assessment: Date of Thrive Assessment Date Thrive assessed 11/10/24 11/10/24 10:25 Currently or been in a relationship where the following occur: No concerns reported Const Other: General: no acute distress, well developed, alert and awake Nutritional Appearance: well nourished Orientation/consciousness: patient oriented x3 [facility] Head: Yes normocephalic and Yes atraumatic Ears: hearing grossly normal bilaterally and TM's normal bilaterally General nose exam: Normal external nose present and Normal nares present Mouth: Normal oral and palatal mucosa present and moist mucous membranes Teeth and gingiva: dentition normal Throat: Yes oropharynx normal Eyes Pupils: Equal, round and reactive pupils present and Pupil accommodation reflex normal EOM: EOMs intact bilaterally Neck Neck: Yes normal visual inspection, Yes no lymphadenopathy and Yes trachea midline Thyroid: Thyroid normal Carotids: no bruits Lymphatic: no lymphadenopathy noted Chest Chest palpation & inspection: normal inspection of the chest Resp Effort & Inspection: normal respiratory effort Auscultation: clear to auscultation bilaterally Cardio Rate: regular rate Rhythm: regular rhythm Heart sounds: S1 normal heart sound present, S2 normal heart sound present, no gallops, no murmurs and no rubs Bruits: no abdominal aortic bruits and no carotid bruits GI Palpation (GI): No Abdominal aortic bruit present, Soft to palpation, nontender, No hepatosplenomegaly present and No Rebound tenderness present Auscultation: normal bowel sounds General: Yes no CVA tenderness Back/Spine/Pelvis Back: no CVA tenderness Cervical Spine: cervical ROM normal and No Cervical spine tenderness Thoracic/Lumbar Spine: thoraco-lumbar ROM normal, No pain with thoraco-lumbar ROM, No thoracic spinal tenderness and No lumbar spinal tenderness Skin General: warm and dry. Normal skin color. Normal skin turgor Lesions: no lesions Rashes: no rashes Trauma: no lacerations or abrasions Wounds: no wounds Nails: normal Neuro General: patient oriented x3, gait normal and CN's II-XI intact bilaterally Cranial nerves: Yes Equal, round and reactive pupils present Cognition (Neuro): normal cognition Gait exam (Neuro): Normal gait present Motor exam (neuro): 5/5 motor strength present throughout Sensory Exam: No Sensory deficit (Neuro) Deep tendon reflexes (DTR's): Right patellar reflex intensity grade: 2+ and Left patellar reflex intensity grade: 2+ Extrem General: Yes normal to inspection, No edema and No calf tenderness Psych Appearance: grossly normal Affect: normal affect Attitude: cooperative Thought process: Normal thought process present Coding Level of Care Code Est Pt Prev Care 18-39y(66224) Diagnoses Normal physical exam Z00.00 Anxiety F41.9 Bipolar 1 disorder, depressed F31.9 Myopia of both eyes H52.13 Asthma J45.909 Pap smear for cervical cancer screening Z12.4 Additional Codes Asthma Control Questionnaire - ACT Interpretation: Positive ([id number]) TEMI-7 Assessment Billing - TEMI-7 Assessment Tool: TEMI-7 Assessment 80112 ([id number]) PHQ-9 - 37244 - PHQ-9 Billing: Yes ([id number]) Assessment & Plan Assessment & Plan (1) Normal physical exam: Code(s): Z00.00 - Encounter for general adult medical examination without abnormal findings Category: Medical Plan: No significant functional limitation noted. Continue current treatment regimen. Advised to get routine lab work done and follow-up 2 months for mood and labs review or sooner with symptoms or concerns. Verbalized understanding and agreed with treatment plan. (2) Anxiety: Code(s): F41.9 - Anxiety disorder, unspecified Category: Medical Plan: Her mood is generally stable. Continue current treatment regimen. Routine exercise encouraged. Follow-up with therapist as planned. Follow-up in 2 months. Verbalized understanding and agreed with the plan. (3) Bipolar 1 disorder, depressed: Code(s): F31.9 - Bipolar disorder, unspecified Category: Medical Plan: Plan as above. (4) Myopia of both eyes: Code(s): H52.13 - Myopia, bilateral Category: Medical Plan: Her last eye exam was in 2019. Referred to Ophthalmology. (5) Asthma: Code(s): J45.909 - Unspecified asthma, uncomplicated Category: Medical Plan: ACT score is 19, partially control asthma. Continue current treatment regimen. Follow-up with symptoms or concerns. Verbalized understanding and agreed with the plan. (6) Pap smear for cervical cancer screening: Code(s): Z12.4 - Encounter for screening for malignant neoplasm of cervix Category: Medical Plan: Her last Pap smear test was over 3 years ago. 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 Orders: Referrals [employer]ER Referral Z12.4 - Encounter for screening for malignant neoplasm of cervix Ophthalmology Referral H52.13 - Myopia, bilateral
[2024-11-10 10:22] VITALS: BP 103/66; PULSE 66; RESP 16; TEMP 36.3; O2SAT 100; BMI 24.1
--- OUTSIDE RECORDS SUMMARY | 2024-11-10 10:36 | XMS_ITS | Continuity of Care Document ---
Author Organization [facility] Address [address] [facility] [address] [place] [address] Phone Care Team Providers Care Craniologist Name Role Phone Brinda Man MD Unavailable [...] Providers Copied on Encounter Office/outpa tient visit,est, [facility], [facility] [address], [place], [place], [id number], tel:[phone] [facility] Blood in stool (chief complaint) Blood in stoolEncounter for exam of blood pressure w/o abnormal findingsBody mass index (BMI) 30.0-30.9, adult 0 Donovan Rasmussenelia. [address] [place] [address], [address], [place], [address], [place]. tel:[phone] Office/outpa tient visit,[facility], [facility], [address] [place] [address] [facility] [address], [place], [place], [id number], [phone] [facility] PT C/O BURNING WITH URINATION X 1 EPISODE (chief complaint) DysuriaObesity (BMI 30.0-34.9)Encount er for exam of blood pressure w/o abnormal findingsBody mass index (BMI) 30.0-30.9, adult Oct- 9 Zach Robles. [address], [address], [place], [place], [id number] , [place]. tel:[phone] Office/outpa tient visit,est, [facility], [address], [place], [place], [id number], [place] [phone] [facility] Possible food poisoning (chief complaint) Abdominal pain, unspecified abdominal locationEncounter for exam of blood pressure w/o abnormal findingsBody mass index (BMI) 30.0-30.9, adult 9 Donovan Parry. [address] [place] [address], [address], [place], [address], [place]. tel:[phone] Office/outpa tient visit,rosio, alexa Yañez [facility], [address], [place], [place], [id number], [place] tel:[phone] [facility] Establish care (chief complaint) Fatigue, unspecified typeFamily history of breast cancerFamily history of thyroid cancerEncounter to establish careEncounter for exam of blood pressure w/o abnormal findingsBody mass index (BMI) 30.0-30.9, adult Sep-2 0-201 9 Donovan Brinda. [address] [facility], [address], [address], [place]. tel:[phone] Family History Family Member Type Diagnosis Age At Onset No Information Payers Payer name Insurance type Covered alliance party ID Deni barbosa(shaan Kaur (Blue Cross) [id number] Social History Type Description Quantity Date Captured [...] Sent Future Order: Lab Order CULTURE, SALM/SHIG ([id number]), Sent on: Sent Future Order: Lab Order [...] Mental Status Date Cognitive Assessment Orientation - Blanket ed to time, place, person, situation. Patient Care Teams Name Effective Dates (start - stop) Status Members No Information
== END 2024-11-10 11:09 | disposition home or self-care (01) ==
PROVIDERS: Visit Provider Nurse Practitioner Family
DX: Z00.00 Encounter for general adult medical examination without abnormal findings (principal); F41.9 Anxiety disorder, unspecified; F31.9 Bipolar disorder, unspecified; H52.13 Myopia, bilateral; J45.909 Unspecified asthma, uncomplicated; Z12.4 Encounter for screening for malignant neoplasm of cervix

== ENCOUNTER → 2024-11-10 10:04 | Outpatient (BNVA) | payer OTHER, SELFPAY | PROVIDERS: Visit Provider Nurse Practitioner Family | DX: Z00.00 Encounter for general adult medical examination without abnormal findings (principal); F31.9 Bipolar disorder, unspecified; F41.9 Anxiety disorder, unspecified; F43.10 Post-traumatic stress disorder, unspecified; H52.13 Myopia, bilateral; J45.909 Unspecified asthma, uncomplicated | CPT/HCPCS: 96127; 96160; 99395 ==

== ENCOUNTER 2025-01-11 14:15 | Outpatient (REF) | payer OTHER, SELFPAY ==
[2025-01-11 14:30] LABS: MANUAL DIFF FLAG NO
[2025-01-11 14:45] LABS: Basophils Percent Auto 0.7 % (0-2); Eosinophils Absolute Auto 0.2 X10*3/uL (0.0-0.4); Eosinophils Percent Auto 3.3 % (0-4); Hematocrit 40.4 % (37.0-47.0); Hemoglobin 13.2 g/dl (12.0-16.0); Imm Gran Abs Auto 0.01 X10*3/uL (0.00-0.03); Imm Gran Pct Auto 0.2 % (0.0-0.4); Lymphocytes Absolute Auto 1.7 X10*3/uL (1.2-4.9); Lymphocytes Percent Auto 28.6 % (20-40); Mean Corpuscular HGB Conc 32.7 g/dl (31.0-35.0); Mean Corpuscular Hemoglobin 30.5 pg (27.0-33.0); Mean Corpuscular Volume 93.3 fL (80.0-98.0); Mean Platelet Volume 9.7 fL (9.4-12.3); Monocytes Absolute Auto 0.5 X10*3/uL (0.1-1.2); Monocytes Percent Auto 8.6 % (2-11); Neutrophils Absolute Auto 3.4 x10*3/uL (2.0-8.3); Neutrophils Percent Auto 58.6 % (45-73); Platelet Count 344 X10*3/uL (160-400); Red Blood Count 4.33 X10*6/uL (4.20-5.50); Red Cell Distribution Width 12.3 % (11.0-16.0); White Blood Count 5.8 X10*3/uL (4.8-10.8)
[2025-01-11 14:49] LABS: Appearance Urine Clear; Color Urine Yellow; Glucose Urine UA Negative (Negative); Leukocyte Esterase Urine Negative (Negative); Nitrite Urine Negative (Negative); UMIC TRIGGER UACC YES; Urine Blood Trace (Negative); Urine Ketones Negative (Negative); Urine Protein Negative (Neg-Trace)
[2025-01-11 14:52] LABS: Bacteria Urine None Seen (None Seen); Hyaline Casts Urine 0-2 /LPF (0-2); RBC Urine 0-2 /HPF (0-2); Squamous Epithelial Cell Urine 0-2 /HPF (0-2); WBC Urine 0-5 /HPF (0-5)
[2025-01-11 15:18] LABS: Alanine Aminotransferase 22 U/L (0-31); Albumin Level 4.4 g/dL (3.5-5.0); Alkaline Phosphatase 69 U/L (39-117); Anion Gap 10 (12-20); Aspartate Amino Transferase 20 U/L (5-31); Blood Urea Nitrogen 10 mg/dL (9-16); Calcium 9.1 mg/dL (8.4-10.2); Carbon Dioxide 26 mmol/L (22-29); Chloride 107 mmol/L (96-108); Cholesterol 185 mg/dL (<200); Estimated Glomerular Filt Rate > 60; Glucose Fasting 91 mg/dL (60-99); HDL Cholesterol 68 mg/dL (>40); LDL Cholesterol Calculated 104 mg/dL (<100); Potassium 3.8 mmol/L (3.3-5.1); Sodium 139 mmol/L (135-145); Total Protein 7.8 g/dL (6.5-8.0); Triglycerides 67 mg/dL (<150)
[2025-01-11 15:33] LABS: TSH reflex Free T4 0.75 uIU/mL (0.32-4.0)
--- OUTSIDE RECORDS SUMMARY | 2025-01-11 16:19 | XMS_ITS | Encounter Summary ---
Author Organization [facility] Address [address] [place], [place] [id number] Phone Care Team Providers Care Pressurization Mechanic Name Role Phone Briana Vázquez NP Primary Care Provider Fany bey Encounter Details Date Type Department Care Team (Late st Contact Info) Description 04/25/2012 Documentation EM Family Medicine [address] [place], [place] [id number] Family Medicine, Physician [address] [place] [address] Social History Tobacco Use Types Packs/Day Years Used Date Smoking Tobacco: Never Assessed Comments Unknown Sex and Gender Information Value Date Recorded Sex Assigned at Not on file Legal Sex Female 4:57 PM EDT Gender Identity Not on file Sexual Orientation Not on file documented as of this encounter Plan of Treatment Not on file documented as of this encounter Visit Diagnoses Not on filedocumented in this encounter Care Teams Pressurization Mechanic Relationship Specialty Start Date End Date Briana Vázquez NP PCP - General 06/14/17 02/10/23 documented as of this encounter
--- OUTSIDE RECORDS SUMMARY | 2025-01-11 16:19 | XMS_ITS | Clinical Summary ---
Author Organization [facility] Address [address] [place] [address] Phone Care Team Providers Care Supervisor Cutting [employer] Boning Name Role Phone Unavailable Primary Care Provider Unavailabl e Immunizations Immunization Administration Dates Next Due DTP 04/03/1996,199 5,02/01/1995,12/04 DTaP 5 11/03/1999 HPV, Quadrivalent 03/24/2010,09/20/2009,07/19/20 09 Hep A, Adult 03/15/2015 Hep B, ped/adol 04/03/1995,1994,1994 Hib (HbOC) 01/01/1996, 5,02/01/1995,12/04 IPV 11/03/1999, 5,02/01/1995,12/04 Influenza Split 11/19/2012,07/12/2010 Influenza, injectable, trivalent 07/19/2009,1104/2007,08/21/2006 MMR 11/03/1999,01/01/1996 Meningococcal Conj (Menactra) MCV4P 03/15/2015,1 11/09/2006 Td (adult) (Tenivac), 5 Lf t etanus toxoid, PF, adsorbed 03/15/2015 Tdap 08/21/2006 Family History Relation Name Status Comments Father Alive Father: Alive a nd well Half-Brother Alive Half brother (M ): ADD/ADHD Mother Alive Mother: Alive a nd well Sister Alive Sister: Autism Social History Tobacco Use Types Packs/Day Years Used Date Smoking Tobacco: Never Comments:Never smoker Comments Unknown Sex and Gender Information Value Date Recorded Sex Assigned at Not on file Legal Sex Female 4:57 PM EDT Gender Identity Not on file Sexual Orientation Not on file Last Filed Vital Signs Vital Sign Reading Time Taken Comments Blood Pressure 119/78 05/30/2015 12:00 AM EDT Pulse 65 05/30/2015 12:00 AM EDT Temperature 36 ??C (96.8 ??F) 11/19/2012 12:00 AM EST Respiratory Rate - - Oxygen Saturation 100% 09/06/2010 12:00 AM EDT Inhaled Oxygen Concentration - - Weight 44.5 kg (98 lb) 05/30/2015 12:00 AM EDT Height 151.8 cm (4' 11.75 ) 05/30/2015 12:00 AM EDT Body Mass Index 19.3 05/30/2015 12:00 AM EDT Plan of Treatment Health Maintenance Due Date Last Done Comments Varicella Vaccines (1 of 2 - 13+ 2-dose series) 2007 Influenza Vaccines (#1) 2024 11/19/19 13, 07/12/2010, 07/19/2009, Additional history exists COVID-19 Vaccine (2023- season) 2024 DTaP,Tdap,and Td Vaccines (8 - Td or Tdap) 03/15/2025 03/15/2015, 08/21/2006, 11/03/1999, Additional history exists Hepatitis B Vaccines Completed 04/03/1995, 1994, 1994 HIB Vaccines Completed 01/01/1996, 03/06, 02/01/1995, Additional history exists IPV Vaccines Completed 11/03/1999, 03/06, 02/01/1995, Additional history exists MMR Vaccines Completed 11/03/1999, 01/01/1996 HPV Vaccines Completed 03/24/2010, 09/04, 07/19/2009 Hepatitis A Vaccines Aged Out 03/15/2015 No long er eligible based on patient's age to complete this topic Meningococcal Vaccine Aged Out 03/15/2015, 007 No longer eligible based on patient's age to complete this topic Men B Vaccine Aged Out No longer elig ible based on patient's age to complete this topic Pneumococcal Vaccine Aged Out No long er eligible based on patient's age to complete this topic Procedures * Due to [place] state law, this organization might not be sharing sensitive test results. Procedure Name Priority Date/Time Associated Diagnosis Comments CHLAMYDIA AND GONORRHEA, AMPLIFIED Routine 03/16/2015 3:15 PM EDT from Last 3 Months or Most Recently Relevant to Health Maintenance Results * Due to [place] state law, this organization might not be sharing sensitive test results. * Chlamydia and Gonorrhoea, Amplified (03/16/2015 3:15 PM EDT) URINE CHLAMYDIA AMP PROBE NEGATIVE [facility] Comment: No Chlamydia Trachomatis RNA detected in this patient's sample (REFERENCE RANGE/NORMAL VALUE: NOT DETECTED) URINE GC AMP PROBE NEGATIVE [facility] Comment: No Neisseria Gonorrhoeae RNA detected in this patient's sample (REFERENCE RANGE/NORMAL VALUE: NOT DETECTED) NOTE: This test uses railroad design consultant-mediated amplification method to detect rRNA from C.Trachomatis and N.Gonorrhoeae. A negative result does not preclude infection. In the case of a negative urine result, testing of an endocervical(female) or urethral(male) specimen is recommended if there is high clinical suspicion of infection. The performance characteristics of this test have not been evaluated in children. The Aptima Combo2 assay is not intended for the evaluation of suspected sexual abuse or for other medico-legal indications. The ordering provider should assess if the patient had consensual sex without risk of sexual abuse. Consult the [facility] if needed. Contact phone number . Therapeutic failure or success cannot be determined with the Aptima Combo2 assay since nucleic acid may persist following appropriate antimicrobial therapy. The Centers for Disease Control and Prevention (CDC) recommends confirmatory retesting using culture or a different nucleic acid amplification test when positive results occur, if indicated. Testing performed or reported by [facility], a Service of [facility], [address] [place] [id number] Levi Dye MD, PhD, Fuel Cell Battery Technician 03/16/2015 3:15 PM EDT Narrative [facility] - 03/16/2015 3:15 PM EDT URINE CHLAMYDIA GC AMP PROBE us Briana Vázquez NP LAB MICROBIOLOGY - GENERAL OR DERABLES Final Result [facility] [address] [place] [address], [place] from Last 3 Months or Most Recently Relevant to Health Maintenance
--- OUTSIDE RECORDS SUMMARY | 2025-01-11 16:19 | XMS_ITS | Encounter Summary ---
Author Organization [facility] Address [address] [place], [place] [address] Phone Care Team Providers Care Head Of Science Name Role Phone Briana Vázquez NP Primary Care Provider Fany bey Encounter Details Date Type Department Care Team (Late st Contact Info) Description 06/07/2015 Documentation [facility] [address] [place] [address] Family Medicine, Physician [facility] [address] Social History Tobacco Use Types Packs/Day Years [...] on filedocumented in this encounter Care Teams Head Of Science Relationship Specialty Start Date End Date Briana Vázquez NP PCP - General 06/14/17 02/10/23 documented as of this encounter
--- OUTSIDE RECORDS SUMMARY | 2025-01-11 16:19 | XMS_ITS | Encounter Summary ---
Author Organization [facility] Address [address] [place], [place] [address] Phone Care Team Providers Care Maintenance Job Titles Name Role Phone Briana Vázquez NP Primary Care Provider Fany bey Encounter Details Date Type Department Care Team (Late st Contact Info) Description 07/08/2014 Documentation EM Family Medicine [address] [place], [place] [id number] Family Medicine, Physician [facility] [place] [address] Social History Tobacco Use Types Packs/Day Years [...] on filedocumented in this encounter Care Teams Maintenance Job Titles Relationship Specialty Start Date End Date Briana Vázquez NP PCP - General 06/14/17 02/10/23 documented as of this encounter
--- OUTSIDE RECORDS SUMMARY | 2025-01-11 16:19 | XMS_ITS | Continuity of Care Document ---
Author Organization [facility] Address [address] [facility] [place] [address] Phone Care Team Providers Care Editor News Name Role Phone Brinda Man MD Unavailable [...] Providers Copied on Encounter Office/outpa tient visit,est, [facility], [facility] [facility] [address], [place], [place], [id number], tel:[phone] [facility] Blood in stool (chief complaint) Blood in stoolEncounter for exam of blood pressure w/o abnormal findingsBody mass index (BMI) 30.0-30.9, adult 0 Donovan Rasmussenelia. [address] [place] [address], [address], [place], [address], [place]. [phone] Office/outpa [facility]ient visit,[facility], [facility], [address] [place] [address] [facility] [facility] [address], [place], [place], [id number], [phone] [facility] PT C/O BURNING WITH URINATION X 1 EPISODE (chief complaint) DysuriaObesity (BMI 30.0-34.9)Encount er for exam of blood pressure w/o abnormal findingsBody mass index (BMI) 30.0-30.9, adult Oct- 9 Zach Robles. [address], [address], [place], [place], [id number] , [place]. tel:[phone] Office/outpa tient visit,est, [facility], [address], [place], [place], [id number], [place] [phone] [facility] Possible food poisoning (chief complaint) Abdominal pain, unspecified abdominal locationEncounter for exam of blood pressure w/o abnormal findingsBody mass index (BMI) 30.0-30.9, adult 9 Donovan Parry. [address] [place] [address], [address], [place], [address], [place]. tel:[phone] Office/outpa tient visit,rosio, alexa Yañez [facility], [address] [facility] [address] [facility], [place], [place], [id number], [place] tel:[phone] [facility] Establish care (chief complaint) Fatigue, unspecified typeFamily history of breast cancerFamily history of thyroid cancerEncounter to establish careEncounter for exam of blood pressure w/o abnormal findingsBody mass index (BMI) 30.0-30.9, adult Sep-2 0-201 9 Donovan Brinda. [address] [facility], [address], [place], [address], [place]. tel:[phone] Family History Family Member Type Diagnosis Age At Onset No Information Payers Payer name Insurance type Covered alliance party ID Deni barbosa(shaan Kaur ([employer] Cross) [id number] Social History Type Description Quantity Date Captured [...] Sent Future Order: Lab Order CULTURE, SALM/SHIG ([id number]), Sent on: Sent Future Order: Lab Order [...] Mental Status Date Cognitive Assessment Orientation - [place] ed to time, place, person, situation. Patient Care Teams Name Effective Dates (start - stop) Status Members No Information
--- OUTSIDE RECORDS SUMMARY | 2025-01-11 16:19 | XMS_ITS | Continuity of Care Document ---
Author Organization [facility] Address [address] [place] [address] Care Team Providers Care Accounts Receivable Administrator Name Role Phone Cher Colin Unavailable Unavailable Advance Directives Directive Yes / No Effective Date File Name No Information Encounters Encounter Description Practice Location Reason(s) For Visit Diagnoses Date Provider Providers Copied on Encounter [facility], [address], [place], [place], [id number], [address] No Information Hoang Kwon. [address] [facility] , [address], [place], [address], [place]. tel:[phone] Family History Family Member Type Diagnosis Age At Onset No Information Payers Payer name Insurance type Covered libertarian ID Authoriza tion(s) No Information Social History [...]
--- OUTSIDE RECORDS SUMMARY | 2025-01-11 16:19 | XMS_ITS | Clinical Summary ---
Author Organization [facility] Address [address] [place] [address] Care Team Providers Care Station Supervisor Name Role Phone Unavailable Primary Care Provider Unavailabl e Social History Tobacco Use Types Packs/Day Years Used Date Smoking Tobacco: Never Assessed Comments Unknown Sex and Gender Information Value Date Recorded Sex Assigned at Not on file Legal Sex Female 7:33 PM EST Gender Identity Not on file Sexual Orientation Not on file Plan of Treatment Health Maintenance Due Date Last Done Comments DTaP,Tdap,and Td Vaccines (1 - Tdap) 2013 Hepatitis B Vaccines (1 of 3 - 19+ 3-dose series) 2013 Cervical Cancer Screening: P ap Smear 2015 COVID-19 Vaccine ( - 2023-2 5 season) 2024 Influenza Vaccine (#1) 2024 HIB Vaccines Aged Out No longer eligi ble based on patient's age to complete this topic HPV Vaccines Aged Out No longer eligi ble based on patient's age to complete this topic Hepatitis A Vaccines Aged Out No long er eligible based on patient's age to complete this topic IPV Vaccines Aged Out No longer eligi ble based on patient's age to complete this topic MMR Vaccines Aged Out No longer eligi ble based on patient's age to complete this topic Meningococcal ACWY Vaccine Aged Out N o longer eligible based on patient's age to complete this topic Meningococcal B Vacine Aged Out No lo nger eligible based on patient's age to complete this topic Pneumococcal Vaccine: Pediat rics (0 to 5 Years) and At-Risk Patients (6 to 64 Years) Aged Out No longer eligible b ased on patient's age to complete this topic RSV Immunization Patients Un radha 20 months Aged Out No longer eligible b ased on patient's age to complete this topic Varicella Vaccines Aged Out No longer eligible based on patient's age to complete this topic
--- OUTSIDE RECORDS SUMMARY | 2025-01-11 16:19 | XMS_ITS | Encounter Summary ---
Author Organization [facility] Address [address] [place] [address] Phone Care Team Providers Care Hat Ironer Name Role Phone Briana Vázquez NP Primary Care Provider Fany bey Encounter Details Date Type Department Care Team (Late st Contact Info) Description 06/20/2017 Conversion Encounter [facility] - [address] [address] Social History Tobacco Use Types Packs/Day Years [...] on filedocumented in this encounter Care Teams Hat Ironer Relationship Specialty Start Date End Date Briana Vázquez NP PCP - General 06/14/17 02/10/23 documented as of this encounter
== END 2025-01-11 14:16 | disposition home or self-care (01) ==
LOC: HO.LAB 14:15
PROVIDERS: PCP Nurse Practitioner Family; Visit Provider Nurse Practitioner Family
DX: Z00.00 Encounter for general adult medical examination without abnormal findings (principal)
CPT/HCPCS: 36415; 80053; 80061; 81001; 84443; 85025

== ENCOUNTER 2025-01-12 09:16 | Outpatient (AMB) | payer OTHER, SELFPAY ==
--- NOTE | 2025-01-12 09:19 | MHC.PC.OV ---
Vital Signs 01/12/25 09:25 Height 5 ft Weight 124 lb BMI 24.2 BP 118/66 Blood Pressure Location Rt brachial Position Sitting Respiration 16 Pulse 58 Pulse Source Pulse Oximeter Temp 98.1 F Temp Source Oral Intake Visit Reasons: 2 mos mood, labs review Car Dryer Required: No Is last menstrual period known: Yes Last menstrual period: 01/27/25 Post menopausal: No Patient : No Allergies Seasonal Allergies Allergy (Intermediate, Verified 01/12/25 09:50) Sneezing Medication List - Last Reconciled 01/12/25 by Christine Trivedi CNP albuterol sulfate 2.5 mg (3 mL) inhalation QID PRN albuterol sulfate 90 mcg/actuation (Ventolin HFA) 2 puffs inhalation Q4-6H PRN fluoxetine 20 mg PO DAILY 30 days Tobacco use date assessed: 01/12/25 Dental Screening Dental Screen Date: 01/12/25 Did you have a dental visit in the last 12 months?: Yes Did you have a dental problem in the last 6 months where you did not have access to dental care?: No Was dental information given to patient?: Patient has dentist HPI HPI Comments History of Present Illness Details 29-year-old female presents for bipolar 1 disorder, anxiety, depression, PTSD, review of recent labs follow-up. She admits to taking her medications as prescribed without adverse reactions. Reports controlled anxiety and depressive symptoms. Her mood is also controlled. She offers no complaints and denies acute symptoms at this time. 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 1. Little interest or pleasure in doing things: not at all 2. Feeling down, depressed, or hopeless: not at all 3. Trouble falling or staying asleep, or sleeping too much: several days 4. Feeling tired or having little energy: several days 5. Poor appetite or overeating: several days 6. Feeling bad about yourself - or that you are a failure or have let yourself or your family down: not at all 7. Trouble concentrating on things, such as reading the newspaper or watching television: several days 8. Moving or speaking so slowly that other people could have noticed. Or the opposite - being so fidgety or restless that you have been moving around a lot more than usual: not at all 9. Thoughts that you would be better off or of hurting yourself in some way: not at all Total score: 4 Depression Screening Interpretation: Negative Depression Screening Done: Yes 77708 - PHQ-9 Billing: Yes Source: Developed by Drs. Anthony Nichole, Arleen Do, Vic Patel and colleagues, with an educational jeri from [employer]. Thrive Questionnaire Date Thrive assessed: 01/12/25 I am a: Patient What is your living situation today?: I have a steady place to live Within the past 12 months, did the food you bought not last and you didn't have the money to get more?: Never true Within the past 12 months, did you worry whether your food would run out before you got money to buy more?: Sometimes True Do you have trouble paying for medicines?: No Do you have trouble getting transportation to medical appointments?: No Do you have trouble paying your heating and electricity bill?: No Do you have trouble taking care of your child, family member or friend?: No Do you have trouble with day-to-day activities such as bathing, preparing meals, shopping, managing finances, etc.?: Yes Are you currently unemployed and looking for a job?: No Are you interested in more education?: No Please select the resources that you would like help with: None Currently or been in a relationship where the following occur: No concerns reported THRIVE Score: 1 AUDIT C Alcohol Use Questionnaire (AUDIT-C) 1. How often do you have a drink containing alcohol?: Never 3. How often do you have six or more drinks on one occasion?: Never Total Score: 0 TEMI-7 AMB Questionnaire TEMI-7 Date TEMI - 7 assessed: 01/12/25 Feeling nervous, anxious, or on edge: 0 = Not at all Not being able to stop or control worryin = Not at all Worrying too much about different things: 1 = Several days Trouble relaxin = Not at all Being so restless that it is hard to sit still: 1 = Several days Becoming easily annoyed or irritable: 0 = Not at all Feeling afraid as if something awful might happen: 0 = Not at all Total TEMI-7 score (0-4 normal; 5-9 mild; 10-14 moderate; 15-21 severe): 2 Source: Developed by Drs. Anthony Nichole, Arleen Do, Vic Patel and colleagues, with an educational jeri from [employer]. TEMI-7 Assessment Billing TEMI-7 Assessment Tool: TEMI-7 Assessment 33065 ACT Questionnaire In the past 4 weeks, how much of the time did your asthma keep you from getting as much done at work, school or at home?: Some of the time During the past 4 weeks, how often have you had shortness of breath?: 3-6 times a week During the past 4 weeks, how often did your asthma symptoms wake you up at night or earlier than usual in the morning?: Once a week During the past 4 weeks, how often have you had to use your rescue inhaler or nebulizer medication?: 2-3 times a week How would you rate your asthma control during the past 4 weeks?: Somewhat controlled Score: 15 Review of Systems Const Details: Const Denies chills, Denies fatigue, Denies fever(s), Denies headache(s) and Denies weakness ENT Denies dizziness and Denies headache(s) Card Denies chest pain, Denies lightheadedness, Denies dyspnea and Denies other (Palpitations) Resp Denies cough, Denies dyspnea, Denies wheezing and Denies other ( shortness of breath) GI Denies abdominal pain, Denies melena, Denies hematochezia, Denies change in bowel habits, Denies dyspepsia and Denies nausea Denies hematuria and Denies dysuria Musc Denies abnormal gait, Denies myalgias, Denies arthralgias, Denies numbness and Denies tingling Skin/Breast Denies rash, Denies unusual bruising and Denies wounds Neuro Denies abnormal gait, Denies dizziness, Denies headache(s), Denies memory loss, Denies numbness, Denies Sensory deficit (Neuro), Denies tingling and Denies weakness Psych Denies anxiety, Denies depression, Denies memory loss Endo Denies cold intolerance, Denies fatigue, Denies heat intolerance, Denies polydipsia and Denies polyuria Aller/Immun Denies wheezing Physical exam (Primary Care) Vital Signs: Last Vital Signs Temp 98.1 F 01/12/25 09:25 Pulse 58 01/12/25 09:25 Resp 16 01/12/25 09:25 BP 118/66 01/12/25 09:25 BMI result Body Mass Index 24.2 Tobacco/Smoking Status: Tobacco use Status Tobacco use date assessed 01/12/25 01/12/25 09:33 Patient Tobacco Use Status Never used Tobacco 01/12/25 09:19 e-Cigarette/Vaping Use Never Used 01/12/25 09:19 PHQ-9: PHQ-9 Score PHQ-9: Total score 4 01/12/25 09:33 Depression Screening Interpretation: Negative Thrive Assessment: Date of Thrive Assessment Date Thrive assessed 01/12/25 01/12/25 09:19 Currently or been in a relationship where the following occur: No concerns reported Const Other: General: no acute distress and well developed Nutritional Appearance: well nourished Orientation/consciousness: patient oriented x3 HENDC Head: Yes normocephalic and Yes atraumatic Eyes General: appearance normal, both eyes and all related structures Pupils: Equal, round and reactive pupils present EOM: EOMs intact bilaterally Resp Effort & Inspection: normal respiratory effort Auscultation: clear to auscultation bilaterally Cardio Rate: regular rate Rhythm: regular rhythm Heart sounds: S1 normal heart sound present, S2 normal heart sound present, no gallops, no murmurs and no rubs GI Palpation (GI): No Abdominal aortic bruit present, Soft to palpation, nontender, No hepatosplenomegaly present and No Rebound tenderness present Auscultation: normal bowel sounds General: Yes no CVA tenderness Back/Spine/Pelvis Back: no CVA tenderness Cervical Spine: cervical ROM normal and No Cervical spine tenderness Thoracic/Lumbar Spine: thoraco-lumbar ROM normal, No pain with thoraco-lumbar ROM, No thoracic spinal tenderness and No lumbar spinal tenderness Extrem General: Yes normal to inspection, No edema and No calf tenderness Skin General: warm and dry. Normal skin color. Normal skin turgor Neuro General: patient oriented x3, gait normal and no focal neuro deficit Cranial nerves: Yes Equal, round and reactive pupils present Cognition (Neuro): normal cognition Gait exam (Neuro): Normal gait present Sensory Exam: No Sensory deficit (Neuro) Psych Appearance: grossly normal Affect: normal affect Attitude: cooperative Thought process: Normal thought process present Coding Level of Care Code Est Pt Level 3 (01661) Diagnoses Bipolar 1 disorder, depressed F31.9 Depression F32.A Anxiety F41.9 PTSD (post-traumatic stress disorder) F43.10 Elevated LDL cholesterol level E78.00 Additional Codes TEMI-7 Assessment Billing - TEMI-7 Assessment Tool: TEMI-7 Assessment 51151 ([id number]) PHQ-9 - 57848 - PHQ-9 Billing: Yes ([id number]) Assessment & Plan Assessment & Plan (1) Bipolar 1 disorder, depressed: Code(s): F31.9 - Bipolar disorder, unspecified Category: Medical Plan: Controlled anxiety and depression symptoms. Mood is controlled. Continue current treatment regimen. Follow-up in 3 months or sooner with symptoms or concerns. Verbalized understanding and agreed with treatment plan. (2) Depression: Code(s): F32.A - Depression, unspecified Category: Medical Plan: Plan as above. (3) Anxiety: Code(s): F41.9 - Anxiety disorder, unspecified Category: Medical Plan: Plan as above. (4) PTSD (post-traumatic stress disorder): Code(s): F43.10 - Post-traumatic stress disorder, unspecified Category: Medical Plan: Plan as above. (5) Elevated LDL cholesterol level: Code(s): E78.00 - Pure hypercholesterolemia, unspecified Category: Medical Plan: Recent labs reviewed; unremarkable findings except for slightly elevated LDL, 104. Advised to limit foods high in saturated fat and avoid foods high in trans fat. Routine exercise encouraged. Will monitor lipid panel level periodically or based rather than symptoms or concerns. Verbalized understanding and agreed with treatment plan.
[2025-01-12 09:25] VITALS: BP 118/66; PULSE 58; RESP 16; TEMP 36.7; BMI 24.2
--- OUTSIDE RECORDS SUMMARY | 2025-01-12 10:22 | XMS_ITS | Encounter Summary ---
Author Organization [facility] Address [address] [place], [place] [id number] Phone Care Team Providers Care Instructor Decorating Name Role Phone Briana Vázquez NP Primary Care Provider Fany bey Encounter Details Date Type Department Care Team (Late st Contact Info) Description 07/08/2014 Documentation EM Family Medicine [address] [place], [place] [id number] Family Medicine, Physician [facility] [place] [address] Social History Tobacco Use Types Packs/Day Years [...] on filedocumented in this encounter Care Teams Instructor Decorating Relationship Specialty Start Date End Date Briana Vázquez NP PCP - General 06/14/17 02/10/23 documented as of this encounter
--- OUTSIDE RECORDS SUMMARY | 2025-01-12 10:22 | XMS_ITS | Continuity of Care Document ---
Author Organization [facility] Address [address] [place] [address] Care Team Providers Care Text Transcriber Name Role Phone Cher Colin Unavailable Unavailable Advance Directives Directive Yes / No Effective Date File Name No Information Encounters Encounter Description Practice Location Reason(s) For Visit Diagnoses Date Provider Providers Copied on Encounter [facility], [address], [place], [place], [id number], [address] No Information Hoang Kwon. [address] [facility] , [address], [place], [address], [place]. tel:[phone] Family History Family Member Type Diagnosis Age At Onset No Information Payers Payer name Insurance type Covered democrat ID Authoriza tion(s) No Information Social History [...]
--- OUTSIDE RECORDS SUMMARY | 2025-01-12 10:22 | XMS_ITS | Continuity of Care Document ---
Author Organization [facility] Address [address] [place] [address] Phone Care Team Providers Care Web Content Writer Name Role Phone Brinda Man MD Unavailable [...] Providers Copied on Encounter Office/outpa tient visit,est, [facility], [facility] [facility] [address], [place], [place], [id number], tel:[phone] [facility] Blood in stool (chief complaint) Blood in stoolEncounter for exam of blood pressure w/o abnormal findingsBody mass index (BMI) 30.0-30.9, adult 0 Donovan Rasmussenelia. [address] [place] [address], [address], [place], [address], [place]. [phone] Office/outpa tient visit,[facility], [facility], [address] [place] [address] [facility] [address], [place], [place], [id number], [phone] [facility] PT C/O BURNING WITH URINATION X 1 EPISODE (chief complaint) DysuriaObesity (BMI 30.0-34.9)Encount er for exam of blood pressure w/o abnormal findingsBody mass index (BMI) 30.0-30.9, adult Oct- 9 Zach Robles. [address], [address], [place], [place], [id number] , [place]. [phone] Office/outpa tient visit,est, [facility], [address], [place], [place], [id number], [place] [phone] [facility] Possible food poisoning (chief complaint) Abdominal pain, unspecified abdominal locationEncounter for exam of blood pressure w/o abnormal findingsBody mass index (BMI) 30.0-30.9, adult 9 Donovan Parry. [address] [place] [address], [address], [place], [address], [place]. tel:[phone] Office/outpa tient visit,rosio, alexa Yañez [facility], [address], [place], [place], [id number], [place] tel:[phone] [facility] Establish care (chief complaint) Fatigue, unspecified typeFamily history of breast cancerFamily history of thyroid cancerEncounter to establish careEncounter for exam of blood pressure w/o abnormal findingsBody mass index (BMI) 30.0-30.9, adult Sep-2 0-201 9 Donovan Brinda. [address] [facility], [address], [place], [address], [place]. tel:[phone] Family History Family Member Type Diagnosis Age At Onset No Information Payers Payer name Insurance type Covered green party ID Deni barbosa(shaan Kaur ([employer]) [id number] Social History Type Description Quantity Date Captured [...] Sent Future Order: Lab Order CULTURE, SALM/SHIG ([id number]), Sent on: Sent Future Order: Lab Order [...] Mental Status Date Cognitive Assessment Orientation - [place] ed to time, place, person, situation. Patient Care Teams Name Effective Dates (start - stop) Status Members No Information
--- OUTSIDE RECORDS SUMMARY | 2025-01-12 10:22 | XMS_ITS | Encounter Summary ---
Author Organization [facility] Address [address] [place] [address] Phone Care Team Providers Care Information Security Systems Instructor Name Role Phone Briana Vázquez NP Primary Care Provider Fany bey Encounter Details Date Type Department Care Team (Late st Contact Info) Description 06/20/2017 Conversion Encounter [facility] - [address] [address] Social History Tobacco Use Types Packs/Day Years [...] on filedocumented in this encounter Care Teams Information Security Systems Instructor Relationship Specialty Start Date End Date Briana Vázquez NP PCP - General 06/14/17 02/10/23 documented as of this encounter
--- OUTSIDE RECORDS SUMMARY | 2025-01-12 10:22 | XMS_ITS | Encounter Summary ---
Author Organization [facility] Address [address] [place], [place] [id number] Phone Care Team Providers Care Bead Picker Name Role Phone Briana Vázquez NP Primary Care Provider Fany bey Encounter Details Date Type Department Care Team (Late st Contact Info) Description 06/07/[address] [facility] Family Medicine [address] [place] [address] Family Medicine, Physician [facility] [place] [address] Social History Tobacco Use Types Packs/Day Years [...] on filedocumented in this encounter Care Teams Bead Picker Relationship Specialty Start Date End Date Briana Vázquez NP PCP - General 06/14/17 02/10/23 documented as of this encounter
--- OUTSIDE RECORDS SUMMARY | 2025-01-12 10:22 | XMS_ITS | Encounter Summary ---
Author Organization [facility] Address [address] [place], [place] [address] Phone Care Team Providers Care Head Of Geography Name Role Phone Briana Vázquez NP Primary Care Provider Fany bey Encounter Details Date Type Department Care Team (Late st Contact Info) Description 04/25/2012 Documentation EM Family Medicine [address] [place], [place] [address] Family Medicine, Physician [address] [place] [address] Social History Tobacco Use Types Packs/Day Years [...] in this encounter Care Teams Head Of Geography Relationship Specialty Start Date End Date Briana Vázquez NP PCP - General 06/14/17 02/10/23 documented as of this encounter
--- OUTSIDE RECORDS SUMMARY | 2025-01-12 10:22 | XMS_ITS | Clinical Summary ---
Author Organization [facility] Address [address] [place] [address] Phone Care Team Providers Care Steel Division Supervisor Name Role Phone Unavailable Primary Care [...] complete this topic Procedures * Due to [place] state law, this organization might not be sharing sensitive test results. Procedure Name Priority Date/Time Associated Diagnosis Comments CHLAMYDIA AND GONORRHEA, AMPLIFIED Routine 03/16/2015 3:15 PM EDT from Last 3 Months or Most Recently Relevant to Health Maintenance Results * Due to [place] state law, this organization might not be sharing sensitive test results. * Chlamydia and Gonorrhoea, Amplified (03/16/2015 3:15 PM EDT) URINE CHLAMYDIA AMP PROBE NEGATIVE [facility] Comment: No Chlamydia Trachomatis RNA detected in this patient's sample (REFERENCE RANGE/NORMAL VALUE: NOT DETECTED) URINE GC AMP PROBE NEGATIVE [facility] Comment: No Neisseria Gonorrhoeae RNA detected in this patient's sample (REFERENCE RANGE/NORMAL VALUE: NOT DETECTED) NOTE: This test uses bear keeper-mediated amplification method to detect rRNA from C.Trachomatis [...] without risk of sexual abuse. Consult the [facility] if needed. Contact phone number . Therapeutic failure or success cannot be determined with the Aptima Combo2 assay since nucleic acid may persist following appropriate antimicrobial therapy. The Centers for Disease Control and Prevention (CDC) recommends confirmatory retesting using culture or a different nucleic acid amplification test when positive results occur, if indicated. Testing performed or reported by [facility], a Service of [facility], [address] [place] [address] Levi Dye MD, PhD, Manager Reading 03/16/2015 3:15 PM EDT Narrative [facility] - 03/16/2015 3:15 PM EDT URINE CHLAMYDIA GC AMP PROBE us Briana Vázquez NP LAB MICROBIOLOGY - GENERAL OR DERABLES Final Result [facility] [address] [place] [address], [place] from Last 3 Months or Most Recently Relevant to Health Maintenance
--- OUTSIDE RECORDS SUMMARY | 2025-01-12 10:22 | XMS_ITS | Clinical Summary ---
Author Organization [facility] Address [address] [place] [address] Care Team Providers Care Fruit Loader Machine Operator Name Role Phone Unavailable Primary Care Provider [...]
== END 2025-01-12 09:59 | disposition home or self-care (01) ==
LOC: HO.HMCFM 09:17
PROVIDERS: Visit Provider Nurse Practitioner Family
DX: F31.9 Bipolar disorder, unspecified (principal); F32.A Depression, unspecified; F41.9 Anxiety disorder, unspecified; F43.10 Post-traumatic stress disorder, unspecified; E78.00 Pure hypercholesterolemia, unspecified

== ENCOUNTER → 2025-01-12 09:16 | Outpatient (BNVA) | payer OTHER, SELFPAY | PROVIDERS: Visit Provider Nurse Practitioner Family | DX: F31.9 Bipolar disorder, unspecified (principal); F41.9 Anxiety disorder, unspecified; F43.10 Post-traumatic stress disorder, unspecified; E78.00 Pure hypercholesterolemia, unspecified | CPT/HCPCS: 96127; 99212 ==

== ENCOUNTER 2025-01-20 14:01 | Outpatient (REF) | payer OTHER, SELFPAY ==
[2025-01-22 10:49] LABS: Bacterial Vaginosis PCR NEGATIVE (Negative); Candida Group PCR NOT DETECTED (Not Detect); Candida glab krusei PCR NOT DETECTED (Not Detect); Trichomonas vaginalis PCR NOT DETECTED (Not Detect)
[2025-01-22 11:19] LABS: CT PCR NOT DETECTED (Not Detect.); NG PCR NOT DETECTED (Not Detect.)
[2025-01-27 14:09] LABS: HPV Genotype 16 Negative (Negative); HPV Genotype 18 Negative (Negative); HPV High Risk Negative (Negative)
== END 2025-01-20 14:02 | disposition home or self-care (01) ==
LOC: HO.LAB 14:01
PROVIDERS: Visit Provider Advanced Practice Midwife
DX: Z01.419 Encounter for gynecological examination (general) (routine) without abnormal findings (principal); N89.8 Other specified noninflammatory disorders of vagina; Z20.2 Contact with and (suspected) exposure to infections with a predominantly sexual mode of transmission
CPT/HCPCS: 81515; 87491; 87591; 87626; 99385; 99459

== ENCOUNTER 2025-01-20 14:01 | Outpatient (AMB) | payer OTHER, SELFPAY ==
--- NOTE | 2025-01-20 14:03 | A.OFFVIS_ITS ---
Vital Signs 01/20/25 14:06 Height 5 ft Weight 124 lb BMI 24.2 BP 114/74 Intake Visit Reasons: New patient Annual Intake Note: Last pap smear 2020, normal pap smear history. 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 She says she used to go to the midwifery group when we were on the 2nd floor many years ago. She has not had a baby. She says she was at her sister's in 2006 at [facility] when she was 11 years old. Then she moved to [place] and lived in [facility] for a while.- she was on Depo-Provera for a while but she did not really like it but then it ran out. she is sexually active with a partner in says it is a good relationship. She would be open to getting because she is getting older now. She is not currently contraceptive thing she is open to testing during the exam but declined blood work testing for HIV hep B hep C and syphilis. She says she recently saw her new primary care provider and had blood work done and she said she was told everything is fine. She is not currently working, but she stays very active. She tries to eat very well and does work out PFS Medical History Bipolar 1 disorder, depressed Anxiety Depression Asthma Family History Mother Thyroid condition Maternal Grandmother Colon cancer Asthma Other No family history of mental disorder Social History (Updated 01/20/25 @ 14:04 by Zena Brown MA) Household Members: Family Housing: Apartment Alcohol intake: never Patient Tobacco Use Status: Never used Tobacco e-Cigarette/Vaping Use: Never Used Second Hand Smoke Exposure: No Substance Use Type: Marijuana service: No Current occupational status: employed and disabled Current occupational exposures/hazards: No Cognitive needs: Yes Hearing needs: No Vision needs: Yes Female Reproductive History Menstrual Age of Menarche: 11 Duration of menses: 6-7 days Date of last menstrual period: 12/29/24 control method: none Total pregnancies: 3 History of abnormal pap smear: No Physical Exam Vital Signs: Last Vital Signs BP 114/74 01/20/25 14:06 BMI result Body Mass Index 24.2 Const General: healthy appearing, comfortable, no acute distress, well developed and alert Nutritional Appearance: average body habitus Orientation/consciousness: patient oriented x3 Limitations: no limitations HEENT Head: Yes normocephalic Neck Neck: Yes normal visual inspection Chest Chest palpation & inspection: normal inspection of the chest Breast/axilla inspection: normal inspection of the breasts and normal inspection of the axillae Breast/axilla palpation: normal palpation of the breasts and normal palpation of the axillae Resp Effort & Inspection: normal respiratory effort GI Inspection: Yes normal to inspection, No Abdominal wall edema and No distended Palpation (GI): Soft to palpation and nontender Other: External exam within normal limits vagina is pink and healthy with normal scant white discharge consistent with luteal phase cervix nulliparous pink smooth healthy appearing mobile nontender uterus is small midposition mobile nontender patient has very good muscle tone with Kegel adnexa nontender non-enlarged as well. General: Yes bladder normal to palpation External Female Exam: normal external appearance and normal appearance of the urethra Speculum Exam - Vagina: normal appearance of the vagina, normal palpation and normal vaginal discharge Speculum Exam - Cervix: normal appearance of the cervix, normal palpation and nontender Bimanual exam- vagina & uterus: normal bimanual exam, normal palpation, uterine size normal, bladder normal to palpation, consistency normal, normal palpation, uterine mobility normal, uterine shape normal, No Cervical tenderness present, non-tender and no cervical motion tenderness Bimanual Exam- Adnexa, other: normal adnexae, no masses, normal and No adnexal tenderness Neuro General: patient oriented x3 Assessment & Plan Assessment & Plan (1) Pap smear for cervical cancer screening: Code(s): Z12.4 - Encounter for screening for malignant neoplasm of cervix Category: Medical (2) Encounter for screening examination for sexually transmitted disease: Code(s): Z11.3 - Encounter for screening for infections with a predominantly sexual mode of transmission Category: Medical (3) Family planning counseling: Code(s): Z30.09 - Encounter for other general counseling and advice on contraception Category: Medical (4) Well woman exam with routine gynecological exam: Code(s): Z01.419 - Encounter for gynecological examination (general) (routine) without abnormal findings Category: Medical Plan -----Discussed in this visit the following: healthy balanced diet, regular and consistent exercise, getting recommended health screens, doing the best she can for her particular health concerns, kegel exercises, pap smear screening and followup recommendations, mammography screening and SBE, normal changes in cycles in her life stage--- . Discussed her health in general everything looks very very good on exam today. Discussed her openness to . Recommend taking a multivitamin with folic acid and maintaining the good health that she is in. Discussed that birthing center where she saw her baby sister be born has close since beginning of the pandemic 02/07/2020, and that now for women having their 1st babies there best advised to seek care early in the the start where they wanted to deliver and options in this area would [facility] Valentine and since her other sister delivered at [facility] that is where she thinks she would go discussed that we can see her for other thin for tests etc. but it would be good for her to be thinking about where she would want to go so she waste time and delay initiation of the important beginnings of care when the time comes. otherwise see her in a year. She was not interested in blood work for STIs. Pap smear was done as well as testing for gonorrhea chlamydia trichomoniasis as well as bacterial vaginosis yeast discussed that serial vaginosis yeast are not very serious and do not need to be treated unless she is having symptoms and she has very obviously a very clear healthy vagina today. Discussed that otherwise we will see her in 1 year. Timeframe/Date Comment RTC 1 year or p.r.n. Coding Level of Care Code New Pt Prev Care 18-39yr([id number] Diagnoses Pap smear for cervical cancer screening Z12.4 Encounter for screening examination for sexually transmitted disease Z11.3 Family planning counseling Z30.09 Well woman exam with routine gynecological exam Z01.419
[2025-01-20 14:06] VITALS: BP 114/74; BMI 24.2
== END 2025-01-20 15:18 | disposition home or self-care (01) ==
LOC: HO.HWSM 14:02
PROVIDERS: Visit Provider Advanced Practice Midwife
DX: Z01.419 Encounter for gynecological examination (general) (routine) without abnormal findings (principal); Z30.09 Encounter for other general counseling and advice on contraception
CPT/HCPCS: 99385; 99459

== ENCOUNTER 2025-01-20 15:36 | Outpatient (REF) | payer OTHER, SELFPAY | END 2025-01-20 15:37 | disposition home or self-care (01) | LOC: HO.LNP 15:36 | PROVIDERS: Visit Provider Advanced Practice Midwife | DX: Z00.00 Encounter for general adult medical examination without abnormal findings (principal) | CPT/HCPCS: 88175 ==

== ENCOUNTER 2025-02-03 14:12 | Outpatient (AMB) | payer OTHER, SELFPAY ==
[2025-02-03 15:08] VITALS: BP 110/68; PULSE 62; TEMP 36.9; O2SAT 95
--- NOTE | 2025-02-03 15:08 | MHC.OFFWIV ---
Intake Vital Signs 02/03/25 15:08 Weight 127 lb BP 110/68 Blood Pressure Location Rt brachial Position Sitting Pulse 62 Pulse Source Pulse Oximeter Temp 98.4 F Temp Source Oral Pulse Oximetry (%) 95 Oxygen Delivery Method Room Air Intake Visit Reasons: EP Asthma Intake Note: Patient here for Asthma flare up that started about 4 days ago and has been using her inhaler which has not really been helping much. Patient Tobacco Use Status: Never used Tobacco Allergies Seasonal Allergies Allergy (Intermediate, Verified 02/03/25 15:09) Sneezing Do you need a note to return to daycare/school/sports/work: No HPI HPI Comments History of Present Illness Details History - The patient is a 29-year-old female presenting with asthma exacerbation due to seasonal allergies. - Exacerbation occurs annually during the spring months, particularly in February and March. - The exacerbation is characterized by heightened asthma symptoms: chest tightness, difficulty sleeping, dry cough, and phlegm production. - Accompanying symptoms of allergic rhinitis include nasal congestion and sneezing. - Utilizes Ventolin with minimal effect noted recently. - Takes Zyrtec daily with some symptom relief. - Previously used Flonase but currently does not have it; instructed on usage. - Denies ear pain, sinus pain, headache, or fatigue. - No significant respiratory history beyond current exacerbation. Physical Exam General: Cooperative, healthy appearing, comfortable and no acute distress Orientation/consciousness: Patient oriented x3 Limitations: No limitations Head: Normal to inspection Ears: Hearing grossly normal bilaterally, external ears normal and TM's normal bilaterally Nose: Normal external nose present, Normal nares present and yellow nasal discharge present Face and sinus: Normal facial exam and Yes sinuses nontender Mouth: Normal oral and palatal mucosa present and moist mucous membranes Throat: Yes tonsils normal, Yes uvula midline. Posterior oropharynx erythema w/cobblestoning Eyes: Appearance normal, both eyes and all related structures Neck: Normal visual inspection Respiratory: Clear to auscultation bilaterally. Normal respiratory effort, able to speak in complete sentences, no respiratory distress, not tachypneic, no tripod positioning and no use of accessory muscles Cardiovascular: Regular rate and rhythm. Normal S1 and S2 Skin: No rashes or lesions noted Neuro: Patient oriented x3 Extremities: Normal to inspection and Yes no clubbing, cyanosis or edema [facility] Medical History Bipolar 1 disorder, depressed Anxiety Depression Asthma Family History Mother Thyroid condition Maternal Grandmother Colon cancer Asthma Other No family history of mental disorder Social History (Updated 01/20/25 @ 14:04 by Zena Brown MA) Household Members: Family Housing: Apartment Alcohol intake: never Patient Tobacco Use Status: Never used Tobacco e-Cigarette/Vaping Use: Never Used Second Hand Smoke Exposure: No Substance Use Type: Marijuana service: No Current occupational status: employed and disabled Current occupational exposures/hazards: No Cognitive needs: Yes Hearing needs: No Vision needs: Yes Female Reproductive History Menstrual Age of Menarche: 11 Review of Systems Const All systems reviewed & are unremarkable except as noted in HPI and below Physical Exam Vital Signs: Last Vital Signs Temp 98.4 F 02/03/25 15:08 Pulse 62 02/03/25 15:08 BP 110/68 02/03/25 15:08 Pulse Ox 95 02/03/25 15:08 Oxygen Delivery Method Room Air 02/03/25 15:08 Assessment & Plan Assessment & Plan (1) Seasonal allergic rhinitis: Code(s): J30.2 - Other seasonal allergic rhinitis Qualifiers: Allergic rhinitis trigger: unspecified Qualified Code(s): J30.2 - Other seasonal allergic rhinitis Plan: VSS, pt well appearing and PE remarkable for nasal congestion and cobblestoning. The mild asthma exacerbation is primarily due to seasonal allergies, and the patient's current regimen should be reinforced with the addition of Flonase to effectively manage nasal congestion. The prescription was sent to the pharmacy, with specific instructions given on usage. The patient will continue the daily use of Zyrtec and Ventolin as needed for acute symptoms. Benadryl was also recommended at night for additional relief. The findings during the examination indicated no additional complications. It is suggested that the patient follow up on her treatment response, though routine management beyond this episode should be referred to her primary care provider as necessary. Patient was informed and verbally consented to the use of an ambient scribe for clinic note documentation during this visit (2) Mild asthma with acute exacerbation: Code(s): J45.901 - Unspecified asthma with (acute) exacerbation Qualifiers: Asthma persistence: intermittent Qualified Code(s): J45.21 - Mild intermittent asthma with (acute) exacerbation Plan: as above Medications: New fluticasone propionate 50 mcg/actuation administer into each nostril 1 spray intranasal Q12H 16 grams 0RF Coding Level of Care Code Est Pt Level 3 (62993) Diagnoses Seasonal allergic rhinitis, unspecified trigger J30.2 Allergic rhinitis trigger: unspecified Mild intermittent asthma with acute exacerbation J45.21 Asthma persistence: intermittent
--- OUTSIDE RECORDS SUMMARY | 2025-02-03 17:01 | XMS_ITS | Continuity of Care Document ---
Author Organization [facility] Address [address] [place] [address] Care Team Providers Care Director Of Community Education Name Role Phone Cher Colin Unavailable Unavailable Advance Directives Directive Yes / No Effective Date File Name No Information Encounters Encounter Description Practice Location Reason(s) For Visit Diagnoses Date Provider Providers Copied on Encounter [facility], [address], [place], [place], [id number], [address] No Information Hoang Kwon. [address] , [address], [place], [address], [place]. tel:[phone] Family History Family Member Type Diagnosis Age At Onset No Information Payers Payer name Insurance type Covered constitution party ID Authoriza tion(s) No Information Social [...]
--- OUTSIDE RECORDS SUMMARY | 2025-02-03 17:01 | XMS_ITS | Clinical Summary ---
Author Organization [facility] Address [address] [place] [address] Phone Care Team Providers Care Kieselguhr Regenerator Operator Name Role Phone Unavailable Primary Care [...] complete this topic Procedures * Due to [place] state law, this organization might not be sharing sensitive test results. Procedure Name Priority Date/Time Associated Diagnosis Comments CHLAMYDIA AND GONORRHEA, AMPLIFIED Routine 03/16/2015 3:15 PM EDT from Last 3 Months or Most Recently Relevant to Health Maintenance Results * Due to [place] state law, this organization might not be sharing sensitive test results. * Chlamydia and Gonorrhoea, Amplified (03/16/2015 3:15 PM EDT) URINE CHLAMYDIA AMP PROBE NEGATIVE [facility] Comment: No Chlamydia Trachomatis RNA detected in this patient's sample (REFERENCE RANGE/NORMAL VALUE: NOT DETECTED) URINE GC AMP PROBE NEGATIVE [facility] Comment: No Neisseria Gonorrhoeae RNA detected in this patient's sample (REFERENCE RANGE/NORMAL VALUE: NOT DETECTED) NOTE: This test uses curtain stretcher assembler-mediated amplification method to detect rRNA from C.Trachomatis [...] without risk of sexual abuse. Consult the [facility] if needed. Contact phone number . Therapeutic failure or success cannot be determined with the Aptima Combo2 assay since nucleic acid may persist following appropriate antimicrobial therapy. The Centers for Disease Control and Prevention (CDC) recommends confirmatory retesting using culture or a different nucleic acid amplification test when positive results occur, if indicated. Testing performed or reported by [facility], a Service of [facility], [address] [place] [id number] Levi Dye MD, PhD, Guide Excursion 03/16/2015 3:15 PM EDT Narrative [facility] - 03/16/2015 3:15 PM EDT URINE CHLAMYDIA GC AMP PROBE us Briana Vázquez NP LAB MICROBIOLOGY - GENERAL OR DERABLES Final Result [facility] [address] [place] [address], [place] from Last 3 Months or Most Recently Relevant to Health Maintenance
--- OUTSIDE RECORDS SUMMARY | 2025-02-03 17:01 | XMS_ITS | Encounter Summary ---
Author Organization [facility] Address [address] [place], [place] [address] Phone Care Team Providers Care Screen Examiner Name Role Phone Briana Vázquez NP Primary Care Provider Fany bey Encounter Details Date Type Department Care Team (Late st Contact Info) Description 06/07/2015 Documentation [facility] Family Medicine [address] [place] [address] Family Medicine, Physician [facility] [place] [address] Social History Tobacco Use Types Packs/Day Years [...] on filedocumented in this encounter Care Teams Screen Examiner Relationship Specialty Start Date End Date Briana Vázquez NP PCP - General 06/14/17 02/10/23 documented as of this encounter
--- OUTSIDE RECORDS SUMMARY | 2025-02-03 17:01 | XMS_ITS | Continuity of Care Document ---
Author Organization [facility] Address [address] [place] [address] Phone Care Team Providers Care Ordnance Engineering Technician Name Role Phone Brinda Man MD Unavailable [...] Providers Copied on Encounter Office/outpa tient visit,est, [facility], [facility] [facility] [address], [place], [place], [id number], tel:[phone] [facility] Blood in stool (chief complaint) Blood in stoolEncounter for exam of blood pressure w/o abnormal findingsBody mass index (BMI) 30.0-30.9, adult 0 Donovan Rasmussenelia. [address] [place] [address], [address], [place], [address], [place]. tel:[phone] Office/outpa tient visit,[facility], [facility], [address] [place] [address] [facility], [place], [place], [id number], [phone] [facility] PT C/O BURNING WITH URINATION X 1 EPISODE (chief complaint) DysuriaObesity (BMI 30.0-34.9)Encount er for exam of blood pressure w/o abnormal findingsBody mass index (BMI) 30.0-30.9, adult Oct- 9 Zach Robles. [address], [address], [place], [place], [id number] , [place]. tel:[phone] Office/outpa tient visit,est, [facility], [address], [place], [place], [id number], [place] [phone] [facility] Possible food poisoning (chief complaint) Abdominal pain, unspecified abdominal locationEncounter for exam of blood pressure w/o abnormal findingsBody mass index (BMI) 30.0-30.9, adult 9 Donovan Parry. [address] [place] [address], [address], [place], [address], [place]. tel:[phone] Office/outpa tient visit,rosio, alexa Yañez [facility], [address], [place], [place], [id number], [place] tel:[phone] [facility] Establish care (chief complaint) Fatigue, unspecified typeFamily history of breast cancerFamily history of thyroid cancerEncounter to establish careEncounter for exam of blood pressure w/o abnormal findingsBody mass index (BMI) 30.0-30.9, adult Sep-2 0-201 9 Donovan Brinda. [address] [facility], [address], [place], [address], [place]. tel:[phone] Family History Family Member Type Diagnosis Age At Onset No Information Payers Payer name Insurance type Covered alliance party ID Deni barbosa(shaan Kaur ([employer]) [id number] Social History Type Description Quantity Date Captured [...] Sent Future Order: Lab Order CULTURE, SALM/SHIG (85713), Sent on: Sent Future Order: Lab Order [...] Mental Status Date Cognitive Assessment Orientation - [place] ed to time, place, person, situation. Patient Care Teams Name Effective Dates (start - stop) Status Members No Information
--- OUTSIDE RECORDS SUMMARY | 2025-02-03 17:01 | XMS_ITS | Encounter Summary ---
Author Organization [facility] Address [address] [place] [address] Phone Care Team Providers Care Salt Maker Name Role Phone Briana Vázquez NP Primary Care Provider Fany eby Encounter Details Date Type Department Care Team (Late st Contact Info) Description 06/20/2017 Conversion Encounter [facility] - [address] [address] Social History Tobacco Use Types Packs/Day Years [...] on filedocumented in this encounter Care Teams Salt Maker Relationship Specialty Start Date End Date Briana Vázquez NP PCP - General 06/14/17 02/10/23 documented as of this encounter
--- OUTSIDE RECORDS SUMMARY | 2025-02-03 17:01 | XMS_ITS | Encounter Summary ---
Author Organization [facility] Address [address] [place], [place] [address] Phone Care Team Providers Care Thickener Operator Name Role Phone Briana Vázquez NP Primary Care Provider Fany bey Encounter Details Date Type Department Care Team (Late st Contact Info) Description 04/25/2012 Documentation [facility] [address] [place], [place] [id number] Family Medicine, Physician [address] [place] [address] Social History Tobacco Use Types Packs/Day Years [...] on filedocumented in this encounter Care Teams Thickener Operator Relationship Specialty Start Date End Date Briana Vázquez NP PCP - General 06/14/17 02/10/23 documented as of this encounter
--- OUTSIDE RECORDS SUMMARY | 2025-02-03 17:01 | XMS_ITS | Encounter Summary ---
Author Organization [facility] Address [address] [place], [place] [address] Phone Care Team Providers Care Director Of Corporate Strategy Name Role Phone Briana Vázquez NP Primary Care Provider Fany bey Encounter Details Date Type Department Care Team (Late st Contact Info) Description 07/08/2014 Documentation [facility] [address] [place], [place] [id number] Family Medicine, Physician [facility] [place] [address] Social History Tobacco Use Types Packs/Day Years [...] on filedocumented in this encounter Care Teams Director Of Corporate Strategy Relationship Specialty Start Date End Date Briana Vázquez NP PCP - General 06/14/17 02/10/23 documented as of this encounter
--- OUTSIDE RECORDS SUMMARY | 2025-02-03 17:01 | XMS_ITS | Clinical Summary ---
Author Organization [facility] Address [address] [place] [address] Care Team Providers Care Lacquer Sprayer Name Role Phone Unavailable Primary Care Provider [...]
== END 2025-02-03 15:47 | disposition home or self-care (01) ==
PROVIDERS: PCP Nurse Practitioner Family; Visit Provider Physician Assistant
DX: J30.2 Other seasonal allergic rhinitis (principal); J45.21 Mild intermittent asthma with (acute) exacerbation

== ENCOUNTER → 2025-02-03 14:12 | Outpatient (BNVA) | payer OTHER, SELFPAY | PROVIDERS: PCP Nurse Practitioner Family; Visit Provider Physician Assistant | DX: J30.2 Other seasonal allergic rhinitis (principal); J45.21 Mild intermittent asthma with (acute) exacerbation | CPT/HCPCS: 99212 ==

== ENCOUNTER 2025-04-01 12:15 | Outpatient (REF) | payer OTHER, SELFPAY | END 2025-04-01 12:16 | disposition home or self-care (01) | LOC: HO.LNP 12:15 | PROVIDERS: PCP Nurse Practitioner Family; Visit Provider Obstetrics & Gynecology | DX: N76.4 Abscess of vulva (principal) | CPT/HCPCS: 56405; 87070; 87205; 99212 ==

== ENCOUNTER 2025-04-01 12:15 | Outpatient (AMB) | payer OTHER, SELFPAY ==
--- OUTSIDE RECORDS SUMMARY | 2025-04-01 12:17 | XMS_ITS | Encounter Summary ---
Author Organization [facility] Address [address] [place], [place] [address] Phone Care Team Providers Care Bench Assembler Name Role Phone Briana Vázquez NP Primary Care Provider Fnay bey Encounter Details Date Type Department Care Team (Late st Contact Info) Description 07/08/2014 Documentation [facility] Family [facility] [address] [place], [place] [id number] Family Medicine, Physician [facility] [address] Social History Tobacco Use Types Packs/Day Years [...] on filedocumented in this encounter Care Teams Bench Assembler Relationship Specialty Start Date End Date Briana Vázquez NP PCP - General 06/14/17 02/10/23 documented as of this encounter
--- NOTE | 2025-04-01 12:21 | A.OFFVIS_ITS ---
Vital Signs 04/01/25 12:22 Height 5 ft Weight 127 lb BMI 24.8 Intake Visit Reasons: labia cyst ? Black Off Worker Required: No Information Interpreted: non-clinical & clinical Intensive Care Unit Registered Nurse: Intensive Care Unit Registered Nurse Present (Sil HENDRICKSON) Accompanied by: Self / Same As Patient Allergies Seasonal Allergies Allergy (Intermediate, Verified 04/01/25 12:22) Sneezing Is last menstrual period known: Yes Last menstrual period: 03/26/25 HPI Comments Details: Presenting complaining of right labial swelling and painful PFSH Medical History Bipolar 1 disorder, depressed Anxiety Depression Asthma Family History Mother Thyroid condition Maternal Grandmother Colon cancer Asthma Other No family history of mental disorder Social History (Updated 01/20/25 @ 14:04 by Zena Brown MA) Household Members: Family Housing: Apartment Alcohol intake: never Patient Tobacco Use Status: Never used Tobacco e-Cigarette/Vaping Use: Never Used Second Hand Smoke Exposure: No Substance Use Type: Marijuana service: No Current occupational status: employed and disabled Current occupational exposures/hazards: No Cognitive needs: Yes Hearing needs: No Vision needs: Yes Female Reproductive History Menstrual Age of Menarche: 11 Date of last menstrual period: 03/26/25 Review of Systems Const All systems reviewed & are unremarkable except as noted in HPI and below Physical Exam Vital Signs: BMI result Body Mass Index 24.8 General: Yes no CVA tenderness External Female Exam: No normal external appearance (Right up labia majora abscess) and normal appearance of the urethra Speculum Exam - Vagina: normal appearance of the vagina, normal palpation, no lesions and no masses Speculum Exam - Cervix: normal appearance of the cervix, normal palpation, no lesions, no masses and nontender Bimanual exam- vagina & uterus: normal bimanual exam, normal palpation, uterine size normal, normal palpation, uterine shape normal, No Cervical tenderness present and non-tender Bimanual Exam- Adnexa, other: normal adnexae Back/Spine/Pelvis Back: no CVA tenderness Office Procedures Incision/Drainage STEAM CRANE OPERATOR Incision/Drainage STEAM CRANE OPERATOR Details: Before the procedure was started d/w patient the procedure, alternatives (do nothing, medical rx), & all the risks associated with the procedure ( bleeding , infection, vulvar scarring, painful intercourse, injury to vessels, possible need for transfusion with all its risks) then patient signed the consent. Preoperative diagnosis: Right upper labia majora Abscess. Operation: Right upper labia majora I & D Post-operative diagnosis: Same Anesthesia: Lidocaine 1% 3cc used Procedure: The skin was prepped with Betadine, palpation was used for guidance, 11-blade was used to incise the skin contiguous with the abscess cavity. This yielded 5 cc of purulent fluid &substantially decompressed the swelling, a clean dressing was used at the end. The patient tolerated the procedure well. The patient was sent home in stable condition. Discharge Instructions: The patient was instructed to call if temp>100.4, abdominal pain, nausea/vomiting. This note was generated with a voice recognition program. Some errors may have been overlooked during the review of this note. Sometimes these errors may affect the content or meaning of a given sentence. 85572-Z&D of vulva/perineum All charges added?: Procedure code (CPT) selection complete Assessment & Plan Assessment & Plan (1) Vulvar abscess: Code(s): N76.4 - Abscess of vulva Category: Medical Plan: Discussed with the patient the finding on pelvic exam, right labia majora abscess, recommended I&D, see procedure note Instructions given the patient to schedule a follow-up appointment within 2 weeks and to call or go to emergency room in case of vulvar erythema increase in swelling or pain, temperature above 100.4, nausea or vomiting or discoloration of the vulvar skin. All questions answered, the patient verbalized understanding. Orders: Orders Routine Culture w Gram Stain Today N76.4 - Abscess of vulva Incision & Drainage STEAM CRANE OPERATOR Today N76.4 - Abscess of vulva Coding Level of Care Code Est Pt Level 3 (49244) Procedure Only Diagnoses Vulvar abscess N76.4 CPT Codes Incision/Drainage STEAM CRANE OPERATOR - IDGYN 1: 36738-X&D of vulva/perineum ([id number])
[2025-04-01 12:22] VITALS: BMI 24.8
== END 2025-04-01 13:20 | disposition home or self-care (01) ==
LOC: HO.HWS 12:15
PROVIDERS: PCP Nurse Practitioner Family; Visit Provider Obstetrics & Gynecology
DX: N76.4 Abscess of vulva (principal)
CPT/HCPCS: 56405; 99213

== ENCOUNTER 2025-04-16 10:50 | Outpatient (AMB) | payer OTHER, SELFPAY ==
--- NOTE | 2025-04-16 10:53 | A.OFFPC_ITS ---
Vital Signs 04/16/25 10:57 Height 5 ft Weight 127 lb 8 oz BMI 24.9 BP 107/64 Blood Pressure Location Lt brachial Position Sitting Respiration 16 Pulse 63 Pulse Source Pulse Oximeter Temp 98.3 F Temp Source Oral Pulse Oximetry (%) 100 Oxygen Delivery Method Room Air Intake Visit Reasons: 3 mos bipolar 1 disorder, anxiety, depression, Intake Note: patient here for 3 month follow up for bipolar 1 disorder, anxiety and depression Music Researcher Required: No Is last menstrual period known: Yes Last menstrual period: 04/16/25 Post menopausal: No Patient : No Allergies Seasonal Allergies Allergy (Intermediate, Verified 04/16/25 11:02) Sneezing Medication List - Last Reconciled 04/16/25 by Christine Trivedi CNP albuterol sulfate 2.5 mg (3 mL) inhalation QID PRN albuterol sulfate 90 mcg/actuation (Ventolin HFA) 2 puffs inhalation Q4-6H PRN fluoxetine 20 mg PO DAILY 30 days fluticasone propionate 50 mcg/actuation 1 spray intranasal Q12H Tobacco use date assessed: 04/16/25 Dental Screening Dental Screen Date: 04/16/25 Did you have a dental visit in the last 12 months?: Yes Did you have a dental problem in the last 6 months where you did not have access to dental care?: No Was dental information given to patient?: Patient has dentist HPI HPI Comments History of Present Illness Details 29-year-old female presents for bipolar 1 disorder, anxiety, and PTSD follow-up. She admits to taking her medications as prescribed without adverse reactions. Reports controlled anxiety and depressive symptoms. Her mood is generally well controlled. She offers no complaints and denies acute symptoms at this time. [facility] Medical History Bipolar 1 disorder, depressed Anxiety Depression Asthma Family History Mother Thyroid condition Maternal Grandmother Colon cancer Asthma Other No family history of mental disorder Social History (Updated 01/20/25 @ 14:04 by Zena Brown MA) Household Members: Family Housing: Apartment Alcohol intake: never Patient Tobacco Use Status: Never used Tobacco e-Cigarette/Vaping Use: Never Used Second Hand Smoke Exposure: No Substance Use Type: Marijuana Patient : No service: No Current occupational status: employed and disabled Current occupational exposures/hazards: No Cognitive needs: Yes Hearing needs: No Vision needs: Yes Female Reproductive History Menstrual Age of Menarche: 11 Date of last menstrual period: 04/16/25 Questionnaire PHQ-9 Over the last 2 weeks, how often have you been bothered by any of the following problems? 1. Little interest or pleasure in doing things: not at all 2. Feeling down, depressed, or hopeless: not at all 3. Trouble falling or staying asleep, or sleeping too much: several days 4. Feeling tired or having little energy: not at all 5. Poor appetite or overeating: not at all 6. Feeling bad about yourself - or that you are a failure or have let yourself or your family down: not at all 7. Trouble concentrating on things, such as reading the newspaper or watching television: not at all 8. Moving or speaking so slowly that other people could have noticed. Or the opposite - being so fidgety or restless that you have been moving around a lot more than usual: not at all 9. Thoughts that you would be better off or of hurting yourself in some way: not at all Total score: 1 Depression Screening Interpretation: Negative Depression Screening Done: Yes 75417 - PHQ-9 Billing: Yes Source: Developed by Drs. Anthony Nichole, Arleen Do, Vic Patel and colleagues, with an educational jeri from [employer]. Thrive Questionnaire Date Thrive assessed: 11/10/24 I am a: Patient What is your living situation today?: I have a steady place to live Within the past 12 months, did the food you bought not last and you didn't have the money to get more?: Never true Within the past 12 months, did you worry whether your food would run out before you got money to buy more?: Sometimes True Do you have trouble paying for medicines?: No Do you have trouble getting transportation to medical appointments?: No Do you have trouble paying your heating and electricity bill?: No Do you have trouble taking care of your child, family member or friend?: No Do you have trouble with day-to-day activities such as bathing, preparing meals, shopping, managing finances, etc.?: Yes Are you currently unemployed and looking for a job?: No Are you interested in more education?: No Please select the resources that you would like help with: None Currently or been in a relationship where the following occur: No concerns reported THRIVE Score: 1 TEMI-7 AMB Questionnaire TEMI-7 Date TEMI - 7 assessed: 04/16/25 Feeling nervous, anxious, or on edge: 1 = Several days Not being able to stop or control worryin = Not at all Worrying too much about different things: 0 = Not at all Trouble relaxin = Not at all Being so restless that it is hard to sit still: 0 = Not at all Becoming easily annoyed or irritable: 0 = Not at all Feeling afraid as if something awful might happen: 0 = Not at all Total TEMI-7 score (0-4 normal; 5-9 mild; 10-14 moderate; 15-21 severe): 1 Source: Developed by Drs. Anthony Nichole, Arleen Do, Vic Patel and colleagues, with an educational jeri from [employer]. TEMI-7 Assessment Billing TEMI-7 Assessment Tool: TEMI-7 Assessment 40846 Review of Systems Const Details: Const Denies chills, Denies fatigue, Denies fever(s), Denies headache(s) and Denies weakness ENT Denies dizziness and Denies headache(s) Card Denies chest pain, Denies lightheadedness, Denies dyspnea and Denies other (Palpitations) Resp Denies cough, Denies dyspnea, Denies wheezing and Denies other ( shortness of breath) GI Denies abdominal pain, Denies melena, Denies hematochezia, Denies change in bowel habits, Denies dyspepsia and Denies nausea Denies hematuria and Denies dysuria Musc Denies abnormal gait, Denies myalgias, Denies arthralgias, Denies numbness and Denies tingling Skin/Breast Denies rash, Denies unusual bruising and Denies wounds Neuro Denies abnormal gait, Denies dizziness, Denies headache(s), Denies memory loss, Denies numbness, Denies Sensory deficit (Neuro), Denies tingling and Denies wea kness Psych Denies anxiety, Denies depression, Denies memory loss Endo Denies cold intolerance, Denies fatigue, Denies heat intolerance, Denies polydi psia and Denies polyuria Aller/Immun Denies wheezing Physical exam (Primary Care) Vital Signs: Last Vital Signs Temp 98.3 F 04/16/25 10:57 Pulse 63 04/16/25 10:57 Resp 16 04/16/25 10:57 BP 107/64 04/16/25 10:57 Pulse Ox 100 04/16/25 10:57 Oxygen Delivery Method Room Air 04/16/25 10:57 BMI result Body Mass Index 24.9 Tobacco/Smoking Status: Tobacco use Status Tobacco use date assessed 04/16/25 04/16/25 11:00 Patient Tobacco Use Status Never used Tobacco 04/16/25 10:55 e-Cigarette/Vaping Use Never Used 04/16/25 10:55 Depression Screening Interpretation: Negative Thrive Assessment: Date of Thrive Assessment Date Thrive assessed 11/10/24 04/16/25 10:55 Currently or been in a relationship where the following occur: No concerns reported Const Other: General: no acute distress and well developed Nutritional Appearance: well nourished Orientation/consciousness: patient oriented x3 HENMT Head: Yes normocephalic and Yes atraumatic Eyes General: appearance normal, both eyes and all related structures Pupils: Equal, round and reactive pupils present EOM: EOMs intact bilaterally Resp Effort & Inspection: normal respiratory effort Auscultation: clear to auscultation bilaterally Cardio Rate: regular rate Rhythm: regular rhythm Heart sounds: S1 normal heart sound present, S2 normal heart sound present, no gallops, no murmurs and no rubs GI Palpation (GI): No Abdominal aortic bruit present, Soft to palpation, nontender, No hepatosplenomegaly present and No Rebound tenderness present Auscultation: normal bowel sounds General: Yes no CVA tenderness Back/Spine/Pelvis Back: no CVA tenderness Cervical Spine: cervical ROM normal and No Cervical spine tenderness Thoracic/Lumbar Spine: thoraco-lumbar ROM normal, No pain with thoraco-lumbar ROM, No thoracic spinal tenderness and No lumbar spinal tenderness Extrem General: Yes normal to inspection, No edema and No calf tenderness Skin General: warm and dry. Normal skin color. Normal skin turgor Neuro General: patient oriented x3, gait normal and no focal neuro deficit Cranial nerves: Yes Equal, round and reactive pupils present Cognition (Neuro): normal cognition Gait exam (Neuro): Normal gait present Sensory Exam: No Sensory deficit (Neuro) Psych Appearance: grossly normal Affect: normal affect Attitude: cooperative Thought process: Normal thought process present Coding Level of Care Code Est Pt Level 3 (72855) Diagnoses Bipolar 1 disorder, depressed F31.9 Anxiety F41.9 PTSD (post-traumatic stress disorder) F43.10 Additional Codes TEMI-7 Assessment Billing - TEMI-7 Assessment Tool: TEMI-7 Assessment 95934 ([id number]) PHQ-9 - 09879 - PHQ-9 Billing: Yes ([id number]) Assessment & Plan Assessment & Plan (1) Bipolar 1 disorder, depressed: Code(s): F31.9 - Bipolar disorder, unspecified Category: Medical Plan: Reports controlled mood. TEMI-7 in PHQ-9 score is normal. Continue current treatment regimen. Routine exercise encouraged. Follow-up in 3 months or sooner with symptoms or concerns. Verbalized understanding and agreed with treatment plan. (2) Anxiety: Code(s): F41.9 - Anxiety disorder, unspecified Category: Medical Plan: Plan as above. (3) PTSD (post-traumatic stress disorder): Code(s): F43.10 - Post-traumatic stress disorder, unspecified Category: Medical Plan: Plan as above. Medications: Refilled albuterol sulfate 90 mcg/actuation (Ventolin HFA) 2 puffs inhalation Q4-6H PRN 1 ea 11RF for wheezing fluoxetine 20 mg PO DAILY 30 days 30 caps 3RF
[2025-04-16 10:57] VITALS: BP 107/64; PULSE 63; RESP 16; TEMP 36.8; O2SAT 100; BMI 24.9
--- OUTSIDE RECORDS SUMMARY | 2025-04-16 11:54 | XMS_ITS | Encounter Summary ---
Author Organization [facility] Address [address] [place], [place] [id number] Phone Care Team Providers Care Soakers Supervisor Name Role Phone Briana Vázquez NP Primary Care Provider Fany bey Encounter Details Date Type Department Care Team (Late st Contact Info) Description 07/08/2014 Documentation EM Family Medicine [address] [place], [place] [id number] Family Medicine, Physician [facility] [place] [address] Social History Tobacco Use Types Packs/Day Years [...] on filedocumented in this encounter Care Teams Soakers Supervisor Relationship Specialty Start Date End Date Briana Vázquez NP PCP - General 06/14/17 02/10/23 documented as of this encounter
== END 2025-04-16 11:11 | disposition home or self-care (01) ==
LOC: HO.HMCFM 10:51
PROVIDERS: PCP Nurse Practitioner Family; Visit Provider Nurse Practitioner Family
DX: F31.9 Bipolar disorder, unspecified (principal); F41.9 Anxiety disorder, unspecified; F43.10 Post-traumatic stress disorder, unspecified

== ENCOUNTER → 2025-04-16 10:50 | Outpatient (BNVA) | payer OTHER, SELFPAY | PROVIDERS: PCP Nurse Practitioner Family; Visit Provider Nurse Practitioner Family | DX: F31.9 Bipolar disorder, unspecified (principal); F41.9 Anxiety disorder, unspecified; F43.10 Post-traumatic stress disorder, unspecified | CPT/HCPCS: 96127; 99212 ==

== ENCOUNTER 2025-04-21 09:30 | Outpatient (AMB) | payer OTHER, SELFPAY ==
[2025-04-21 09:31] VITALS: BMI 24.8
--- NOTE | 2025-04-21 09:31 | A.OFFVIS_ITS ---
Vital Signs 04/21/25 09:31 Height 5 ft Weight 127 lb BMI 24.8 Intake Visit Reasons: 3 weeks vag cyst follow up Disease Case Manager Required: No Information Interpreted: non-clinical & clinical Stuffing Machine Operator: Stuffing Machine Operator Present (Sil HENDRICKSON) Accompanied by: Self / Same As Patient Allergies Seasonal Allergies Allergy (Intermediate, Verified 04/21/25 09:32) Sneezing HPI Comments Details: Presenting for follow-up from right labial abscess I&D, doing well the abscess resolved completely after drainage, the patient has no complaints. [facility] Medical History Bipolar 1 disorder, depressed Anxiety Depression Asthma Family History Mother Thyroid condition Maternal Grandmother Colon cancer Asthma Other No family history of mental disorder Social History Household Members: Family Housing: Apartment Alcohol intake: never Patient Tobacco Use Status: Never used Tobacco e-Cigarette/Vaping Use: Never Used Second Hand Smoke Exposure: No Substance Use Type: Marijuana service: No Current occupational status: employed and disabled Current occupational exposures/hazards: No Cognitive needs: Yes Hearing needs: No Vision needs: Yes Female Reproductive History Menstrual Age of Menarche: 11 Review of Systems Const All systems reviewed & are unremarkable except as noted in HPI and below Physical Exam Vital Signs: BMI result Body Mass Index 24.8 General: Yes no CVA tenderness External Female Exam: normal external appearance and normal appearance of the urethra Speculum Exam - Vagina: normal appearance of the vagina, normal palpation, no lesions and no masses Speculum Exam - Cervix: normal appearance of the cervix, normal palpation, no lesions, no masses and nontender Bimanual exam- vagina & uterus: normal bimanual exam, normal palpation, uterine size normal, normal palpation, uterine shape normal, No Cervical tenderness present and non-tender Bimanual Exam- Adnexa, other: normal adnexae Back/Spine/Pelvis Back: no CVA tenderness Assessment & Plan Assessment & Plan (1) Vulvar abscess: Comment: Resolved Code(s): N76.4 - Abscess of vulva Category: Medical Plan: Discussed with the patient the finding on pelvic exam, the right labial abscess has resolved completely. Instructions given the patient to call in case symptoms recur. All questions answered, the patient verbalized understanding. Coding Level of Care Code Est Pt Level 3 (26641) Diagnoses Vulvar abscess N76.4
--- OUTSIDE RECORDS SUMMARY | 2025-04-21 10:27 | XMS_ITS | Encounter Summary ---
Author Organization [facility] Address [address] [place], [place] [address] Phone Care Team Providers Care Street Light Repairer Helper Name Role Phone Briana Vázquez NP Primary Care Provider Fany bey Encounter Details Date Type Department Care Team (Late st Contact Info) Description 07/08/2014 Documentation EM Family Medicine [address] [place], [place] [phone] Family Medicine, Physician [facility] [place] [address] Social History Tobacco Use Types Packs/Day Years [...] on filedocumented in this encounter Care Teams Street Light Repairer Helper Relationship Specialty Start Date End Date Briana Vázquez NP PCP - General 06/14/17 02/10/23 documented as of this encounter
== END 2025-04-21 09:36 | disposition home or self-care (01) ==
LOC: HO.HWS 09:30
PROVIDERS: PCP Nurse Practitioner Family; Visit Provider Obstetrics & Gynecology
DX: N76.4 Abscess of vulva (principal)
CPT/HCPCS: 99213

== ENCOUNTER → 2025-04-21 09:30 | Outpatient (BNVA) | payer OTHER, SELFPAY | PROVIDERS: PCP Nurse Practitioner Family; Visit Provider Obstetrics & Gynecology | DX: N76.4 Abscess of vulva (principal) | CPT/HCPCS: 99212 ==

== ENCOUNTER 2025-06-24 10:44 | Outpatient (AMB) | payer OTHER, SELFPAY ==
--- NOTE | 2025-06-24 10:47 | A.OFFVIS_ITS ---
Vital Signs 06/24/25 10:48 Height 5 ft Weight 127 lb BMI 24.8 Intake Visit Reasons: Rt labia abscess Printing Assistant Required: No Information Interpreted: non-clinical & clinical Adolescent Psychiatrist: Adolescent Psychiatrist Present (Sil HENDRICKSON) Accompanied by: Self / Same As Patient Allergies Seasonal Allergies Allergy (Intermediate, Verified 06/24/25 10:48) Sneezing HPI Comments Details: Presenting complaining of a right vulvar abscess that started a week ago and drained and now completely resolved no additional simple PFSH Medical History Bipolar 1 disorder, depressed Anxiety Depression Asthma Family History Mother Thyroid condition Maternal Grandmother Colon cancer Asthma Other No family history of mental disorder Social History Household Members: Family Housing: Apartment Alcohol intake: never Patient Tobacco Use Status: Never used Tobacco e-Cigarette/Vaping Use: Never Used Second Hand Smoke Exposure: No Substance Use Type: Marijuana service: No Current occupational status: employed and disabled Current occupational exposures/hazards: No Cognitive needs: Yes Hearing needs: No Vision needs: Yes Female Reproductive History Menstrual Age of Menarche: 11 Review of Systems Const All systems reviewed & are unremarkable except as noted in HPI and below Physical Exam Vital Signs: BMI result Body Mass Index 24.8 General: Yes no CVA tenderness External Female Exam: normal external appearance and normal appearance of the urethra Speculum Exam - Vagina: normal appearance of the vagina, normal palpation, no lesions and no masses Speculum Exam - Cervix: normal appearance of the cervix, normal palpation, no lesions, no masses and nontender Bimanual exam- vagina & uterus: normal bimanual exam, normal palpation, uterine size normal, normal palpation, uterine shape normal, No Cervical tenderness present and non-tender Bimanual Exam- Adnexa, other: normal adnexae Back/Spine/Pelvis Back: no CVA tenderness Assessment & Plan Assessment & Plan (1) Vulvar abscess: Comment: Resolved Code(s): N76.4 - Abscess of vulva Category: Medical Plan: Discussed with the patient the finding on pelvic exam, no evidence of labial abscess, instructions given the patient to call in case of recurrence of her symptoms. All questions answered, the patient verbalized understanding. Coding Level of Care Code Est Pt Level 3 (53928) Diagnoses Vulvar abscess N76.4
[2025-06-24 10:48] VITALS: BMI 24.8
--- OUTSIDE RECORDS SUMMARY | 2025-06-24 12:15 | XMS_ITS | Encounter Summary ---
Author Organization [facility] Address [address] [place], [place] [phone] Phone Care Team Providers Care Low Heel Builder Name Role Phone Briana Vázquez NP Primary Care Provider Fany bey Encounter Details Date Type Department Care Team (Late st Contact Info) Description 07/08/2014 Documentation EM Family Medicine [address] [place], [place] [phone] Family Medicine, Physician [facility] [place] [address] Social History Tobacco Use Types Packs/Day Years [...] on filedocumented in this encounter Care Teams Low Heel Builder Relationship Specialty Start Date End Date Briana Vázquez NP PCP - General 06/14/17 02/10/23 documented as of this encounter
--- OUTSIDE RECORDS SUMMARY | 2025-06-24 12:15 | XMS_ITS | Clinical Summary ---
Author Organization [facility] Address [address] [place] [address] Care Team Providers Care Hazardous Material Specialist Name Role Phone Unavailable Primary Care Provider [...] Vaccine ( - 2023-2 5 season) 2024 Depression Screening 11/04/2024 Influenza Vaccine (#1) 2025 HIB Vaccines Aged Out No longer eligi [...] age to complete this topic Meningococcal B Vaccine Aged Out No l onger eligible based on patient's age to complete this topic Pneumococcal Vaccine: Pediat rics (0 to 5 Years) and At-Risk Patients (6 to 49 Years) Aged Out No longer eligible b ased on patient's age to complete this topic RSV Immunization Patients Un radha 20 months Aged Out No longer eligible b ased on patient's age to complete this topic Varicella Vaccines Aged Out No longer eligible based on patient's age to complete this topic
== END 2025-06-24 11:00 | disposition home or self-care (01) ==
LOC: HO.HWS 10:44
PROVIDERS: PCP Nurse Practitioner Family; Visit Provider Obstetrics & Gynecology
DX: N76.4 Abscess of vulva (principal)
CPT/HCPCS: 99213

== ENCOUNTER → 2025-06-24 10:44 | Outpatient (BNVA) | payer OTHER, SELFPAY | PROVIDERS: PCP Nurse Practitioner Family; Visit Provider Obstetrics & Gynecology | DX: N76.4 Abscess of vulva (principal) | CPT/HCPCS: 99212 ==

== ENCOUNTER 2025-08-09 12:30 | Outpatient (AMB) | payer OTHER, SELFPAY ==
--- NOTE | 2025-08-09 12:37 | A.OFFPC_ITS ---
Vital Signs 08/09/25 12:41 Height 5 ft Weight 141 lb BMI 27.5 BP 103/60 Blood Pressure Location Rt brachial Position Sitting Respiration 16 Pulse 70 Pulse Source Pulse Oximeter Temp 98.5 F Temp Source Oral Pulse Oximetry (%) 98 Oxygen Delivery Method Room Air Intake Visit Reasons: 3 mos bipolar 1 disorder, anxiety, depression, Intake Note: patient here for 3 month follow up on bipolar 1 disorder, anxiety and depression Manager Furniture Required: No Is last menstrual period known: Yes Last menstrual period: 07/28/25 Post menopausal: No Patient : No Allergies Seasonal Allergies Allergy (Intermediate, Verified 08/09/25 12:47) Sneezing Medication List - Last Reconciled 08/09/25 by Christine Trivedi CNP albuterol sulfate 2.5 mg (3 mL) inhalation QID PRN albuterol sulfate 90 mcg/actuation (Ventolin HFA) 2 puffs inhalation Q4-6H PRN fluoxetine 20 mg PO DAILY 30 days fluticasone propionate 50 mcg/actuation 1 spray intranasal Q12H Tobacco use date assessed: 08/09/25 Dental Screening Dental Screen Date: 08/09/25 Did you have a dental visit in the last 12 months?: Yes Did you have a dental problem in the last 6 months where you did not have access to dental care?: No Was dental information given to patient?: Patient has dentist HPI HPI Comments History of Present Illness Details 29-year-old female presents for bipolar 1 disorder, anxiety, and PTSD follow-up. She admits to taking her medications as prescribed without adverse reactions. Reports controlled anxiety and depressive symptoms. Her mood is generally well controlled. She gained about 14 lb since her last visit about 6 weeks ago. She notes that she craved sweet foods and was eating poorly. She now has less sugar cravings and has been making healthy dietary choices. She intends to start going to the gym. She was seen by therapist in the past and does not wish to pursue therapy at this time. She started working at the [employer] about 3 months ago and has been enjoying work. She has been attending religion regularly. She offers no complaints and denies acute symptoms at this time. [facility] Medical History Bipolar 1 disorder, depressed Anxiety Depression Asthma Family History Mother Thyroid condition Maternal Grandmother Colon cancer Asthma Other No family history of mental disorder Social History Household Members: Family Housing: Apartment Alcohol intake: never Patient Tobacco Use Status: Never used Tobacco e-Cigarette/Vaping Use: Never Used Second Hand Smoke Exposure: No Substance Use Type: Marijuana service: No Current occupational status: employed and disabled Current occupational exposures/hazards: No Cognitive needs: Yes Hearing needs: No Vision needs: Yes Female Reproductive History Menstrual Age of Menarche: 11 Date of last menstrual period: 07/28/25 Questionnaire PHQ-9 Over the last 2 weeks, how often have you been bothered by any of the following problems? 1. Little interest or pleasure in doing things: not at all 2. Feeling down, depressed, or hopeless: not at all 3. Trouble falling or staying asleep, or sleeping too much: not at all 4. Feeling tired or having little energy: not at all 5. Poor appetite or overeating: several days 6. Feeling bad about yourself - or that you are a failure or have let yourself or your family down: not at all 7. Trouble concentrating on things, such as reading the newspaper or watching television: not at all 8. Moving or speaking so slowly that other people could have noticed. Or the opposite - being so fidgety or restless that you have been moving around a lot more than usual: not at all 9. Thoughts that you would be better off or of hurting yourself in some way: not at all Total score: 1 Depression Screening Interpretation: Negative Depression Screening Done: Yes 96297 - PHQ-9 Billing: Yes Source: Developed by Drs. Anthony Nichole, Arleen Do, Vic Patel and colleagues, with an educational jeri from [email or web address]. Thrive Questionnaire Date Thrive assessed: 11/10/24 I am a: Patient What is your living situation today?: I have a steady place to live Within the past 12 months, did the food you bought not last and you didn't have the money to get more?: Never true Within the past 12 months, did you worry whether your food would run out before you got money to buy more?: Sometimes True Do you have trouble paying for medicines?: No Do you have trouble getting transportation to medical appointments?: No Do you have trouble paying your heating and electricity bill?: No Do you have trouble taking care of your child, family member or friend?: No Do you have trouble with day-to-day activities such as bathing, preparing meals, shopping, managing finances, etc.?: Yes Are you currently unemployed and looking for a job?: No Are you interested in more education?: No Please select the resources that you would like help with: None Currently or been in a relationship where the following occur: No concerns reported THRIVE Score: 1 TEMI-7 AMB Questionnaire TEMI-7 Date TEMI - 7 assessed: 08/09/25 Feeling nervous, anxious, or on edge: 0 = Not at all Not being able to stop or control worryin = Not at all Worrying too much about different things: 0 = Not at all Trouble relaxin = Not at all Being so restless that it is hard to sit still: 0 = Not at all Becoming easily annoyed or irritable: 0 = Not at all Feeling afraid as if something awful might happen: 0 = Not at all Total TEMI-7 score (0-4 normal; 5-9 mild; 10-14 moderate; 15-21 severe): 0 Source: Developed by Drs. Anthony Nichole, Arleen Do, Vic Patel and colleagues, with an educational jeri from [email or web address]. TEMI-7 Assessment Billing TEMI-7 Assessment Tool: TEMI-7 Assessment 06542 Review of Systems Const Details: Const Denies chills, Denies fatigue, Denies fever(s), Denies headache(s) and Denies weakness ENT Denies dizziness and Denies headache(s) Card Denies chest pain, Denies lightheadedness, Denies dyspnea and Denies other (Palpitations) Resp Denies cough, Denies dyspnea, Denies wheezing and Denies other ( shortness of breath) GI Denies abdominal pain, Denies melena, Denies hematochezia, Denies change in bowel habits, Denies dyspepsia and Denies nausea Denies hematuria and Denies dysuria Musc Denies abnormal gait, Denies myalgias, Denies arthralgias, Denies numbness and Denies tingling Skin/Breast Denies rash, Denies unusual bruising and Denies wounds Neuro Denies abnormal gait, Denies dizziness, Denies headache(s), Denies memory loss, Denies numbness, Denies Sensory deficit (Neuro), Denies tingling and Denies weakness Psych Denies anxiety, Denies depression, Denies memory loss Endo Denies cold intolerance, Denies fatigue, Denies heat intolerance, Denies polydipsia and Denies polyuria Aller/Immun Denies wheezing Physical exam (Primary Care) Tobacco/Smoking Status: Tobacco use Status Tobacco use date assessed 04/16/25 08/09/25 12:40 Patient Tobacco Use Status Never used Tobacco 08/09/25 12:40 e-Cigarette/Vaping Use Never Used 08/09/25 12:40 Depression Screening Interpretation: Negative Thrive Assessment: Date of Thrive Assessment Date Thrive assessed 11/10/24 08/09/25 12:40 Currently or been in a relationship where the following occur: No concerns reported Const Other: General: no acute distress and well developed Nutritional Appearance: well nourished Orientation/consciousness: patient oriented x3 HENMT Head: Yes normocephalic and Yes atraumatic Eyes General: appearance normal, both eyes and all related structures Pupils: Equal, round and reactive pupils present EOM: EOMs intact bilaterally Resp Effort & Inspection: normal respiratory effort Auscultation: clear to auscultation bilaterally Cardio Rate: regular rate Rhythm: regular rhythm Heart sounds: S1 normal heart sound present, S2 normal heart sound present, no gallops, no murmurs and no rubs GI Palpation (GI): No Abdominal aortic bruit present, Soft to palpation, nontender, No hepatosplenomegaly present and No Rebound tenderness present Auscultation: normal bowel sounds General: Yes no CVA tenderness Back/Spine/Pelvis Back: no CVA tenderness Cervical Spine: cervical ROM normal and No Cervical spine tenderness Thoracic/Lumbar Spine: thoraco-lumbar ROM normal, No pain with thoraco-lumbar ROM, No thoracic spinal tenderness and No lumbar spinal tenderness Extrem General: Yes normal to inspection, No edema and No calf tenderness Skin General: warm and dry. Normal skin color. Normal skin turgor Neuro General: patient oriented x3, gait normal and no focal neuro deficit Cranial nerves: Yes Equal, round and reactive pupils present Cognition (Neuro): normal cognition Gait exam (Neuro): Normal gait present Sensory Exam: No Sensory deficit (Neuro) Psych Appearance: grossly normal Affect: normal affect Attitude: cooperative Thought process: Normal thought process present Coding Level of Care Code Est Pt Level 3 (58071) Diagnoses Bipolar 1 disorder, depressed F31.9 Anxiety F41.9 PTSD (post-traumatic stress disorder) F43.10 Additional Codes TEMI-7 Assessment Billing - TEMI-7 Assessment Tool: TEMI-7 Assessment 35454 ([id number]) PHQ-9 - 00717 - PHQ-9 Billing: Yes ([id number]) Assessment & Plan Assessment & Plan (1) Bipolar 1 disorder, depressed: Code(s): F31.9 - Bipolar disorder, unspecified Category: Medical Plan: Rports controlled anxiety and depressive symptoms. Her mood is generally well controlled. PHQ-9 and TEMI-7 scores are normal. Continue current treatment regimen. Healthy diet and routine exercise encouraged. Follow-up in 3 months or sooner with symptoms or concerns. Verbalized understanding and agreed with the plan. (2) Anxiety: Code(s): F41.9 - Anxiety disorder, unspecified Category: Medical Plan: Plan as above. (3) PTSD (post-traumatic stress disorder): Code(s): F43.10 - Post-traumatic stress disorder, unspecified Category: Medical Plan: Plan as above. Medications: Refilled fluoxetine 20 mg PO DAILY 30 caps 3RF 30 days
[2025-08-09 12:41] VITALS: BP 103/60; PULSE 70; RESP 16; TEMP 36.9; O2SAT 98; BMI 27.5
--- OUTSIDE RECORDS SUMMARY | 2025-08-09 14:50 | XMS_ITS | Encounter Summary ---
Author Organization [facility] Address [address] [place] [address] Phone Care Team Providers Care Digital Advisor Name Role Phone Briana Vázquez NP Primary Care Provider Fany bey Encounter Details Date Type Department Care Team (Late st Contact Info) Description 06/20/2017 Conversion Encounter [facility] - [address] [address] Social History Tobacco Use Types Packs/Day Years [...] on filedocumented in this encounter Care Teams Digital Advisor Relationship Specialty Start Date End Date Briana Vázquez NP PCP - General 06/14/17 02/10/23 documented as of this encounter
--- OUTSIDE RECORDS SUMMARY | 2025-08-09 14:50 | XMS_ITS | Encounter Summary ---
Author Organization [facility] Address [address] [place], [place] [id number] Phone Care Team Providers Care Communications Technologist Name Role Phone Briana Vázquez NP Primary Care Provider Fany bey Encounter Details Date Type Department Care Team (Late st Contact Info) Description 07/08/2014 Documentation [facility] Family Medicine [address] [place], [place] [id number] Family Medicine, Physician [facility] [place] [address] Social History Tobacco Use Types Packs/Day Years [...] on filedocumented in this encounter Care Teams Communications Technologist Relationship Specialty Start Date End Date Briana Vázquez NP PCP - General 06/14/17 02/10/23 documented as of this encounter
--- OUTSIDE RECORDS SUMMARY | 2025-08-09 14:50 | XMS_ITS | Clinical Summary ---
Author Organization [facility] ity Address [address] [place] [address] Care Team Providers Care Kiln Tester Name Role Phone Unavailable Primary Care Provider [...] Cervical Cancer Screening: P ap Smear 2015 HPV Vaccines (1 - 3-dose SCD M series) 2021 Depression Screening 11/04/2024 COVID-19 Vaccine ( - 2023-2 5 season) 2025 Influenza Vaccine (#1) 2025 RSV Immunization Adult Patie nts (1 - 1-dose 75+ series) 2069 HIB Vaccines Aged Out No longer eligi [...]
--- OUTSIDE RECORDS SUMMARY | 2025-08-09 14:50 | XMS_ITS | Encounter Summary ---
Author Organization [facility] Address [address] [place], [place] [id number] Phone Care Team Providers Care Geospatial Intelligence Analyst Name Role Phone Briana Vázquez NP Primary Care Provider Fany bey Encounter Details Date Type Department Care Team (Late st Contact Info) Description 04/25/2012 Documentation EM Family Medicine [address] [place], [place] [phone] Family Medicine, Physician [address] [place] [address] Social History Tobacco Use Types Packs/Day Years [...] on filedocumented in this encounter Care Teams Geospatial Intelligence Analyst Relationship Specialty Start Date End Date Briana Vázquez NP PCP - General 06/14/17 02/10/23 documented as of this encounter
--- OUTSIDE RECORDS SUMMARY | 2025-08-09 14:51 | XMS_ITS | Encounter Summary ---
Author Organization [facility] Address [address] [place], [place] [phone] Phone Care Team Providers Care Kiln Furniture Saw Tender Name Role Phone Briana Vázquez NP Primary Care Provider Fany bey Encounter Details Date Type Department Care Team (Late st Contact Info) Description 06/07/2015 Documentation [facility] Family Medicine [address] [place] [address] Family Medicine, Physician [facility] [place] [address] Social History Tobacco Use Types Packs/Day Years [...] on filedocumented in this encounter Care Teams Kiln Furniture Saw Tender Relationship Specialty Start Date End Date Briana Vázquez NP PCP - General 06/14/17 02/10/23 documented as of this encounter
--- OUTSIDE RECORDS SUMMARY | 2025-08-09 14:51 | XMS_ITS | Clinical Summary ---
Author Organization [facility] Address [address] [place] [address] Phone Care Team Providers Care Metalsmith Name Role Phone Unavailable Primary Care Provider [...] 64 05/30/2015 12:00 AM EDT Temperature 36 C (96.8 F) 11/19/2012 12:00 AM EST Respiratory Rate - [...] of 2 - 13+ 2-dose series) 2007 DTaP,Tdap,and Td Vaccines (8 - Td or Tdap) 03/15/2025 03/15/2015, 08/21/2006, 11/03/1999, Additional history exists Influenza Vaccines (#1) 2025 11/19/19 13, 07/12/2010, 07/19/2009, Additional history exists COVID-19 Vaccine ( season) 2025 Hepatitis B Vaccines Completed 04/03/1995, 1994, 1994 [...] complete this topic Procedures * Due to [place] state law, this organization might not be sharing sensitive test results. Procedure Name Priority Date/Time Associated Diagnosis Comments CHLAMYDIA AND GONORRHEA, AMPLIFIED Routine 03/16/2015 3:15 PM EDT from Last 3 Months or Most Recently Relevant to Health Maintenance Results * Due to [place] state law, this organization might not be sharing sensitive test results. * Chlamydia and Gonorrhoea, Amplified (03/16/2015 3:15 PM EDT) URINE CHLAMYDIA AMP PROBE NEGATIVE [facility] Comment: No Chlamydia Trachomatis RNA detected in this patient's sample (REFERENCE RANGE/NORMAL VALUE: NOT DETECTED) URINE GC [facility] NEGATIVE [facility] Comment: No Neisseria Gonorrhoeae RNA detected in this patient's sample (REFERENCE RANGE/NORMAL VALUE: NOT DETECTED) NOTE: This test uses supervisory examiner-mediated amplification method to detect rRNA from C.Trachomatis [...] without risk of sexual abuse. Consult the [facility] if needed. Contact phone number . Therapeutic failure or success cannot be determined with the Aptima Combo2 assay since nucleic acid may persist following appropriate antimicrobial therapy. The Centers for Disease Control and Prevention (CDC) recommends confirmatory retesting using culture or a different nucleic acid amplification test when positive results occur, if indicated. Testing performed or reported by [facility], a Service of [facility], [address] [place] [id number] Levi Dye MD, PhD, Publishing Agent 03/16/2015 3:15 PM EDT Narrative [facility] - 03/16/2015 3:15 PM EDT URINE CHLAMYDIA GC AMP PROBE us Briana Vázquez NP LAB MICROBIOLOGY - GENERAL OR DERABLES Final Result [facility] [address] [place] [address], [place] from Last 3 Months or Most Recently Relevant to Health Maintenance
== END 2025-08-09 12:58 | disposition home or self-care (01) ==
LOC: HO.HMCFM 12:31
PROVIDERS: PCP Nurse Practitioner Family; Visit Provider Nurse Practitioner Family
DX: F31.9 Bipolar disorder, unspecified (principal); F41.9 Anxiety disorder, unspecified; F43.10 Post-traumatic stress disorder, unspecified

== ENCOUNTER → 2025-08-09 12:30 | Outpatient (BNVA) | payer OTHER, SELFPAY | PROVIDERS: PCP Nurse Practitioner Family; Visit Provider Nurse Practitioner Family | DX: F31.9 Bipolar disorder, unspecified (principal); F41.9 Anxiety disorder, unspecified; F43.10 Post-traumatic stress disorder, unspecified | CPT/HCPCS: 96127; 99212 ==

== ENCOUNTER 2025-10-05 21:43 | Emergency (ER) | payer OTHER, SELFPAY ==
--- OUTSIDE RECORDS SUMMARY | 2016-10-22 08:15 | XMS_ITS | Continuity of Care Document ---
Author Organization [facility] Address [address] [place] [address] Care Team Providers Care Precision Instrument Maker Name Role Phone Cher Colin Unavailable Unavailable Advance Directives Directive Yes / No Effective Date File Name No Information Encounters Encounter Description Practice Location Reason(s) For Visit Diagnoses Date Provider Providers Copied on Encounter [facility], [address], [place], [place], [id number], [address] No Information Hoang Kwon. [address] [facility] , [address], [place], [address], [place]. tel:[phone] Family History Family Member Type Diagnosis Age At Onset No Information Payers Payer name Insurance type Covered green party ID Authoriza tion(s) No Information Social History Type Description Quantity Date Captured Comments Sex Female Smoking Status No Information Chief Complaint And Reason For Visit No Information Reason For Referral Reason For Referral No Information History Of Present Illness Encounter Date Complaint History Of Prese nt Illness No Information Functional Status Date Functional Assessmen t No Information Instructions Date Instruction Additional Infor mation No Information Assessments Type Assessment Date No Information Patient Care Teams Name Effective Dates (start - stop) Status Members No Information
--- OUTSIDE RECORDS SUMMARY | 2019-11-25 10:30 | XMS_ITS | Continuity of Care Document ---
Author Organization [facility] Address [address] [place] [address] Phone Care Team Providers Care Pet Counselor Name Role Phone Brinda Man MD Unavailable Unavailable Allergies, Adverse Reactions, Alerts Substance Reaction Status Criticality No Known Allergies Active No Inform ation Medications Medication Instructions Dosage Effective Dates (start - stop) Status Comments Florastor 250 mg capsule take 1 tablet by oral route every day 1 tablet - Active Procedures Procedure Date Office/outpatient visit,est, mod 2019 Most Recent Systolic BP W/in 12 Mos <130 mm Hg Most Recent Diastolic BP W/in 12 Mos 80- 89 mm Hg BODY MASS INDEX DOCD Urinalysis, automated, w/o scope 2018 Specimen handling/transport Office/outpatient visit,est, mod 2018 Most Recent Systolic BP W/in 12 Mos <130 mm Hg Most Recent Diastolic BP W/in <80 mm Hg BODY MASS INDEX DOCD Specimen handling/transport Urinalysis, automated, w/o scope 2018 Urine test Office/outpatient visit,est, mod 2018 Most Recent Systolic BP W/in 12 Mos <130 mm Hg Most Recent Diastolic BP W/in 12 Mos 80- 89 mm Hg BODY MASS INDEX DOCD Office/outpatient visit,new, mod 2018 Most Recent Systolic BP W/in 12 Mos 130- 139 Mm Most Recent Diastolic BP W/in 12 Mos 80- 89 mm Hg BODY MASS INDEX DOCD Advance Directives Directive Yes / No Effective Date File Name No Information Encounters Encounter Description Practice Location Reason(s) For Visit Diagnoses Date Provider Providers Copied on Encounter Office/outpa tient visit,est, [facility], [facility], [place], [place], [id number], tel:[phone] [facility] Blood in stool (chief complaint) Blood in stoolEncounter for exam of blood pressure w/o abnormal findingsBody mass index (BMI) 30.0-30.9, adult 0 Donovan Rasmussenelia. [address] [place] [address], [address], [place], [address], [place]. [phone] Office/outpa tient visit,[facility], [facility], [address] [place] [address] [facility] [address], [place], [place], [id number], [phone] [facility] PT C/O BURNING WITH URINATION X 1 EPISODE (chief complaint) DysuriaObesity (BMI 30.0-34.9)Encount er for exam of blood pressure w/o abnormal findingsBody mass index (BMI) 30.0-30.9, adult Oct- 9 Zach Robles. [address], [address], [place], [place], [id number] , [place]. tel:[phone] Office/outpa tient visit,est, [facility], [address], [place], [place], [id number], [place] [phone] [facility] Possible food poisoning (chief complaint) Abdominal pain, unspecified abdominal locationEncounter for exam of blood pressure w/o abnormal findingsBody mass index (BMI) 30.0-30.9, adult 9 Donovan Parry. [address] [place] [address], [address], [place], [address], [place]. tel:[phone] Office/outpa tient visit,rosio, alexa Yañez [facility], [address], [place], [place], [id number], [place] tel:[phone] [facility] Establish care (chief complaint) Fatigue, unspecified typeFamily history of breast cancerFamily history of thyroid cancerEncounter to establish careEncounter for exam of blood pressure w/o abnormal findingsBody mass index (BMI) 30.0-30.9, adult Sep-2 0-201 9 Donovan Brinda. [address] [facility], [address], [place], [address], [place]. tel:[phone] Family History Family Member Type Diagnosis Age At Onset No Information Payers Payer name Insurance type Covered green party ID Deni barbosa(shaan Kaur ([employer]) [id number] Social History Type Description Quantity Date Captured Comments Alcohol Use Details Unknown Caffeine Use Details Unknown Tobacco Use Status Current non-smoker Smoking Status Never smoker Non-Smoking Tobacco Use Details : No Details Available : No Details Available Sex Female Vital Signs Date / Time: Height Weight BMI Pulse Rate Blood Pressure Temperature Respiratory Rate Body Surface Area Head Circumference Head Circ. Percentile Wt./Scott. Percentile BMI percentile Pulse Ox Inhaled Ox 3:47 PM 61.00 in 74.389 kg (164.00 lbs) 30.9 9 kg/m eter (2) 72 /min 120/80 mm[Hg] 97.70 F 16 /min Chief Complaint And Reason For Visit From encounter dated '11/25/2019 15:30'. Blood in stool (chief complaint). Description: Onset: 4 days ago. Duration day. Associated symptomsinclude bloating. Pertinent negatives include decreased appetite, diarrhea, heartburn, perirectal itching, vomiting and weight loss. Additional information: 24 yr old female here for evaluation of 7 days of dark red stool. Pt has not had this happen before, denies abdominal pain, not constipated. Does have anal intercourse, does not use condoms. Reason For Referral Reason For Referral No Information Plan Of Treatment Date Type Action Status Future Order: Lab Order GIARDIA AG DETECTION ([id number]), Sent on: Sent Future Order: Lab Order OVA AND PARASITE ([id number]), Sent on: Sent Future Order: Lab Order CULTURE, SALM/SHIG ([id number]), Sent on: Sent Future Order: Lab Order OVA & PA RASITE X3 ([id number]), Sent on: Sent History Of Present Illness Encounter Date Complaint History Of Prese nt Illness Blood in stool Onset: 4 days ag o. Duration day. Associated symptoms include bloating. Pertinent negatives include decreased appetite, diarrhea, heartburn, perirectal itching, vomiting and weight loss. Additional information: 24 yr old female here for evaluation of 7 days of dark red stool. Pt has not had this happen before, denies abdominal pain, not constipated. Does have anal intercourse, does not use condoms. PT C/O BURNING WITH URINATION X 1 EPISODE PT C/O BURNING WITH URINATION X 1 EPISODE SINCE THIS MORNING. Patient has had UTIs in the past, which this feels like initially. She usually uses large amounts of cranberry juice and water to wash out the infection. She does urinate after intercourse. Possible food poisoning 24 yr ol d female here with concern for food poisoning, pt ate dinner at [employer] on Sat night, had carne asada bowl, has been having body aches, diarrhea, bloating, abdominal pain and chills. No fever, feels nauseated and dry heaving. Has been using restroom q 10 mins, tried Pepto bismol, vomited last night. Establish care 23 yr old female here to establish care, concerned about her strong family hx of breast and thyroid cancer. Aunt had breast cancer, father had thyroid cancer. Does not take any daily medications, no known allergiesPast surgical hx includes breast augmentation 01/2019. As a had meconium aspiration requiring surgery as an .Pt does not smoke, no recreational drug use. One ETOH per week.Last pap was in 2018 thru [facility], per pt normal, HPV negative. Pt is in a monogamous relationship, not currently on contraception. Pt has had approx 10 lifetime partners, STD screening negative. Functional Status Date Functional Assessmen t No Information Instructions Date Instruction Additional Infor mation Urinalysis showed a small blood, with negative nitrates and leukocytes. Related to Dysuria Urine sent for culture. Related to Dysuria Patient must reduce portion sizes to lose weight. Related to Obesity (BMI 30.0-34.9) Encourage patient to get into a routine aerobic exercise program. Related to Obesity (BMI 30.0-34.9) Encouraged patient t o use cranberry pills and vitamin C prophylactically Related to Dysuria Patient did take Pyr idium until the results come back. Related to Dysuria Assessments Type Assessment Date assessment Blood in stool assessment Encounter for exam of blood pres sure w/o abnormal findings assessment Body mass index (BMI) 30.0-30.9, adult Mental Status Date Cognitive Assessment Orientation - [place] ed to time, place, person, situation. Patient Care Teams Name Effective Dates (start - stop) Status Members No Information
--- NOTE | ~2025-10-05 | XR_ITS ---
CLINICAL HISTORY: pain constipation 1 view abdomen Comparison: None provided Findings: No pneumoperitoneum or pneumatosis. No definite gas identified over the expected location of the rectum. No dilated loops of bowel or evidence for bowel obstruction. Bxtd-tu-kmqgueoo colonic stool burden visualized. No acute fractures. IMPRESSION: 1. Nonobstructed bowel-gas pattern. 2. Isvm-zt-tehupfdo colonic stool burden. This document has been electronically signed by: Nader Wan MD on 10/06/2025 04:05:58
[2025-10-05 21:48] VITALS: BP 125/80; PULSE 83; RESP 16; TEMP 36.7; O2SAT 98; BMI 29.2
--- NOTE | 2025-10-05 21:49 | ED_ITS ---
HPI - General Adult General Chief complaint: Abdominal Pain Stated complaint: pain in the belly button down Time Seen by Provider: 10/06/25 02:45 Source: patient Limitations: no limitations History of Present Illness ED Provider: Beverly Dupont PA-C HPI narrative: 30-year-old female With a history of bipolar, anxiety and depression who presents with abdominal pain since earlier this evening. Pain originates in periumbilical region, and radiates to the vagina. Unable to describe the nature of her discomfort. Denies abdominal distention, nausea vomiting, inability to pass gas, she does not think that she is constipated. Denies dysuria, abnormal vaginal discharge or risk for STD. No risk for , no vaginal bleeding. Related Data Previous Rx's ?Medication ?Instructions ?Recorded albuterol sulfate 2.5 mg/3 mL 2.5 mg (3 mL) inhalation QID PRN 09/13/23 (0.083 %) solution for nebulization shortness of breat h or wheezing #90 mL fluticasone propionate 50 1 spray intranasal Q12H #16 grams 02/03/25 mcg/actuation nasal spray,suspension albuterol sulfate 90 mcg/actuation 2 puff inhalation Q 4-6H PRN for 04/16/25 aerosol inhaler (Ventolin HFA) wheezing #1 ea fluoxetine 20 mg capsule 20 mg PO DAILY 30 days #30 c aps 08/09/25 Allergies Allergy/AdvReac Type Severity Reaction Status Date / Time Seasonal Allergies Allergy Intermediate Sneezing Verified 10/05/25 21:48 Review of Systems 2 Review of Systems: Yes all other systems are reviewed and are negative Constitutional: Constitutional: Denies fatigue and Denies fever(s) Cardiovascular: Cardiovascular: Denies chest pain and Denies dyspnea Respiratory: Respiratory: Denies cough and Denies dyspnea Gastrointestinal: Gastrointestinal: Reports abdominal pain, Denies constipation, Denies nausea and Denies vomiting Genitourinary: Genitourinary: Denies dysuria, Denies pelvic pain and Denies vaginal discharge Endocrine: Endocrine: Denies fatigue PMFSH Past Medical History Attestation statement: The following information was validated with the patient. Medical History Bipolar 1 disorder, depressed Anxiety Depression Asthma Family History Family History Mother Thyroid condition Maternal Grandmother Colon cancer Asthma Other No family history of mental disorder Social History Social History Household Members: Family Housing: Apartment Alcohol intake: never Patient Tobacco Use Status: Never used Tobacco Smoked in Last 30 Days: No e-Cigarette/Vaping Use: Never Used Second Hand Smoke Exposure: No Use of substances other than those prescribed or required for medical reasons: No Substance Use Type: Marijuana Advance Directives: No Advance Directives Information Provided: Yes Patient : No service: No Current occupational status: employed and disabled Current occupational exposures/hazards: No Cognitive needs: Yes Hearing needs: No Vision needs: Yes Physical Exam ED Vital Signs: Vital Signs - 24 hr 10/05/25 21:48 10/06/25 03:20 10/06/25 04:20 Temperature 98.1 F 98.0 F 98.0 F Pulse Rate 83 70 70 Respiratory Rate 16 20 20 Blood Pressure 125/80 112/68 112/68 Pulse Oximetry 98 100 100 Oxygen Delivery Method Room Air Room Air Room Air BMI result Body Mass Index 29.2 Const Other: alert well-appearing Orientation/consciousness: patient oriented x3 Resp Effort & Inspection: normal respiratory effort Cardio Other: normal peripheral perfusion GI Other: abdomen is soft, nondistended, nontender to deep palpation no guarding Skin Other: warm dry no rash Neuro General: patient oriented x3, gait normal and no focal motor deficits Psych Other: cooperative Course Course Course Narrative: Lilli Krishna, 10/05/252151 Medical screening exam performed. 30-year-old female presented hospital today for sudden onset of umbilical pain. Radiates down to her genital area. It is intermittent in nature. Denies any dysuria. Happened all of a sudden this evening. No surgeries in the past. No vaginal discharge no vaginal bleeding. Abdominal lab workup will be obtained. UA will be obtained. Medical Decision Making Medical Decision Making MDM Narrative: 30-year-old female With a history of bipolar, anxiety and depression who presents with abdominal pain since earlier this evening. Pain originates in periumbilical region, and radiates to the vagina. Unable to describe the nature of her discomfort. Denies abdominal distention, nausea vomiting, inability to pass gas, she does not think that she is constipated. Denies dysuria, abnormal vaginal discharge or risk for STD. No risk for , no vaginal bleeding. problem: Psychiatric illness History: Per patient I have considered the following differential diagnoses: UTI, bowel obstruction, constipation, STD, TOA Plan: The patient's symptoms are very nonspecific, she has a an unremarkable abdominal exam, all of your screening labs including a urinalysis are also unremarkable. She has no risk for STD she has no new vaginal discharge that would warrant a pelvic exam. She could be constipated, adding on a KUB. She does not have any associated symptoms concerning for a bowel obstruction. She is not require advanced imaging. I have independently reviewed the following tests: Labs: No leukocytosis, not anemic, no electrolyte abnormality, not , urine not infected KUB:Findings: No pneumoperitoneum or pneumatosis. No definite gas identified over the expected location of the rectum. No dilated loops of bowel or evidence for bowel obstruction. Qgev-ny-wavgwjye colonic stool burden visualized. No acute fractures. IMPRESSION: 1. Nonobstructed bowel-gas pattern. 2. Glno-fq-gftcpmjk colonic stool burden. Differential Diagnosis Differential Diagnoses: The differential diagnosis associated with the presentation includes See medical decision-making Admission/Observation Consideration of admission/observation: Escalation of care including admission/observation considered Not applicable Lab Data MDM Lab Attestation statement: I reviewed the patient's lab results. 10/05/25 22:01 10/05/25 22:01 Labs: Lab Results 10/05/25 10/05/25 Range/Units 22:01 22:06 WBC 10.9 H (4.8-10.8) X10*3/uL RBC 4.19 L (4.20-5.50) X10*6/uL Hgb 12.4 (12.0-16.0) g/dl Hct 37.3 (37.0-47.0) % MCV 89.0 (80.0-98.0) fL MCH 29.6 (27.0-33.0) pg MCHC 33.2 (31.0-35.0) g/dl RDW 12.5 (11.0-16.0) % Plt Count 314 (160-400) X10*3/uL MPV 9.5 (9.4-12.3) fL Immature Gran % (Auto) 0.3 (0.0-0.4) % Neut % (Auto) 62.0 (45-73) % Lymph % (Auto) 26.1 (20-40) % [place] % (Auto) 8.6 (2-11) % Eos % (Auto) 2.6 (0-4) % Baso % (Auto) 0.4 (0-2) % Lymph # (Auto) 2.8 (1.2-4.9) X10*3/uL [place] # (Auto) 0.9 (0.1-1.2) X10*3/uL Eos # (Auto) 0.3 (0.0-0.4) X10*3/uL Baso # (Auto) 0.0 (0.0-0.2) X10*3/uL Abs Immat Gran (auto) 0.03 (0.00-0.03) X10*3/uL Absolute Neuts (auto) 6.8 (2.0-8.3) x10*3/uL Absolute Nucleated RBC 0.000 (0.0-0.012) X10*3/uL Nucleated RBC % (auto) 0.0 (0.0-0.2) /100WBC Sodium 140 (135-145) mmol/L Potassium 3.7 (3.3-5.1) mmol/L Chloride 109 H (96-108) mmol/L Carbon Dioxide 24 (22-29) mmol/L Anion Gap 11 L (12-20) BUN 16 (9-16) mg/dL Creatinine 0.74 (0.5-1.4) mg/dL Estim Creat Clear Calc 94.6 Estimated GFR > 60 Random Glucose 75 (60-115) mg/dL Calcium 8.9 (8.4-10.2) mg/dL Total Bilirubin 0.4 (0.0-1.0) mg/dL AST 22 (5-31) U/L ALT 32 H (0-31) U/L Alkaline Phosphatase 86 (39-117) U/L Total Protein 7.4 (6.5-8.0) g/dL Albumin 4.6 (3.5-5.0) g/dL Lipase 36 (8-78) U/L Beta HCG, Quant < 2 mIU/mL Urine Color Yellow Urine Appearance Clear Urine pH 7.0 (5.0-9.0) Ur Specific [place] 1.025 (1.005-1.025) Urine Protein Negative (Neg-Trace) mg/dL Urine Glucose (UA) Negative (Negative) mg/dL Urine Ketones Negative (Negative) mg/dL Urine Blood Negative (Negative) Urine Nitrite Negative (Negative) Ur Leukocyte Esterase Negative (Negative) Radiology Impression Discussion of test interpretation with radiology: I have reviewed the radiologist's reading. Discharge Plan Discharge Clinical Impression: Constipation Qualifiers: Constipation type: unspecified constipation type Qualified Code(s): K59.00 - Constipation, unspecified Patient Disposition: Home, Self-Care Instructions: Constipation (ED) Additional Instructions: All of your screening labs including a urinalysis were normal, the x-ray revealed that you were extremely constipated. See home care instructions. You need to purchase elku-upd-ryfqmhh Colace this is a stool softener, take it twice a day. In addition, you need to purchase vojg-aha-ocgdcrl MiraLax, take it 4 to 5 times a day, until you begin having multiple large volume bowel movements. Follow up with your primary care provider as needed. Prescriptions: No Action albuterol sulfate 2.5 mg /3 mL (0.083 %) solution for nebulization 2.5 mg inhalation QID PRN (Reason: shortness of breath or wheezing) Qty: 90 3RF albuterol sulfate [Ventolin HFA] 90 mcg/actuation HFA aerosol inhaler 2 puff inhalation Q4-6H PRN (Reason: for wheezing) Qty: 1 11RF fluticasone propionate 50 mcg/actuation spray,suspension 1 spray intranasal Q12H Qty: 16 0RF Rx Instructions: administer into each nostril fluoxetine 20 mg capsule 20 mg PO DAILY 30 Days Qty: 30 3RF Stand Alone Forms: Work/School Release Interventions: ED Discharge Assessment Last Done: 10/06/25 04:20 Discharge Date/Time: 10/06/25 04:24 Print Language: Tamazight
[2025-10-05 22:14] LABS: MANUAL DIFF FLAG NO
[2025-10-05 22:16] LABS: Hematocrit 37.3 % (37.0-47.0); Hemoglobin 12.4 g/dl (12.0-16.0); Imm Gran Abs Auto 0.03 X10*3/uL (0.00-0.03); Imm Gran Pct Auto 0.3 % (0.0-0.4); Lymphocytes Absolute Auto 2.8 X10*3/uL (1.2-4.9); Mean Corpuscular HGB Conc 33.2 g/dl (31.0-35.0); Mean Corpuscular Hemoglobin 29.6 pg (27.0-33.0); Mean Corpuscular Volume 89.0 fL (80.0-98.0); NRBC Abs Auto 0.000 X10*3/uL (0.0-0.012); NRBC Pct Auto 0.0 /100WBC (0.0-0.2); Platelet Count 314 X10*3/uL (160-400); Red Blood Count 4.19 X10*6/uL (4.20-5.50); White Blood Count 10.9 X10*3/uL (4.8-10.8)
[2025-10-05 22:29] LABS: Albumin Level 4.6 g/dL (3.5-5.0); Alkaline Phosphatase 86 U/L (39-117); Anion Gap 11 (12-20); Aspartate Amino Transferase 22 U/L (5-31); Blood Urea Nitrogen 16 mg/dL (9-16); Calcium 8.9 mg/dL (8.4-10.2); Carbon Dioxide 24 mmol/L (22-29); Chloride 109 mmol/L (96-108); Creatinine Clr Calc Pharmacy 94.6; Estimated Glomerular Filt Rate > 60; Potassium 3.7 mmol/L (3.3-5.1); Sodium 140 mmol/L (135-145); Total Protein 7.4 g/dL (6.5-8.0)
[2025-10-05 22:41] LABS: Alanine Aminotransferase 32 U/L (0-31)
--- OUTSIDE RECORDS SUMMARY | 2025-10-06 03:13 | XMS_ITS | Encounter Summary ---
Author Organization [facility] Address [address] [place], [place] [phone] Phone Care Team Providers Care Scrip Clerk Name Role Phone Briana Vázquez NP Primary Care Provider Fany bey Encounter Details Date Type Department Care Team (Late st Contact Info) Description 04/25/2012 Documentation EM Family Medicine [address] [place], [place] [phone] Family Medicine, Physician [address] [place] [address] Social History Tobacco Use Types Packs/Day Years [...] on filedocumented in this encounter Care Teams Scrip Clerk Relationship Specialty Start Date End Date Briana Vázquez NP PCP - General 06/14/17 02/10/23 documented as of this encounter
--- OUTSIDE RECORDS SUMMARY | 2025-10-06 03:13 | XMS_ITS | Clinical Summary ---
Author Organization [facility] [employer] [facility] ity Address [address] [place] [address] Care Team Providers Care Vocational Auto Body Instructor Name Role Phone Unavailable Primary Care Provider [...] series) 2021 Depression Screening 11/04/2024 COVID-19 Vaccine (1 - 2024-2 6 season) 2025 Influenza Vaccine (#1) 2025 RSV [...]
--- OUTSIDE RECORDS SUMMARY | 2025-10-06 03:13 | XMS_ITS | Encounter Summary ---
Author Organization [facility] Address [address] [place] [address] Phone Care Team Providers Care Medical Record Administrator Name Role Phone Briana Vázquez NP Primary Care Provider Fany bey Encounter Details Date Type Department Care Team (Late st Contact Info) Description 06/20/2017 Conversion Encounter [facility] - [address] [address] Social History Tobacco Use Types Packs/Day Years [...] on filedocumented in this encounter Care Teams Medical Record Administrator Relationship Specialty Start Date End Date Briana Vázquez NP PCP - General 06/14/17 02/10/23 documented as of this encounter
--- OUTSIDE RECORDS SUMMARY | 2025-10-06 03:13 | XMS_ITS | Encounter Summary ---
Author Organization [facility] Address [address] [place], [place] [phone] Phone Care Team Providers Care Assembler Aircraft Power [employer] Name Role Phone Briana Vázquez NP Primary Care Provider Fany bey Encounter Details Date Type Department Care Team (Late st Contact Info) Description 07/08/2014 Documentation EM Family Medicine [address] [place], [place] [phone] Family Medicine, Physician [facility] [place] [address] Social History Tobacco Use Types Packs/Day Years [...] on filedocumented in this encounter Care Teams Assembler [employer] Relationship Specialty Start Date End Date Briana Vázquez NP PCP - General 06/14/17 02/10/23 documented as of this encounter
--- OUTSIDE RECORDS SUMMARY | 2025-10-06 03:13 | XMS_ITS | Clinical Summary ---
Author Organization [facility] Address [address] [place] [address] Phone Care Team Providers Care Hollock Maker Name Role Phone Unavailable Primary Care Provider [...] PM EDT) URINE CHLAMYDIA AMP PROBE NEGATIVE [facility] Comment: No Chlamydia Trachomatis RNA detected in this patient's sample (REFERENCE RANGE/NORMAL VALUE: NOT DETECTED) URINE GC AMP PROBE NEGATIVE [facility] Comment: No Neisseria Gonorrhoeae RNA detected in this patient's sample (REFERENCE RANGE/NORMAL VALUE: NOT DETECTED) NOTE: This test uses shank archer-mediated amplification method to detect rRNA from C.Trachomatis [...] without risk of sexual abuse. Consult the [facility] if needed. Contact phone number . Therapeutic failure or success cannot be determined with the Aptima Combo2 assay since nucleic acid may persist following appropriate antimicrobial therapy. The Centers for Disease Control and Prevention (CDC) recommends confirmatory retesting using culture or a different nucleic acid amplification test when positive results occur, if indicated. Testing performed or reported by [facility], a Service of [facility], [address] [place] [id number] eLvi Dye MD, PhD, Any Commodity Buyer 03/16/2015 3:15 PM EDT Narrative [facility] - 03/16/2015 3:15 PM EDT URINE CHLAMYDIA GC AMP PROBE us Briana Vázquez NP LAB MICROBIOLOGY - GENERAL OR DERABLES Final Result [facility] [address] [place] [address], [place] from Last 3 Months or Most Recently Relevant to Health Maintenance
--- OUTSIDE RECORDS SUMMARY | 2025-10-06 03:13 | XMS_ITS | Encounter Summary ---
Author Organization [facility] Address [address] [place], [place] [phone] Phone Care Team Providers Care Lithograph Printer Name Role Phone Briana Vázquez NP Primary Care Provider Fany bey Encounter Details Date Type Department Care Team (Late st Contact Info) Description 06/07/2015 Documentation [facility] [facility] [address] [place] [address] Family Medicine, Physician [facility] [place] [address] Social History Tobacco Use Types Packs/Day Years [...] on filedocumented in this encounter Care Teams Lithograph Printer Relationship Specialty Start Date End Date Briana Vázquez NP PCP - General 06/14/17 02/10/23 documented as of this encounter
[2025-10-06 03:20] VITALS: BP 112/68; PULSE 70; RESP 20; TEMP 36.7; O2SAT 100
[2025-10-06 04:20] VITALS: BP 112/68; PULSE 70; RESP 20; TEMP 36.7; O2SAT 100
== END 2025-10-06 04:24 | disposition home or self-care (01) ==
PROVIDERS: Student in an Organized Health Care Education/Training Program; Emergency Provider Emergency Medicine; PCP Nurse Practitioner Family
DX: K59.00 Constipation, unspecified (principal)
CPT/HCPCS: 36415; 74018; 80053; 81003; 83690; 84702; 85025; 99283; 99284

== ENCOUNTER → 2025-10-06 02:46 | Outpatient (BNV) | payer OTHER, SELFPAY | PROVIDERS: Emergency Provider Emergency Medicine; PCP Nurse Practitioner Family; Visit Provider Radiology Diagnostic Radiology | DX: K59.00 Constipation, unspecified (principal) | CPT/HCPCS: 74018 ==